=== PATIENT | male | born 1980 | race African-American/Black ===

== ENCOUNTER 2019-08-29 13:02 | Emergency (ER) | payer OTHER, SELFPAY ==
[2019-08-29 13:25] VITALS: BP 150/74; PULSE 84; RESP 20; TEMP 36.7; O2SAT 100
--- NOTE | 2019-08-29 13:50 | ED.SKABFB ---
HPI - Skin/Abscess/Foreign Bdy General Chief complaint: Skin/Abscess/Foreign Body Stated complaint: Boil on Buttock Time Seen by Provider: 08/29/19 13:50 Source: patient Mode of arrival: ambulatory History of Present Illness HPI narrative: PATIENT PRESENTS WITH AREA OF TENDERNESS TO LEFT BUTTOCK. PATIENT STATES IT HAS BEEN THERE FOR 7 DAYS. NO DRAINAGE. NO STREAKING. NO FEVER PATIENT HAS BEEN APPLYING NEOSPORON AND WASHING WITH ANTIBACTERIAL SOAP. Related Data Allergies Allergy/AdvReac Type Severity Reaction Status Date / Time No Known Allergies Allergy Verified 08/29/19 13:45 Review of Systems Review of Systems: Narrative: CONSTITUTIONAL: Denies fever, chills, or sweats. EYES: Denies visual changes, redness, or discharge. ENT: Denies rhinorrhea, congestion, sore throat, or otalgia. CARDIOVASCULAR: Denies chest pain, palpitations, or edema. RESPIRATORY: Denies cough or dyspnea. GASTROINTESTINAL: Denies abdominal pain, nausea, vomiting, or diarrhea. GENITOURINARY: Denies dysuria or hematuria. SKIN: Denies rash or itching. TENDER AREA TO LEFT BUTTOCK MUSCULOSKELETAL: Denies back pain, joint pain, or myalgia. NEUROLOGIC: Denies headache, numbness, or weakness. PSYCHIATRIC: Denies anxiety or depression. All systems reviewed & are unremarkable except as noted in HPI and below PMFSH Social History Social History Gender identity (if verbalized by the patient): Male Comments At time of signature, agree with nursing past medical, surgical, social and family history. There is no relevant family history pertinent to the presenting complaint Exam Narrative: Exam Narrative: GENERAL: Well-appearing, well-nourished, and in no acute distress. HEAD: Normocephalic, atraumatic. EYES: PERRLA and EOMI. ENT: Nares clear, no rhinorrhea or epistaxis. Mucous membranes moist. NECK: Supple. CHEST: Clear to auscultation. No respiratory distress. HEART: Regular rate and rhythm. No murmur heard. Normal peripheral pulses. ABDOMEN: Soft, nontender, nondistended, normal active bowel sounds. EXTREMITIES: Normal range of motion. No edema. SKIN: Warm, dry, no rash. 2CM FIRM AREA TO LEFT BUTTOCK NO STREAKING NO DRAINAGE NO INDURATION NO FLUCTUATION NO INDICATION FOR I & D NEURO: No focal deficits. Alert and oriented x3. [place] Coma Scale Eye Opening: Spontaneous 4 [place] Coma Scale Motor: Obeys Commands 6 [place] Coma Scale Verbal: Oriented 5 [place] Coma Scale Total 15 Skin: Full body images: 1. 2CM ABSCESS Course Vital Signs Vital signs: Vital Signs Temperature 36.7 C 08/29/19 13:25 Pulse Rate 84 08/29/19 13:25 Respiratory Rate 08/29/19 13:25 Blood Pressure 150/74 H 08/29/19 13:25 Pulse Oximetry 100 08/29/19 13:25 Temperature 36.7 C 08/29/19 13:25 Pulse Rate 84 08/29/19 13:25 Respiratory Rate 08/29/19 13:25 Blood Pressure 150/74 H 08/29/19 13:25 Pulse Oximetry 100 08/29/19 13:25 Please LALA schedule a followup visit with your personal physician for further evaluation and treatment. Including recheck and discussion of your blood pressure. If your symptoms persist, change or worsen significantly before you can contact your personal physician then please, without delay, go to the emergency department for further evaluation MDM - Skin/Abscess/Foreign Bdy Differential Diagnosis Differential diagnosis: Likely abscess of skin or subcutaneous tissue, urticaria, herpes zoster, allergic reaction to drug, cellulitis, eczema and insect bites Critical Care Time Critical Care Time Critical Care Time: No Discharge Plan Discharge Clinical Impression: Abscess of skin or subcutaneous tissue, Cellulitis Patient Disposition: Home, Self-Care Condition: Stable Instructions: Antibiotic Form Additional Instructions: Warm compresses to the area 20-30 minutes 4-6 times a day and as needed elevate the area if possible antibiotic as direc
== END 2019-08-29 14:05 | disposition home or self-care (01) ==
PROVIDERS: Emergency Provider Nurse Practitioner Family
DX: L02.31 Cutaneous abscess of buttock (principal); L03.317 Cellulitis of buttock
CPT/HCPCS: 99203; G0463

== ENCOUNTER 2021-01-04 09:41 | Emergency (ER) | payer OTHER, SELFPAY ==
--- NOTE | 2021-01-04 09:44 | ED.SKABFB ---
HPI - Skin/Abscess/Foreign Bdy General Chief complaint: Wound/Laceration Stated complaint: boils Time Seen by Provider: 01/04/21 09:44 Source: patient and RN notes reviewed History of Present Illness HPI narrative: Patient is a 40-year-old male who presents the urgent care with complaints of abscesses to the buttocks and right thigh. Patient states that he gets boils frequently and typically is able to heal them on their own at home with warm compress, peroxide, Neosporin and Hibiclens . Patient states that he has done the home remedies for the last month without any improvement. Patient states the areas are draining but he feels that they are throbbing . Patient denies of any nausea, vomiting, fevers. No other acute complaints. No acute distress noted. Patient aware of the plan of care. Some parts of this dictation were generated by voice recognition software and may contain typographical and/or grammatical inaccuracies. Related Data Allergies Allergy/AdvReac Type Severity Reaction Status Date / Time No Known Allergies Allergy Verified 01/04/21 10:00 Review of Systems Review of Systems: Narrative: CONSTITUTIONAL: Denies fever, chills, or sweats. EYES: Denies visual changes, redness, or discharge. ENT: Denies rhinorrhea, congestion, sore throat, or otalgia. CARDIOVASCULAR: Denies chest pain, palpitations, or edema. RESPIRATORY: Denies cough or dyspnea. GASTROINTESTINAL: Denies abdominal pain, nausea, vomiting, or diarrhea. GENITOURINARY: Denies dysuria or hematuria. SKIN: Reports of abscesses to the buttocks and right thigh MUSCULOSKELETAL: Denies back pain, joint pain, or myalgia. NEUROLOGIC: Denies headache, numbness, or weakness. All other systems reviewed are negative, except as documented in HPI. PMFSH Social History Social History Gender identity (if verbalized by the patient): Male Comments At the time of my signature, I reviewed and agree with the nursing past medical, surgical, social, and family history. There is no relevant family history pertinent to the patient complaint. Exam Narrative: Exam Narrative: GENERAL: This is a well-nourished, well-developed patient, in no apparent distress. HEAD: normocephalic, atraumatic. EYES: PERRL. Sclera clear/white. Vision is grossly intact. EARS: External ears normal NOSE: External nose normal with no obvious nasal discharge, nares without redness, no rhinorrhea. THROAT: Mucous membranes moist NECK: Neck supple CARDIOVASCULAR: Regular rate and rhythm without murmurs, gallops, or rubs. RESPIRATORY: Clear to auscultation. Breath sounds equal bilaterally. No wheezes, rales, or rhonchi. SKIN: 5 x 5 cm of firm nonfluctuant abscess with 2 cm draining center to the right lateral thigh, 2 x 2 centimeter draining abscess to the right gluteal fold, 2 x 2 centimeter abscess draining to the left gluteal fold NEURO: awake, alert, and oriented to person, place and time. There were no obvious focal neurologic abnormalities. EXTREMITIES: No clubbing, cyanosis, or edema. Course Vital Signs Vital signs: Vital Signs Temperature 99.1 F 01/04/21 09:53 Pulse Rate 86 01/04/21 09:53 Respiratory Rate 20 01/04/21 09:53 Blood Pressure 143/90 H 01/04/21 09:53 Pulse Oximetry 100 01/04/21 09:53 Temperature 99.1 F 01/04/21 09:53 Pulse Rate 86 01/04/21 09:53 Respiratory Rate 20 01/04/21 09:53 Blood Pressure 143/90 H 01/04/21 09:53 Pulse Oximetry 100 01/04/21 09:53 Reviewed-patient is informed that they may have pre-hypertension or hypertension based on a blood pressure reading in the department. I recommend the patient call the primary care provider listed on their discharge instructions or a physician of their choice this week to arrange follow-up for further evaluation of possible pre-hypertension or hypertension. MDM - Skin/Abscess/Foreign Bdy MDM Narrative Medical decision making narrative: Advised the
[2021-01-04 09:53] VITALS: BP 143/90; PULSE 86; RESP 20; TEMP 37.3; O2SAT 100
== END 2021-01-04 10:15 | disposition home or self-care (01) ==
PROVIDERS: Emergency Provider Nurse Practitioner Family; PCP Family Medicine
DX: L02.31 Cutaneous abscess of buttock (principal); L02.415 Cutaneous abscess of right lower limb
CPT/HCPCS: 99213; G0463

== ENCOUNTER 2022-06-29 10:27 | Emergency (ER) | payer SELFPAY ==
--- NOTE | 2022-06-29 10:30 | ED.EXTPRO ---
HPI - Extremity Problem General Chief complaint: Skin/Abscess/Foreign Body Stated complaint: Left Foot /Toe Pain Time Seen by Provider: 06/29/22 10:30 Source: patient Mode of arrival: ambulatory Limitations: no limitations History of Present Illness HPI Narrative: Zachary is a 42-year-old male patient presenting to the clinic today with complaints of left great toe pain x2 months He reports it is painful and swollen at the distal joint. He denies any injury to the toe. He denies any fever or chills. Is able to move the toe with mild pain Related Data Allergies Allergy/AdvReac Type Severity Reaction Status Date / Time No Known Allergies Allergy Verified 06/29/22 10:38 Review of Systems Review of Systems: Pertinent positives per HPI. Patient denies any fever, chills, rash, headache, visual changes, dizziness, cough, runny nose, sore throat, shortness of breath, chest pain, palpitations, nausea, vomiting, diarrhea, constipation, abdominal pain, or any urinary issues. PMFSH Social History Social History Gender identity (if verbalized by the patient): Male Comments At the time of my signature, I reviewed and agree with the nursing past medical, surgical, social, and family history. There is no relevant family history pertinent to the patient complaint. Exam Narrative: General: Well-developed, well nourished, in no apparent distress Head: Normocephalic, atraumatic. Cardio: Regular rate and rhythm, s1 and s2 normal, no murmur appreciated. Resp: Clear to auscultation bilaterally, no rhonchi, rales, wheezing or rubs. Musculoskeletal: No deformity, redness and swelling noted at the PIP joint, tender to palpation over the PIP joint of the left great, grossly normal range of motion, muscle strength strong and equal, peripheral pulse strong, no edema, no cyanosis, normal gait and station Course Course Emergency Course: Portions of this record may have been created with voice recognition software. Level of Care: Express Care Visit Vital Signs Vital signs: Vital Signs Temperature 36.9 C 06/29/22 10:36 Pulse Rate 71 06/29/22 10:36 Respiratory Rate 16 06/29/22 10:36 Blood Pressure 132/84 06/29/22 10:36 Pulse Oximetry 99 06/29/22 10:36 Oxygen Delivery Room Air 06/29/22 10:36 Temperature 36.9 C 06/29/22 10:36 Pulse Rate 71 06/29/22 10:36 Respiratory Rate 16 06/29/22 10:36 Blood Pressure 132/84 06/29/22 10:36 Pulse Oximetry 99 06/29/22 10:36 Oxygen Delivery Room Air 06/29/22 10:36 Vital signs reviewed MDM - Extremity (Nontraumatic) MDM Narrative Medical decision making narrative: At the time of visit patient is resting comfortably on exam table. no sign of an ingrown toenail.I suspect the patient either has gouty arthritis or possibly an infection. Prescription for prednisone, colchicine, and doxycycline was sent to the pharmacy. Supportive measures were discussed with the patient and he voiced understanding of discharge instructions agrees to treatment plan Differential Diagnosis Differential diagnosis: Likely cellulitis and other ( Gouty arthritis, infection) Discharge Plan Discharge Clinical Impression: Pain of great toe Qualifiers: Laterality: left Qualified Code(s): M79.675 - Pain in left toe(s) Patient Disposition: Home, Self-Care Condition: Stable Instructions: Antibiotic Form, Low Purine Diet (ED), Gout (ED) Additional Instructions: Take prednisone, colchicine, and doxycycline as prescribed May take Tylenol/ Motrin as needed for pain/fever Follow-up with your PCP and 1 week if symptoms persist or sooner if they worsen Prescriptions: New doxycycline monohydrate 100 mg capsule 100 mg PO BID 7 Days Qty: 14 0RF prednisone 20 mg tablet 40 mg PO DAILY 5 Days Qty: 10 0RF colchicine 0.6 mg capsule 0.6 mg PO DAILY Qty: 3 0RF Rx Instructions: take 2 caps x1 do
[2022-06-29 10:36] VITALS: BP 132/84; PULSE 71; RESP 16; TEMP 36.9; O2SAT 99
== END 2022-06-29 10:45 | disposition home or self-care (01) ==
PROVIDERS: Emergency Provider Nurse Practitioner Family; PCP Family Medicine
DX: M79.675 Pain in left toe(s) (principal)
CPT/HCPCS: 99213; G0463

== ENCOUNTER 2024-06-20 13:16 | Emergency (ER) | payer OTHER, SELFPAY ==
[2024-06-20 13:30] VITALS: BP 188/100; PULSE 128; RESP 20; TEMP 37.5; O2SAT 100
--- NOTE | 2024-06-20 13:57 | ED_ITS ---
HPI - Skin/Abscess/Foreign Bdy General Chief complaint: Skin/Abscess/Foreign Body Stated complaint: Skin Sore Time Seen by Provider: 06/20/24 13:55 Source: patient, RN notes reviewed and old records reviewed Mode of arrival: ambulatory Limitations: no limitations History of Present Illness HPI narrative: 44 year old male presents to express care with complaint of draining abscess from his left inner fold buttock that is painful for the past week which is worsening. Patient reports that he has had previous abscess to same area X2 in the past and had to have surgical debridement done at [facility] by Dr Lugo who is no longer there. Patient reports that site opened today and started draining with some relief in pressure to area. Patient reports that he has taken Tylenol applied MARÍA, and applied warm compresses to site. MD complaint: abscess/boil Onset (ago): week(s) (1) Location: buttocks (left inner fold of left buttock) Severity scale (1-10): 10 Quality: aching, sharp and constant Treatments prior to arrival: other (Tylenol MARÍA, warm compresses) Related Data Allergies Allergy/AdvReac Type Severity Reaction Status Date / Time No Known Allergies Allergy Verified 06/20/24 14:05 Review of Systems Review of Systems: CONSTITUTIONAL: Denies fever, chills, or sweats. CARDIOVASCULAR: Denies chest pain, palpitations, or edema. RESPIRATORY: Denies cough or dyspnea. GASTROINTESTINAL: Denies abdominal pain, nausea, vomiting SKIN: Reports redness and swelling. Reports purulent drainage from left mid inner buttock which started today, pain beyond proportion MUSCULOSKELETAL: Denies myalgia. NEUROLOGIC: Denies headache, numbness All systems reviewed & are unremarkable except as noted in HPI and below PMFSH Past Medical History Medical History (Updated 06/22/24 @ 14:20 by Bethany Alexander NP) History of drainage of abscess Abscess of left buttock Social History Social History Gender identity (if verbalized by the patient): Male Comments At time of signature, agree with nursing past medical, surgical, social and family history. There is no relevant family history pertinent to the presenting complaint Exam Narrative: GENERAL: Well-appearing, well-nourished, and in some acute distress. HEAD: Normocephalic, atraumatic. EYES: PERRLA and EOMI. ENT: Nares clear, no rhinorrhea or epistaxis. Mucous membranes moist.TM's normal throat pink with no swelling NECK: Supple. no lymphadenopathy CHEST: Clear to auscultation. No respiratory distress. SAO2 100% on room air HEART: Regular rate and rhythm. No murmur heard. Normal peripheral pulses. ABDOMEN: Soft, nontender, nondistended, normal active bowel sounds. EXTREMITIES: Normal range of motion. No edema. SKIN: Warm, dry. Erythema, tenderness, fluctuant tissue to the left mid inner buttocks warmth with tissue 4cm length and 3 cm width with purulent bloody drainage noted, wound culture obtained and expressed some of the purulent drai nage from wound, cleansed tissue with wound cleanser and applied fluffed 4X4's to area. NEURO: No focal deficits. Alert and oriented x3. Course Course Emergency Course: Patient is aware of diagnosis, understands and agrees to treatment plan. Anticipatory guidance given. Patient agrees to follow-up as directed and is aware of reasons to seek care at the emergency department. Portions of this record may have been created with voice recognition software Level of Care: Express Care Visit Vital Signs Vital signs: Vital Signs Temperature 37.5 C 06/20/24 13:30 Pulse Rate 128 H 06/20/24 13:30 Respiratory Rate 20 06/20/24 13:30 Blood Pressure 188/100 H 06/20/24 13:30 Pulse Oximetry 100 06/20/24 13:30 Oxygen Delivery Room Air 06/20/24 13:30 Temperature 37.5 C 06/20/24 13:30 Pulse Rate 128 H 06/20/24 13:30 Respiratory Rate 20 06/20/24 13:30 Blood Pressure 188/100 H 06/20/24 13:30 Pulse Oximetry 100 06/20/24 13:30 Oxygen Delivery Room Air 06/20/24 13:30 Reviewed MDM - Skin/Abscess/Foreign Bdy MDM Narrative Medical decision making narrative: Does not appear at this time to be erythema multiforme, bullous, SJS, TEN; no evidence at this time to suggest RMSF, endocarditis or Lyme disease; patient looks well, nontoxic and is tolerating oral intake; no neurologic signs or symptoms; no headache, photophobia or neck pain; afebrile; appropriate for initial outpatient treatment; discussed the importance of follow-up, patient agrees. Patient does not have history of penetrating trauma, laceration, blunt trauma, recent surgery, immunosuppression, malignancy, obesity, alcoholism, corticosteroid use. Question cellulitis, necrotizing soft tissue infection, abscess. Differential Diagnosis Differential diagnosis: Likely abscess of skin or subcutaneous tissue, cellulitis and other (bacterial wound infection) Medical Records Attestation: I reviewed the patient's medical records. Critical Care Time Critical Care Time Critical Care Time: No Discharge Plan Discharge Clinical Impression: Abscess of left buttock Patient Disposition: Home, Self-Care Condition: Stable Instructions: Antibiotic Form, Abscess (ED) Additional Instructions: Standard shower and wash left buttocks using Hibiclens soap twice daily then apply Bactroban ointment watch for increasing infection--redness, swelling, drainage Tylenol or ibuprofen for fever or pain [place] for severe pain #10. Given Call who is our surgeon on-call at [facility] to set up appointment [phone] follow up with PCP in 7-10 days for a wound check recheck if develop fever, chills, increasing symptom Go to the ER if your symptoms become worse of if ANY new symptoms develop Wound culture sent Antibiotic ordered take all doses with food If your symptoms persist, change or worsen significantly before you can contact your personal physician then please, without delay, go to the emergency department for further evaluation. Follow-up with PCP in 7-10 days or sooner if needed Follow up with PCP soon in regards to your blood pressure which is elevated above threshold for referral. Blood pressure above 120/80 may indicate pre- hypertension.188/100 Patient Language: Citizen Of [place] Prescriptions: New clindamycin HCl 300 mg capsule 300 mg PO Q8H Qty: 30 0RF hydrocodone-acetaminophen 5-325 mg tablet 1 tablet PO Q6H PRN (Reason: pain) Qty: 10 0RF mupirocin 2 % ointment 1 applic topical BID Qty: 22 0RF Follow-up/Referrals: Rc,Bj Kaminski MD [Primary Care Provider] - Ritchie Jacobson DO [Physician] - (abscess left buttock has had 2 previous surgery's on area. wound culture sent patient started on oral clindamycin) Time of Disposition: 14:16 Quality [place] Coma Scale Eyes: Open Verbal: Oriented and Alert Motor: Follows Commands [place] Coma Total Score: 15
--- OUTSIDE RECORDS SUMMARY | 2024-06-27 19:49 | XMS_ITS | Encounter Summary ---
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 Name Role Phone Bj Tatum MD Primary Care Provider [phone] Jonas Marte MD Unavailable Reason for Referral * Consult, Test & Initiate Treatment (Routine) - Canceled Specialty Diagnoses / Procedures Referred By Contportia solis Referred To Contact Diagnoses Hidradenitis suppurativa of anus Jonas Marte MD #[address] [address] Phone: tel: fax: DERMATOLOGY & [facility] SURG[facility] [address] [place] [address] Phone: tel: Referral ID Status Reason Start Date Expiration Date V isits Requested Visits Authorized [id number] Canceled 01/17/2024 1 1 Scheduling Instructions Zachary is being referred to dermatology or other specialist in patient's insurance network for hidradenitis suppurativa of anus See below for Zahcary's current medications, allergies and problem list. CURRENT MEDS: Current Outpatient Medications: MAGNESIUM LACTATE PO, Take by mouth., Disp: , Rfl: POTASSIUM CHLORIDE PO, Take by mouth., Disp: , Rfl: sulfamethoxazole-trimethoprim DS (BACTRIM DS, SEPTRA DS) 800-160 MG Tablet, Take 1 Tablet by mouth 2 times daily for 14 days., Disp: 28 Tablet, Rfl: 0 Turmeric (QC TUMERIC COMPLEX PO), Take 1,000 mg by mouth., Disp: , Rfl: VITAMIN D PO, Take by mouth daily., Disp: , Rfl: No current facility-administered medications for this visit. ALLERGIES: No Known Allergies PROBLEM LIST: Patient Active Problem List: Hidradenitis suppurativa Rectal bleeding Family history of colon cancer Ex-smoker Elevated liver enzymes Hematuria History of substance abuse (HCC) Hyperglycemia Hepatic steatosis Lesion of pancreas Adult acne Leukocytosis Obesity (BMI 30-39.9) Toe pain, left Noncompliance Hyperlipidemia Reason for Visit * Reason Comments Abscess Encounter Details Date Type Department Care Team (Late st Contact Info) Description 01/17/2024 12:00 PM CDT Office Visit [facility] - General Surgery [facility] [address] [address] Jonas Marte MD #[address] [address] Hidradenitis suppurativa of anus (Primary Dx) Discharge Disposition: Discharged to home or Selfcare Social History Tobacco Use Types Packs/Day Years Used Date Smoking Tobacco: Former Cigarettes 1 21 0 07/17/1995 - 07/17/2016 Smokeless Tobacco: Never Alcohol Use Standard Drinks/Week Comments Not Currently 7 (1 standard drink = 0.6 oz pur e alcohol) quit liquor and beer in 2021 PHQ-2 Answer Date Recorded PHQ-2 Score 0 05/05/2019 Sexually Active Control Partners Comments Yes Female Sex and Gender Information Value Date Recorded Sex Assigned at Not on file Legal Sex Male 8:52 PM CDT Gender Identity Not on file Sexual Orientation Not on file documented as of this encounter Last Filed Vital Signs Vital Sign Reading Time Taken Comments Blood Pressure 134/82 01/17/2024 11:55 AM CDT Pulse 91 01/17/2024 11:55 AM CDT Temperature 36.1 ??C (96.9 ??F) 01/17/2024 11:55 AM C DT Respiratory Rate - - Oxygen Saturation 98% 01/17/2024 11:55 AM CDT Inhaled Oxygen Concentration - - Weight 106.1 kg (234 lb) 01/17/2024 11:55 AM CDT Height 185.4 cm (6' 1 ) 01/17/2024 11:55 AM CDT Body Mass Index 30.87 01/17/2024 11:55 AM CDT documented in this encounter Progress Notes * Jonas Marte MD - 01/17/2024 12:00 PM CDT ASSESSMENT: Hidradenitis of the perianal area, now draining PLAN: Bactrim prescribed Needs to see Dermatology for hidradenitis as well as acne on his face and other items. I think theycan definitely give a good medical perspective on how to manage all of his issues. SUBJECTIVE: Zachary Capps is a 44 y.o. male who I saw last for hidradenitis. He now has another hidradenitisof the perianal area, in addition to assist that burst on his head and some acne of his left face. The hidradenitis of the perianal area has actually burst last night. He had actually called me yesterday morning but it has since started to drain. Not able to sit down to well. The 1 on his head was squeezed out by his girlfriend and a lot of stuff came out. I think he needs to see Dermatology for better care of the hidradenitis as well as the acne and other items. Bactrim was prescribed. OBJECTIVE: BP 134/82 (BP Location: Left Arm, BP Position: Sitting, BP Cuff Size: Regular) Pulse 91 Temp 96.9 ??F (36.1 ??C) (Temporal) Ht 6' 1 (1.854 m) Wt 234 lb (106.1 kg) SpO2 98% BMI 30.87 kg/m?? Gen: nad Scalp: Burst wound that has pretty much healed up Rectum: School Speech Language Pathologist present for rectal exam. Right anterior quadrant with ruptured hidradenitis at his actively draining. Left hidradenitis that is chronic and not draining right now Face: Some areas of acne on his left cheek documented in this encounter Miscellaneous Notes * Addendum Note - Mason Schulz RN - 01/17/2024 12:00 PM CDTAddended by: MASON SCHULZ on: 01/17/2024 12:35 PM Modules accepted: Orders documented in this encounter Plan of Treatment Upcoming Encounters Date Type Department Care Team (Late st Contact Info) Description 11/26/2024 1:45 PM CDT Office Visit [facility] - Family [facility] #2 [place] [address] Bj Tatum MD #[address] [address] Scheduled Referrals Name Type Priority Associated Diagnoses Orde r Schedule EXTERNAL DERMATOLOGY REFERRAL Outpatient Referral Routine Hidradenitis suppurativa of anus Expected: 01/17/2024, Expires: 01/16/2025 documented as of this encounter Visit Diagnoses Diagnosis Hidradenitis suppurativa of anus- Primary Hidradenitis documented in this encounter Additional Health Concerns Assessment Noted Time PHQ-9 Depression Total Score: 0 05/05/20 19 3:00 PM PHARMACY STUDENT documented as of this encounter Care Teams Aircraft General Repair Mechanic Relationship Specialty Start Date End Date Bj Tatum MD #[address] [address] PCP - General Family Medicine 05/31/15 Jonas Marte MD #[address] [address] Consulting Physician Colon and Rectal Surgery 12/20/23 documented as of this encounter
--- OUTSIDE RECORDS SUMMARY | 2024-06-27 19:49 | XMS_ITS | Encounter Summary ---
Author Organization [facility] Address [address] [place] [address] Care Team Providers Care Adjunct Mathematics Instructor Name Role Phone Unavailable Primary Care Provider Unavailabl e Reason for Visit * Reason Comments Cough one week Dizziness Breathing Problem Wheezing Encounter Details Date Type Department Care Team (Late st Contact Info) Description 05/16/2016 11:20 AM COMPOSING MACHINE OPERATOR/TENDER Office Visit [facility] [address] [phone] Provider, [facility] Acute bronchitis, unspecified organism (Primary Dx); Abnormal chest sounds Social History Tobacco Use Types Packs/Day Years Used Date Smoking Tobacco: Every Day Sex and Gender Information Value Date Recorded Sex Assigned at Not on file Gender Identity Not on file Sexual Orientation Not on file documented as of this encounter Last Filed Vital Signs Vital Sign Reading Time Taken Comments Blood Pressure 118/84 05/16/2016 2:45 PM COMPOSING MACHINE OPERATOR/TENDER Pulse 79 05/16/2016 2:45 PM COMPOSING MACHINE OPERATOR/TENDER Temperature 37.1 ??C (98.7 ??F) 05/16/2016 2:45 PM CS T Respiratory Rate - - Oxygen Saturation - - Inhaled Oxygen Concentration - - Weight 93 kg (205 lb) 05/16/2016 2:45 PM COMPOSING MACHINE OPERATOR/TENDER Height 185.4 cm (6' 1 ) 05/16/2016 2:45 PM COMPOSING MACHINE OPERATOR/TENDER Body Mass Index 27.05 05/16/2016 2:45 PM COMPOSING MACHINE OPERATOR/TENDER documented in this encounter Patient Instructions * Patient Instructions* Sweetie Roth APRN-CNP - 05/16/2016 2:55 PM COMPOSING MACHINE OPERATOR/TENDER Images from the original note were not included. Acute Bronchitis BACKEND PYTHON DEVELOPER: Acute bronchitis is swelling and irritation in the air passages of your lungs. This irritation may cause you to cough or have other breathing problems. Acute bronchitis often starts because of another illness, such as a cold or the flu. The illness spreads from your nose and throat to your windpipeand airways. Bronchitis is often called a chest cold. Acute bronchitis lasts about 3 weeks and is usually not a serious illness. Your cough can last for several weeks. You may have any of the following symptoms: ?? A cough with sputum that may be clear, yellow, or green ?? Feeling more tired than usual, and body aches ?? A fever and chills ?? Wheezing when you breathe ?? A tight chest or pain when you breathe or cough Seek care immediately if: ?? You cough up blood. ?? Your lips or fingernails turn blue. ?? You feel like you are not getting enough air when you breathe. Contact your healthcare provider if: ?? You have a fever. ?? Your breathing problems do not go away or get worse. ?? Your cough does not get better within 4 weeks. ?? You have questions or concerns about your condition or care. Self-care: ?? Get more rest. Rest helps your body to heal. Slowly start to do more each day. Rest when you feel it is needed. ?? Avoid irritants in the air. Avoid chemicals, fumes, and dust. Wear a face mask if you must work around dust or fumes. Stay inside on days when air pollution levels are high. If you have allergies,stay inside when pollen counts are high. Do not use aerosol products, such as spray-on deodorant, bug spray, and hair spray. ?? Do not smoke or be around others who smoke. Nicotine and other chemicals in cigarettes and cigars damages the cilia that move mucus out of your lungs. Ask your healthcare provider for information if you currently smoke and need help to quit. E-cigarettes or smokeless tobacco still contain nicotine. Talk to your healthcare provider before you use these products. ?? Drink liquids as directed. Liquids help keep your air passages moist and help you cough up mucus. You may need to drink more liquids when you have acute bronchitis. Ask how much liquid to drink each day and which liquids are best for you. ?? Use a humidifier or vaporizer. Use a cool mist humidifier or a vaporizer to increase air moisture in your home. This may make it easier for you to breathe and help decrease your cough. Prevent acute bronchitis by doing the following: ?? Get the vaccinations you need. Ask your healthcare provider if you should get vaccinated againstthe flu or pneumonia. ?? Prevent the spread of germs. You can decrease your risk of acute bronchitis and other illnesses by doing the following: ?? Wash your hands often with soap and water. Carry germ-killing hand lotion or gel with you. You can use the lotion or gel to clean your hands when soap and water are not available. ?? Do not touch your eyes, nose, or mouth unless you have washed your hands first. ?? Always cover your mouth when you cough to prevent the spread of germs. It is best to cough into a tissue or your shirt sleeve instead of into your hand. Ask those around you cover their mouths when they cough. ?? Try to avoid people who have a cold or the flu. If you are sick, stay away from others as much as possible. Medicines: Your healthcare provider may give you any of the following: ?? Ibuprofen or acetaminophen are medicines that help lower your fever. They are available without a doctor's order. Ask your healthcare provider which medicine is right for you. Ask how much to takeand how often to take it. Follow directions. These medicines can cause stomach bleeding if not taken correctly. Ibuprofen can cause kidney damage. Do not take ibuprofen if you have kidney disease, anulcer, or allergies to aspirin. Acetaminophen can cause liver damage. Do not take more than 4,000 milligrams in 24 hours. ?? Decongestants help loosen mucus in your lungs and make it easier to cough up. This can help you breathe easier. ?? Cough suppressants decrease your urge to cough. If your cough produces mucus, do not take a cough suppressant unless your healthcare provider tells you to. Your healthcare provider may suggest that you take a cough suppressant at night so you can rest. ?? Inhalers may be given. Your healthcare provider may give you one or more inhalers to help you breathe easier and cough less. An inhaler gives your medicine to open your airways. Ask your healthcare provider to show you how to use your inhaler correctly. ?? An antibiotic may be given if your acute bronchitis is caused by a bacterial infection. Follow up with your healthcare provider as directed: Write down questions you have so you will remember to ask them during your follow-up visits. ?? 2016 [employer]. Information is for End User's use only and may not be sold, redistributed or otherwise used for commercial purposes. All illustrations and images included in CareNotes?? are the copyrighted property of [employer]. or [employer]. The above information is an public health aides teacher only. It is not intended as medical advice for individual conditions or treatments. Talk to your doctor, nurse or pharmacist before following any medical regimen to see if it is safe and effective for you. OSING MACHINE OPERATOR/TENDER documented in this encounter Progress Notes * Sweetie Roth APRN-CNP - 05/16/2016 2:49 PM CST [facility] Chief Complaint Patient presents with ??? Cough one week ??? Dizziness ??? Breathing Problem ??? Wheezing SUBJECTIVE: HPI No past medical history on file. No current outpatient prescriptions on file prior to visit. No current facility-administered medications on file prior to visit. No past surgical history on file. History Social History ??? Marital status: Single Spouse name: N/A ??? Number of children: N/A ??? Years of education: N/A Occupational History ??? Not on file. Social History Main Topics ??? Smoking status: Current Every Day Smoker ??? Smokeless tobacco: Not on file ??? Alcohol use: Not on file ??? Drug use: Not on file ??? Sexual activity: Not on file Other Topics Concern ??? Not on file Social History Narrative ??? No narrative on file No family history on file. Current Outpatient Prescriptions Medication Sig Dispense Refill ??? methylPREDNISolone (MEDROL DOSEPAK) 4 MG tablet Take by mouth as directed 1 Each 0 ??? albuterol HFA (PROVENTIL;VENTOLIN;PROAIR) 108 (90 BASE) MCG/ACT inhaler Inhale 2 Puffs by mouthevery 6 hours as needed 3 Inhaler 3 ??? azithromycin (ZITHROMAX) 250 MG tablet Take 2 tablets now, then 1 tablet daily for 4 days. 6 Tab 0 ??? benzonatate (TESSALON) 200 MG capsule Take 1 Cap by mouth 3 times daily as needed for Cough 30 Cap 0 No current facility-administered medications for this visit. No Known Allergies REVIEW OF SYSTEMS: Review of Systems Constitutional: Negative. HENT: Negative. Respiratory: Positive for cough, shortness of breath and wheezing. Neurological: Negative. Psychiatric/Behavioral: Negative. OBJECTIVE: General appearance: alert, well appearing, and in no distress. BP 118/84 Pulse 79 Temp 98.7 ??F Wt 93 kg (205 lb) BMI 27.05 kg/m2 Physical Exam Constitutional: He is oriented to person, place, and time. apears ill HENT: Head: Normocephalic. Right Ear: External ear normal. Left Ear: External ear normal. Nose: Nose normal. Mouth/Throat: Oropharynx is clear and moist. Neck: Normal range of motion. Neck supple. Cardiovascular: Normal rate. Pulmonary/Chest: He has wheezes. sats 98 RA. Persistent cough throughout exam Neurological: He is alert and oriented to person, place, and time. Skin: Skin is warm. ASSESSMENT: No results found for this visit on 05/16/16. Encounter Diagnoses Name Primary? Acute bronchitis, unspecified organism Yes ??? Abnormal chest sounds PLAN: Orders Placed This Encounter ??? methylPREDNISolone (MEDROL DOSEPAK) 4 MG tablet Sig: Take by mouth as directed Dispense: 1 Each Refill: 0 ??? albuterol HFA (PROVENTIL;VENTOLIN;PROAIR) 108 (90 BASE) MCG/ACT inhaler Sig: Inhale 2 Puffs by mouth every 6 hours as needed Dispense: 3 Inhaler Refill: 3 ??? azithromycin (ZITHROMAX) 250 MG tablet Sig: Take 2 tablets now, then 1 tablet daily for 4 days. Dispense: 6 Tab Refill: 0 ??? benzonatate (TESSALON) 200 MG capsule Sig: Take 1 Cap by mouth 3 times daily as needed for Cough Dispense: 30 Cap Refill: 0 OSING MACHINE OPERATOR/TENDER documented in this encounter Plan of Treatment Not on file documented as of this encounter Visit Diagnoses Diagnosis Acute bronchitis, unspecified organism- Primary Abnormal chest sounds documented in this encounter
--- OUTSIDE RECORDS SUMMARY | 2024-06-27 19:49 | XMS_ITS | Patient Health Summary ---
Author Organization [facility] Address [address] [place] [address] Care Team Providers Care Human Resources Psychologist Name Role Phone Unavailable Primary Care Provider Unavailabl e Note from [facility] [place],non-owned Affiliates and Associated Physician Practices is amultiple site organization consisting of ambulatory clinics and hospital sitesin [place], [place], [place] and [place]. This disclosure is being madepursuant to the Care Everywhere program and may not contain all information available regarding this patient. Last updated 18.[facility] Allergies No known active allergies Medications * Be aware that medications may not be up to date on this document. Alwaysverify current medications with the patient. * methylPREDNISolone (MEDROL DOSEPAK) 4 MG tablet(Started 05/16/2016) Take by mouth as directed * albuterol HFA (PROVENTIL;VENTOLIN;PROAIR) 108 (90 BASE) MCG/ACT inhaler (Started 05/16/2016) Inhale 2 Puffs by mouth every 6 hours as needed 3 refills remaining * benzonatate (TESSALON) 200 MG capsule(Started 05/16/2016) Take 1 Cap by mouth 3 times daily as needed for Cough Social History Tobacco Use Types Packs/Day Years Used Date Smoking Tobacco: Every Day Sex and Gender Information Value Date Recorded Sex Assigned at Not on file Gender Identity Not on file Sexual Orientation Not on file Last Filed Vital Signs Vital Sign Reading Time Taken Comments Blood Pressure 118/84 05/16/2016 2:45 PM CYLINDER BLOCK MECHANIC Pulse 79 05/16/2016 2:45 PM CYLINDER BLOCK MECHANIC Temperature 37.1 ??C (98.7 ??F) 05/16/2016 2:45 PM CS T Respiratory Rate - - Oxygen Saturation - - Inhaled Oxygen Concentration - - Weight 93 kg (205 lb) 05/16/2016 2:45 PM CYLINDER BLOCK MECHANIC Height 185.4 cm (6' 1 ) 05/16/2016 2:45 PM CYLINDER BLOCK MECHANIC Body Mass Index 27.05 05/16/2016 2:45 PM CYLINDER BLOCK MECHANIC
--- OUTSIDE RECORDS SUMMARY | 2024-06-27 19:49 | XMS_ITS | Referral Summary ---
Author Organization [facility] [facility] Address [address] [address] Care Team Providers Care Aircraft Technician Name Role Phone Unavailable Primary Care Provider Unavailabl e Source Comments [facility],non-owned Affiliates and Associated Physician Practices is amultiple site organization consisting of ambulatory clinics and hospital sitesin [place], [place], [place] and [place]. This disclosure is being madepursuant to the Care Everywhere program and may not contain all information available regarding this patient. Last updated 18.[facility] Allergies No known active allergies Medications * Be aware that medications may not be up to date on this document. Alwaysverify current medications with the patient. Medication Sig Dispensed Refills Start Date End Date Status methylPREDNISolone (MEDROL DOSEPAK) 4 MG tablet Take by mouth as directed 1 Each 05/16/2016 Active albuterol HFA (PROVENTIL;VENTOLIN; PROAIR) 108 (90 BASE) MCG/ACT inhaler Inhale 2 Puffs by mouth every 6 hours as needed 3 Inhaler 3 05/16/2016 Active benzonatate (TESSALON) 200 MG capsule Take 1 Cap by mouth 3 times daily as needed for Cough 30 Cap 05/16/2016 Active Social History Tobacco Use Types Packs/Day Years Used Date Smoking Tobacco: Every Day Sex and Gender Information Value Date Recorded Sex Assigned at Not on file Gender Identity Not on file Sexual Orientation Not on file Last Filed Vital Signs Vital Sign Reading Time Taken Comments Blood Pressure 118/84 05/16/2016 2:45 PM PATHOLOGY SPECIALIST Pulse 79 05/16/2016 2:45 PM PATHOLOGY SPECIALIST Temperature 37.1 ??C (98.7 ??F) 05/16/2016 2:45 PM CS T Respiratory Rate - - Oxygen Saturation - - Inhaled Oxygen Concentration - - Weight 93 kg (205 lb) 05/16/2016 2:45 PM PATHOLOGY SPECIALIST Height 185.4 cm (6' 1 ) 05/16/2016 2:45 PM PATHOLOGY SPECIALIST Body Mass Index 27.05 05/16/2016 2:45 PM PATHOLOGY SPECIALIST Plan of Treatment Not on file
--- OUTSIDE RECORDS SUMMARY | 2024-06-27 19:49 | XMS_ITS | Encounter Summary ---
Author Organization [facility] [employer] Care Team Providers Care Sheriff Detective Name Role Phone Bj Tatum MD Primary Care Provider [phone] Jonas Marte MD Unavailable Encounter Details Date Type Department Care Team (Latest Contact Info) Description 01/17/2024 Travel Social History Tobacco Use Types Packs/Day Years [...] on file documented as of this encounter Plan of Treatment Upcoming Encounters Date Type Department Care Team (Late st Contact Info) Description 11/26/2024 1:45 PM CDT Office Visit [facility] - Family [facility] #2 [place] [address] Bj Tatum MD #[address] [address] documented as of this encounter Visit Diagnoses Not on filedocumented in this encounter Additional Health Concerns Assessment Noted Time PHQ-9 Depression Total Score: 0 05/05/20 19 3:00 PM COURSE INSTRUCTOR documented as of this encounter Care Teams Sheriff Detective Relationship Specialty Start Date End Date Bj Tatum MD #2 [facility] [address] [place] [address] PCP - General Family Medicine 05/31/15 Jonas Marte MD #2 [facility] [address] [place] [address] Consulting Physician Colon and Rectal Surgery 12/20/23 documented as of this encounter
--- OUTSIDE RECORDS SUMMARY | 2024-06-27 19:49 | XMS_ITS | Clinical Summary ---
Author Organization [facility] Address [address] [place] [address] Care Team Providers Care Orchestra Director Name Role Phone Unavailable Primary Care Provider Unavailabl e Source Comments [facility],non-owned Affiliates and Associated Physician Practices is amultiple site organization consisting of ambulatory clinics and hospital sitesin [place], [place], [place] and [place]. This disclosure is being madepursuant to the Care Everywhere program and may not contain all information available regarding this patient. Last updated 18.[facility] Allergies No known active allergies Medications * [...] Comments Blood Pressure 118/84 05/16/2016 2:45 PM COUPON COLLECTION CLERK Pulse 79 05/16/2016 2:45 PM COUPON COLLECTION CLERK Temperature 37.1 ??C (98.7 ??F) 05/16/2016 2:45 PM CS T Respiratory Rate - - Oxygen Saturation - - Inhaled Oxygen Concentration - - Weight 93 kg (205 lb) 05/16/2016 2:45 PM COUPON COLLECTION CLERK Height 185.4 cm (6' 1 ) 05/16/2016 2:45 PM COUPON COLLECTION CLERK Body Mass Index 27.05 05/16/2016 2:45 PM COUPON COLLECTION CLERK Plan of Treatment Health Maintenance Due Date Last Done Comments LIPID TESTING 1980 PNEUMOCOCCAL VACCINE (1 of 2 - PCV) 01/12/1986 HIV SCREENING 01/12/1995 HEPATITIS C SCREENING 01/08/1998 DTAP/TDAP/TD VACCINES (1 - Tdap) 01/12/1999 HEPATITIS B VACCINE (1 of 3 - 19+ 3-dose series) 01/12/1999 DEPRESSION SCREENING 07/01/2023 COVID-19 VACCINE (1 - 2023-2 5 season) 2024 INFLUENZA VACCINE (#1) 2024 ZOSTER VACCINE (1 of 2) 01/12/2030 HIB VACCINE Aged Out No longer eligi ble based on patient's age to complete this topic HPV VACCINE Aged Out No longer eligi ble based on patient's age to complete this topic MENINGOCOCCAL VACCINE Aged Out No enrike ada eligible based on patient's age to complete this topic
--- OUTSIDE RECORDS SUMMARY | 2024-06-27 19:49 | XMS_ITS | Encounter Summary ---
Author Organization [facility] Address [address] [place] [address] Care Team Providers Care Exercise Physiologist Name Role Phone Unavailable Primary Care Provider Unavailabl e Reason for Visit * Reason Onset Date Comments Follow-up 05/18/2016 Encounter Details Date Type Department Care Team (Late st Contact Info) Description 05/18/2016 Telephone [facility] [address] [address] Telma Shankar Follow-up Social History Tobacco Use Types Packs/Day Years Used Date Smoking Tobacco: Every Day Sex and Gender Information Value Date Recorded Sex Assigned at Not on file Gender Identity Not on file Sexual Orientation Not on file documented as of this encounter Miscellaneous Notes * Telephone Encounter - Telma Shankar - 05/18/2016 11:45 AM CST lmtc OMICS LECTURER documented in this encounter Plan of Treatment Not on file documented as of this encounter Visit Diagnoses Not on filedocumented in this encounter
--- OUTSIDE RECORDS SUMMARY | 2024-06-27 19:49 | XMS_ITS | Encounter Summary ---
Author Organization [facility] Address [address] [place] [address] Phone Care Team Providers Care Dry Wall Nailer Name Role Phone Bj Tatum MD Primary Care Provider [phone] Jonas Marte MD Unavailable Reason for Visit * Reason Onset Date Comments Cyst 06/20/2024 Encounter Details Date Type Department Care Team (Late st Contact Info) Description 06/20/2024 Nurse Triage [facility] [address] [place] [address] Bj Tatum MD #[address] [address] Cyst Social History Tobacco Use Types Packs/Day Years [...] encounter Miscellaneous Notes * Telephone Encounter - Heather Kurtz RN - 06/20/2024 12:43 PM CST SITUATION: Cyst BACKGROUND: Caller contacting PCP office. Patient is calling regarding a cyst from the tailbone to almost the anus (along the cheek side). Patient has been dealing with cysts for a while and has had surgeries tohave the cysts removed. ASSESSMENT: Symptom Description / Location: White color, inflamed No drainage Pain: Severe Fever: Chills. Treatment / Response: bacitracin with no relief. RECOMMENDATION: Caller agreeable to disposition: See HCP Within 4 Hours. Care advice provided per triage guideline.Caller verbalized understanding. Due to office unavailability within disposition, advised for patient to be seen at prompt care or urgent care. Caller agreeable to prompt care/urgent care. Medication, allergies, and pharmacy reviewed. - See care advice and disposition for Guideline. First positive answer recorded, all responses to prior questions were negative. If symptoms increase, change or if new symptoms develop, call your health care provider or call back. Recommendations were based on caller information and is not a diagnosis. Verified and reviewed all triage information with caller. Reason for Disposition SEVERE pain (e.g., excruciating) Protocols used: Boil (Skin Abscess)-A- OGRAPHY TECHNICIAN documented in this encounter Plan of Treatment Upcoming Encounters Date Type Department Care Team (Late st Contact Info) Description 11/26/2024 1:45 PM CDT Office Visit [facility] [address] [place] [address] Bj Tatum MD #[address] [address] documented as of this encounter Visit Diagnoses Not on filedocumented in this encounter Additional Health Concerns Assessment Noted Time PHQ-9 Depression Total Score: 0 05/05/20 19 3:00 PM MAMMOGRAPHY TECHNICIAN documented as of this encounter Care Teams Dry Wall Nailer Relationship Specialty Start Date End Date Bj Tatum MD #2 [facility] [address] [place] [address] PCP - General Family Medicine 05/31/15 Jonas Marte MD #2 [facility] [address] [place] [address] Consulting Physician Colon and Rectal Surgery 12/20/23 documented as of this encounter
--- OUTSIDE RECORDS SUMMARY | 2024-06-27 19:49 | XMS_ITS | Clinical Summary ---
Author Organization [facility] Address [address], [address] [address] Phone Care Team Providers Care Mitering Machine Operator Name Role Phone Bj Tatum MD Primary Care Provider Jonas Marte MD Unavailable Allergies No known active allergies Medications VITAMIN D PO Take by mouth daily. Active POTASSIUM CHLORIDE PO Take by mouth. Active MAGNESIUM LACTATE PO Take by mouth. Active Turmeric (QC TUMERIC COMPLEX PO) Take 1,000 mg by mouth. Active Active Problems Problem Noted Date Diagnosed Date Hyperlipidemia 07/25/2022 Toe pain, left 07/10/2022 Noncompliance 07/10/2022 Lesion of pancreas 08/28/2021 Adult acne 08/28/2021 Leukocytosis 08/28/2021 Obesity (BMI 30-39.9) 08/28/2021 Hepatic steatosis 06/17/2019 Hyperglycemia 12/03/2016 Rectal bleeding 09/14/2016 Family history of colon cancer 09/14/2016 Ex-smoker 09/14/2016 Elevated liver enzymes 09/14/2016 Hematuria 09/14/2016 History of substance abuse 09/14/2016 Hidradenitis suppurativa Encounters Date Type Department Care Team Description 06/20/2024 Nurse Triage [facility] [address] [place] [address] Bj Tatum MD Cyst from Last 3 Months Family History Medical History Relation Name Comments Cancer Father esophageal, sto mach Heart Attack Maternal Grandfather Diabetes Maternal Grandmother Diabetes Mother Hypertension Mother No Known Problems Paternal Grandfather No Known Problems Paternal Grandmother Relation Name Status Comments Father Maternal Grandfather Maternal Grandmother Mother Alive Paternal Grandfather Paternal Grandmother Social History Tobacco Use Types Packs/Day Years Used Date Smoking Tobacco: Former Cigarettes 1 21 0 07/17/1995 - 07/17/2016 Smokeless Tobacco: Never Tobacco Cessation:Counseling Given: Not Answered Alcohol Use Standard Drinks/Week Comments Not Currently [...] 01/17/2024 11:55 AM C DT Respiratory Rate 16 11/28/2023 1:44 PM CDT Oxygen Saturation 98% 01/17/2024 11:55 AM CDT Inhaled Oxygen Concentration - - Weight 106.1 kg (234 lb) 01/17/2024 11:55 AM CDT Height 185.4 cm (6' 1 ) 01/17/2024 11:55 AM CDT Body Mass Index 30.87 01/17/2024 11:55 AM CDT Plan of Treatment Upcoming Encounters Date Type Department Care Team (Late st Contact Info) Description 11/26/2024 1:45 PM CDT Office Visit [facility] - Family Medicine [facility] [address] [place] [address] Bj Tatum MD #[address] [address] Health Maintenance Due Date Last Done Comments TdaP Immunization 1980 Hepatitis B Immunization (1 of 3 - 19+ 3-dose series) 01/12/1999 Influenza Immunization (#1) 2024 SARS-COV-2 Immunization (2 - season) 2024 05/03/2022 Respiratory Syncytial Virus (RSV) Immunization (Adult) (1 - 1-dose 75+ series) 01/12/2055 Hepatitis C Virus (HCV) Screening Completed 07/13/2022, 11/23/2016 Meningococcal Immunization (ACWY) Aged Out No longer eligible b ased on patient's age to complete this topic Pneumococcal Immunization Combined Aged Out No longer eligible b ased on patient's age to complete this topic Rotavirus Immunization Aged Out No lo nger eligible based on patient's age to complete this topic Procedures Procedure Name Priority Date/Time Associated Diagnosis Comments HEPATITIS PANEL ACUTE (AHP) Routine 07/13/2022 12:57 PM FORESTRY INSTRUCTOR Elevated liver enzymes from Last 3 Months or Most Recently Relevant to Health Maintenance Results * HEPATITIS PANEL ACUTE (AHP) (07/13/2022 12:57 PM FORESTRY INSTRUCTOR) HEPATITIS A IGM ANTIBODY NON DETECTED NON DETECTED [facility] ARCH [id number] B 07/13/2022 9:24 PM FORESTRY INSTRUCTOR [facility] Comment: IGM Antibodies to HAV not detected. ??Does not exclude early acute or recovered HAV infection. HEP B CORE AB (IGM) NON DETECTED NON DETECTED [facility] ARCH [id number] 07/13/2022 9:24 PM FORESTRY INSTRUCTOR [facility] Comment:IGM anti-HBC not det ected. Does not exclude the possibility of exposure to or infection with HBV. HEPATITIS B SURFACE ANTIGEN NON DETECTED NON DETECTED [facility] ARCH [id number] B 07/13/2022 9:24 PM FORESTRY INSTRUCTOR [facility] Comment:A nonreactive test r esult does not exclude the possibility of exposure to or infection with Hepatitis B virus. A nonreactive test result in individuals with prior exposure to hepatitis B may be due to antigen levels below the detection limit of this assay or lack of antigen reactivity to the antibodies in this assay. hepatitis C antibody 0.11 <1 S/CO [facility] ARCH [id number] 07/13/2022 9:24 PM FORESTRY INSTRUCTOR [facility] Comment: Signal/Cutoff ratio ??< 0.79 is Nondetected Signal/Cutoff ratio 0.80-0.99 is Grayzone Signal/Cutoff ratio > 0.99 is Detected Supplemental assays are recommended if signal/cutoff ratio is >/=1.00. ??Signal/cutoff ratio result >/= 5.00 is 97% predictive of positivity for recombinant immunoblot assay (RIBA) and will be reported to the [place] Department of Public Health as required. Blood Venipuncture / Unknown 07/13/2022 12:57 PM FORESTRY INSTRUCTOR 07/13/2022 2:08 PM FORESTRY INSTRUCTOR us Bj Tatum MD HEMATOLOGY ORDERABLES Final Result [facility] [address] [place] [address], from Last 3 Months or Most Recently Relevant to Health Maintenance Care Teams Mitering Machine Operator Relationship Specialty Start Date End Date Bj Tatum MD #2 [facility] [address] [place] [address] PCP - General Family Medicine 05/31/15 Jonas Marte MD #2 [facility] [address] [place] [address] Consulting Physician Colon and Rectal Surgery 12/20/23
--- OUTSIDE RECORDS SUMMARY | 2024-06-27 19:50 | XMS_ITS | Encounter Summary ---
Author Organization [facility] Address [address] [place] [address] Phone Care Team Providers Care Grain Elevator Agent Name Role Phone Bj Cantu MD Primary Care Provider [phone] Reason for Referral * Radiology Services (Routine) - Closed Specialty Diagnoses / Procedures Referred By Contac t Referred To Contact Radiology Diagnoses Lesion of pancreas Procedures MRI ABDOMEN W/WO CONTRAST Bj Cantu MD #[address] [address] Phone: tel: fax: Referral ID Status Reason Start Date Expiration Date Visits Re quested Visits Authorized [id number] Closed 09/06/2021 1 1 RY SAW OPERATOR Reason for Visit * Reason Onset Date Comments Results 08/28/2021 Encounter Details Date Type Department Care Team (Late st Contact Info) Description 08/28/2021 Telephone [facility] #2 [place] [address] Bj Cantu MD #[address] [address] Results Social History Tobacco Use Types Packs/Day Years Used Date Smoking Tobacco: Former Cigarettes 1 21 0 07/17/1995 - 07/17/2016 Smokeless Tobacco: Never Alcohol Use Standard Drinks/Week Comments Not Currently 0 (1 standard drink = 0.6 oz pur e alcohol) 2-3 beer daily PHQ-2 Answer Date Recorded PHQ-2 Score 0 05/05/2019 Sexually Active Control Partners Comments Yes Sex and Gender Information Value Date Recorded Sex Assigned at Not on file Legal Sex Male 8:52 PM CDT Gender Identity Not on file Sexual Orientation Not on file COVID-19 Exposure Response Date Recorded In the last month, have you been in contact with someone who was confirmed or suspected to have Coronavirus / COVID-19? No / Unsure 08/28/2021 1:44 PM ROTARY SAW OPERATOR documented as of this encounter Miscellaneous Notes * Telephone Encounter - Bj Cantu MD - 09/06/2021 8:22 PM ROTARY SAW OPERATOR Let him know I have ordered an MRI pancreas for further evaluation of the lesion. Order entered. Thanks! RY SAW OPERATOR * Addendum Note - Bj Cantu MD - 09/06/2021 8:22 PM CSTAddended by: BJ CANTU on: 09/06/2021 08:22 PM Modules accepted: Orders RY SAW OPERATOR * Telephone Encounter - Debbie Ramos RN - 09/04/2021 11:27 AM CST Rosalinda called me back. Radiologist said that the CT done in December 2020 was with contrast and the onedone in July 2021 was without so the view may not be the same. He said he would recommend still doing MRI if you are concerned. RY SAW OPERATOR * Telephone Encounter - Debbie Ramos RN - 09/04/2021 10:35 AM CST Spoke with Rosalinda in radiology and she said she will let us know RY SAW OPERATOR * Telephone Encounter - Bj Cantu MD - 09/01/2021 9:55 PM ROTARY SAW OPERATOR Please check back with Radiology next week. Thanks! RY SAW OPERATOR * Telephone Encounter - Debbie Ramos RN - 08/31/2021 8:26 AM CST I have called radiology about this quite a few times. They say they will call me back to let me know but they never call us back. RY SAW OPERATOR * Telephone Encounter - Debbie Ramos RN - 08/28/2021 2:40 PM CST Spoke with Nanci in radiology. She will call me back to let me know RY SAW OPERATOR * Telephone Encounter - Bj Cantu MD - 08/28/2021 2:21 PM ROTARY SAW OPERATOR Debbie, please as our radiologist to see if this patient still needs an MRI of his pancreas based onthe CT he had done on 01/16/21. He has had another CT done recently, but the pancreas looked fine. Let me know. Thanks! RY SAW OPERATOR documented in this encounter Plan of Treatment Upcoming Encounters Date Type Department Care Team (Late st Contact Info) Description 11/26/2024 1:45 PM CDT Office Visit [facility] - Family [facility] [address] [place] [address] Bj Cantu MD #[address] [address] Scheduled Orders Name Type Priority Associated Diagnoses Orde r Schedule MRI ABDOMEN W/WO CONTRAST Imaging Routine Lesion of pancreas Expected: 07/10/2022 (Approximate), Expires: 09/06/2022 documented as of this encounter Visit Diagnoses Diagnosis Lesion of pancreas- Primary Unspecified disease of pancreas documented in this encounter Additional Health Concerns Assessment Noted Time PHQ-9 Depression Total Score: 0 05/05/20 19 3:00 PM ROTARY SAW OPERATOR documented as of this encounter Care Teams Grain Elevator Agent Relationship Specialty Start Date End Date Bj Cantu MD #[address] [address] PCP - General Family Medicine 05/31/15 documented as of this encounter
--- OUTSIDE RECORDS SUMMARY | 2024-06-27 19:50 | XMS_ITS | Encounter Summary ---
Author Organization [facility] Care Team Providers Care Instrument Repair Supervisor Name Role Phone Bj Tatum MD Primary Care Provider Encounter Details Date Type Department Care Team (Latest Contact Info) Description 02/07/2021 Travel Social History Tobacco Use Types Packs/Day Years Used Date Smoking Tobacco: Former Cigarettes 1 21 0 07/17/1995 - 07/17/2016 Smokeless Tobacco: Never Alcohol Use Standard Drinks/Week Comments Yes 0 (1 standard drink = 0.6 oz [...] have Coronavirus / COVID-19? No / Unsure 02/07/2021 2:03 PM CDT documented as of this encounter Plan of Treatment Upcoming Encounters Date Type Department Care Team (Late st Contact Info) Description 11/26/2024 1:45 PM CDT Office Visit [facility] - Family [facility] #[address] [place] [id number] Bj Tatum MD #[address] [address] documented as of this encounter Visit Diagnoses Not on filedocumented in this encounter Additional Health Concerns Assessment Noted Time PHQ-9 Depression Total Score: 0 05/05/20 19 3:00 PM CAN STRIPER documented as of this encounter Care Teams Instrument Repair Supervisor Relationship Specialty Start Date End Date Bj Tatum MD #[address] [address] PCP - General Family Medicine 05/31/15 documented as of this encounter
--- OUTSIDE RECORDS SUMMARY | 2024-06-27 19:50 | XMS_ITS | Encounter Summary ---
Author Organization [facility] Address [address] [place] [address] Phone Care Team Providers Care Hogshead Hand Name Role Phone Bj Tatum MD Primary Care Provider [phone] Reason for Visit * Reason Comments Abdominal Pain Encounter Details Date Type Department Care Team (Late st Contact Info) Description 07/10/2021 8:51 AM BULL RIDER - 07/10/2021 12:40 PM BULL RIDER Emergency [facility] [address] [place] [id number] Roberto Reynoso MD [address] [place] [address] Nephrolithiasis Discharge Disposition: Discharged to home or Selfcare [...] have Coronavirus / COVID-19? No / Unsure 07/10/2021 8:47 AM BULL RIDER documented as of this encounter Last Filed Vital Signs Vital Sign Reading Time Taken Comments Blood Pressure 144/59 07/10/2021 11:30 AM BULL RIDER Pulse 66 07/10/2021 11:30 AM BULL RIDER Temperature 35.9 ??C (96.7 ??F) 07/10/2021 8:47 AM CS T Respiratory Rate 18 07/10/2021 12:32 PM BULL RIDER Oxygen Saturation 98% 07/10/2021 11:30 AM BULL RIDER Inhaled Oxygen Concentration - - Weight 109.3 kg (241 lb) 07/10/2021 8:47 AM BULL RIDER Height 185.4 cm (6' 1 ) 07/10/2021 8:47 AM BULL RIDER Body Mass Index 31.8 07/10/2021 8:47 AM BULL RIDER documented in this encounter Discharge Instructions * Discharge Instructions* Roberto Reynoso MD - 07/10/2021 12:08 PM BULL RIDER Return to the ER with any concerns. Take all medications as instructed. Follow- up with Urology as discussed. Her RIDER * Attachments The following attachments cannot be sent through Care Everywhere. * Kidney Stones (Chinese) * Renal Colic [id number] (Chinese) documented in this encounter Medications at Time of Discharge VITAMIN D PO Take by mouth daily. APPLE CIDER VINEGAR PO Take by mouth daily. 4 HYDROcodone-aceta minophen (NORCO) 5-325 MG Tablet Take 1-2 Tablets by mouth every 6 hours as needed for Moderate or more severe pain. 20 Tablet 01/16/2021 2 ibuprofen (MOTRIN) 800 MG Tablet Take 1 Tablet by mouth every 6 hours as needed for Fever. 20 Tablet 07/10/2021 2 ondansetron (ZOFRAN) 4 MG Tablet Take 1 Tablet by mouth every 8 hours as needed for Nausea - 1st line for up to 6 doses. 6 Tablet 07/10/2021 2 ondansetron (ZOFRAN-ODT) 4 MG TABLET DISPERSIBLE Take 1 Tablet by mouth every 8 hours as needed for Nausea - 1st line. 10 Tablet 01/16/2021 2 pantoprazole (PROTONIX) 40 MG Tablet Delayed ResponseIndicatio ns:Rectal bleeding Take 1 Tablet by mouth daily. 30 Tablet 01/16/2021 2 POTASSIUM CHLORIDE PO Take by mouth daily. 2 tamsulosin (FLOMAX) 0.4 MG Capsule Take 1 Capsule by mouth daily. 10 Capsule 07/10/2021 2 VITAMIN E PO Take by mouth daily. 4 documented as of this encounter ED Notes * Val Woo RN - 07/10/2021 12:32 PM CST Patient discharged. Discharge instructions and patient educational material reviewed with patient; questions and concerns addressed; patient verbalizes understanding, using teach back. Patient was given 3 prescriptions. Patient was informed no drinking alcohol, driving or operating heavy machinery while taking narcotics or muscle relaxants. Patient ambulatory out with steady gait with significantother. SL D/C'ed with Michael cath intact. No distress noted. RIDER * Val Woo RN - 07/10/2021 11:30 AM CST Pt resting quietly with eyes closed. Call light in reach. No questions/requests. RIDER * Val Woo RN - 07/10/2021 10:30 AM CST Pt updated on status and timeframe. No questions/requests. Call light in reach. RIDER * Val Woo RN - 07/10/2021 9:35 AM CST IV access established and labs drawn. Ns infusion started and Pt medicated per provider orders. Pt educated on intended effects and side effects of medication and verbalized understanding, able to provide teach back of education. NIBP and SpO2 monitors applied. Call light in reach. RIDER * Cher Bernabe RN - 07/10/2021 9:10 AM CST Patient to CT. RIDER * Roberto Reynoso MD - 07/10/2021 9:05 AM CST Chief Complaint Patient presents with ??? Abdominal Pain Patient is a 41-year-old black male who presents to the ER secondary to acute onset of right-sided flank pain and right lower quadrant abdominal pain. Onset of symptoms 2-3 hours prior to arrival. Has a history of renal colic and kidney stones in the past. Patient has no medical problems. Denies any diarrhea. Denies any fever. Does endorse nausea and vomiting multiple times this morning. Pain is 10/10 sharp no modifying factors. Has not seen another provider for these symptoms. Denies any hematuria. Endorses pain with urination starting this morning. Current Facility-Administered Medications Medication Dose Route Frequency Provider Last Rate Last Admin ??? 0.9 % sodium chloride solution Intravenous Continuous Roberto Reynoso MD ??? ketorolac (TORADOL) injection 30 mg 30 mg Intravenous Once Roberto Reynoso MD ??? ondansetron (ZOFRAN) injection 4 mg 4 mg Intravenous Once Roberto Reynoso MD Current Outpatient Medications Medication Sig Dispense Refill ??? APPLE CIDER VINEGAR PO Take by mouth daily. ??? HYDROcodone-acetaminophen (NORCO) 5-325 MG Tablet Take 1-2 Tablets by mouth every 6 hours as needed for Moderate or more severe pain. 20 Tablet 0 ??? ondansetron (ZOFRAN-ODT) 4 MG TABLET DISPERSIBLE Take 1 Tablet by mouth every 8 hours as neededfor Nausea - 1st line. 10 Tablet 0 ??? pantoprazole (PROTONIX) 40 MG Tablet Delayed Response Take 1 Tablet by mouth daily. 30 Tablet 0 ??? POTASSIUM CHLORIDE PO Take by mouth daily. ??? VITAMIN D PO Take by mouth daily. ??? VITAMIN E PO Take by mouth daily. No Known Allergies Past Medical History Positives Diagnosis Date ??? Polyp of colon Past Surgical History: Procedure Laterality Date ??? COLONOSCOPY ??? COLONOSCOPY N/A 03/03/2021 Procedure: COLONOSCOPY -TICS, SPASTIC COLON, HEMORRHOIDS; Surgeon: William Overton MD; Location:[facility]; Service: Gastroenterology ??? CYST REMOVAL October 2010 pilonidal cyst ??? CYST REMOVAL ??? OTHER SURGICAL HISTORY excision for perianal hidradenitis ??? UPPER GASTROINTESTINAL ENDOSCOPY N/A 03/03/2021 Procedure: EGD - SUPERFICIAL DUODENAL ULCER, ANTRAL BIOPSIES, HIATAL HERNIA; Surgeon: William Overton MD; Location: [facility]; Service: Gastroenterology Social History Socioeconomic History ??? Marital status: Single Spouse name: Not on file ??? Number of children: Not on file ??? Years of education: Not on file ??? Highest education level: Not on file Occupational History ??? Not on file Tobacco Use ??? Smoking status: Former Smoker Packs/day: 1.00 Years: 21.00 Pack years: 21.00 Quit date: 07/17/2016 Years since quittin.9 ??? Smokeless tobacco: Never Used Vaping Use ??? Vaping Use: Former Substance and Sexual Activity ??? Alcohol use: Not Currently Comment: 2-3 beer daily ??? Drug use: Yes Types: Marijuana Comment: Daily ??? Sexual activity: Yes Other Topics Concern ??? Not on file Social History Narrative ??? Not on file Social Determinants of Health Social determinant risk not applicable to this patient. BP 159/82 Pulse 72 Temp 96.7 ??F (35.9 ??C) (Tympanic) Resp 22 Ht 6' 1 (1.854 m) Wt 241 lb (109.3 kg) SpO2 100% BMI 31.80 kg/m?? Review of Systems All other systems reviewed and are negative. Physical Exam Vitals and nursing note reviewed. Constitutional: General: He is in acute distress. HENT: Mouth/Throat: Mouth: Mucous membranes are moist. Cardiovascular: Rate and Rhythm: Normal rate and regular rhythm. Heart sounds: Normal heart sounds. Pulmonary: Effort: Pulmonary effort is normal. Abdominal: Tenderness: There is right CVA tenderness. Comments: On examination there is right lower quadrant tenderness to palpation. Right-sided CVAT. There is voluntary guarding no rebound. Normal bowel sounds. No masses palpated. Skin: General: Skin is warm. Capillary Refill: Capillary refill takes less than 2 seconds. Neurological: Mental Status: He is alert. Psychiatric: Mood and Affect: Mood normal. Procedures Imaging Results CT ABDOMEN PELVIS W/O CONTRAST (No Result on File) Labs Reviewed COMPLETE BLOOD COUNT (CBC) WITH DIFF CMP (COMPREHENSIVE METABOLIC PANEL) URINALYSIS REFLEX IF INDICATED BY ABNORMAL RESULTS LACTIC ACID (LACTATE) LIPASE MDM Number of Diagnoses or Management Options Nephrolithiasis Renal colic on right side Diagnosis management comments: Results for orders placed or performed during the hospital encounterof 07/10/21 -CMP (Comprehensive Metabolic Panel): Result Value Ref Range SODIUM 138 136 - 144 mmol/L POTASSIUM 4.0 3.5 - 5.1 mmol/L CHLORIDE 102 100 - 110 mmol/L CO2, VENOUS 26 22 - 32 mmol/L ANION GAP 14.0 8.0 - 20.0 mmol/L GLUCOSE 150 (H) 70 - 99 mg/dL BUN 10 6 - 20 mg/dL CREATININE, BLOOD 1.16 0.80 - 1.30 mg/dL BUN/CREATININE RATIO 9 (L) 12 - 20 ratio TOTAL PROTEIN 7.9 6.0 - 8.3 g/dL ALBUMIN 4.6 3.5 - 5.2 g/dL A/G RATIO 1.4 1.0 - 2.0 CALCIUM 9.8 8.9 - 10.3 mg/dL T BILI <0.3 <=1.2 mg/dL SGOT (AST) 83 (H) <=40 U/L SGPT (ALT) 150 (H) <=41 U/L ALKALINE PHOSPHATASE 111 40 - 130 U/L GFR, EST. NONAFRICAN >60 >=60 GFR, EST. >60 >=60 -URINALYSIS REFLEX IF INDICATED BY ABNORMAL RESULTS: Result Value Ref Range SPECIFIC GRAVITY 1.010 1.003 - 1.030 URINE PH 7.0 5.0 - 9.0 WBC ESTERASE Negative Negative NITRITE Negative Negative PROTEIN, RANDOM URINE 15 mg/dL (A) Negative URINE GLUCOSE, QUAL Negative Negative URINE KETONES Negative Negative UROBILINOGEN Normal Normal mg/dL URINE BLOOD 150 /uL (A) Negative gabino/ul URINALYSIS COLOR Yellow URINALYSIS CLARITY Clear WBC (Urine) Negative Negative, 0-5 /hpf URINE RBC'S 51-150 (A) Negative, 0-2 /hpf EPITHELIAL CELLS Negative /lpf BACTERIA, URINE Negative Negative /hpf -Lactic Acid (Lactate) Serum: Result Value Ref Range LACTIC ACID 1.8 0.5 - 2.0 mmol/L -Lipase: Result Value Ref Range LIPASE 75.9 (H) 13 - 60 U/L -CBC with Auto Differential: Result Value Ref Range WBC 13.51 (H) 4.00 - 12.00 10(3)/mcL RBC 4.53 4.40 - 5.80 10(6)/mcL HEMOGLOBIN (HGB) 13.0 13.0 - 16.5 g/dL HEMATOCRIT (HCT) 38.5 38.0 - 50.0 % MCV 85.0 82.0 - 96.0 fL MCH 28.7 26.0 - 32.0 pg MCHC 33.8 31.0 - 36.0 g/dL PLATELET COUNT 323 140 - 440 10(3)/mcL RDW 13.2 11.8 - 15.5 % MPV 10.9 8.0 - 12.6 fL NEUTROPHILS 84.5 (H) 40.0 - 68.0 % LYMPHOCYTES 10.9 (L) 19.0 - 49.0 % MONOCYTES 4.4 3.0 - 13.0 % EOSINOPHILS 0.1 0.0 - 8.0 % BASOPHILS 0.1 0.0 - 1.0 % ABSOLUTE NEUTROPHILS 11.41 (H) 1.40 - 5.30 10(3)/mcL ABSOLUTE LYMPHOCYTES 1.47 0.90 - 3.30 10(3)/mcL ABSOLUTE MONOCYTES 0.59 0.10 - 0.90 10(3)/mcL ABSOLUTE EOSINOPHIL 0.02 0.00 - 0.50 10(3)/mcL ABSOLUTE BASOPHILS 0.02 0.00 - 0.10 10(3)/mcL NRBC PER 100 WBC 0 Coding Clinical Impression 1. Renal colic on right side 2. Nephrolithiasis ED Course as of Jul 11 629 Mon Jul 10, 2021 0950 IMPRESSION: ?? 1. Mild right hydronephrosis and hydroureter with perinephric stranding. This is due to a 0.3 cm calculus just to the right of midline favored most likely recently passed calculus, less likely calculus remaining lodged at the UVJ. 2. No other acute abnormality of the abdomen and pelvis. [JK] 1204 Patient endorses feeling much better following Toradol. Repeat abdominal examination is soft nonsurgical. Noted leukocytosis however this is most likely related to stress. Urinalysis unremarkable. Plan to discharge home with Flomax, Zofran, ibuprofen, and urologic follow-up. [JK] ED Course User Index [JK] Roberto Reynoso MD RIDER * Cher Bernabe RN - 07/10/2021 8:46 AM CST Patient to triage with c/o RLQ pain starting 2-3 hours [employer]. Patient reports similar pain in the past as he has a hx of kidney stones. Patient rocking and moaning in triage. RIDER documented in this encounter Plan of Treatment Upcoming Encounters Date Type Department Care Team (Late st Contact Info) Description 11/26/2024 1:45 PM CDT Office Visit [facility] [address] [place] [phone] Bj Tatum MD [address] [address] documented as of this encounter Procedures Procedure Name Priority Date/Time Associated Diagnosis Comments URINALYSIS REFLEX IF INDICATED BY ABNORMAL RESULTS STAT 07/10/2021 10:25 AM BULL RIDER EXTRA TUBES STAT 07/10/2021 9:21 AM BULL RIDER GOLD TOP TUBE STAT 07/10/2021 9:21 AM BULL RIDER LAVENDER TOP TUBE STAT 07/10/2021 9:2 1 AM BULL RIDER CBC WITH AUTO DIFFERENTIAL STAT 07/10/2021 9:21 AM BULL RIDER LIPASE STAT 07/10/2021 9:21 AM BULL RIDER LACTIC ACID (LACTATE) STAT 07/10/2021 9:21 AM BULL RIDER CMP (COMPREHENSIVE METABOLIC PANEL) STAT 07/10/2021 9:21 AM BULL RIDER COMPLETE BLOOD COUNT (CBC) WITH DIFF STAT 07/10/2021 9:[address] ABDOMEN PELVIS W/O CONTRAST STAT 07/10/2021 9:15 AM BULL RIDER documented in this encounter Results * (ABNORMAL) URINALYSIS REFLEX IF INDICATED BY ABNORMAL RESULTS (07/10/2021 10:25 AM BULL RIDER) SPECIFIC GRAVITY 1.010 1.003 - 1.030 07/10/2021 11:25 AM BULL RIDER [facility] URINE PH 7.0 5.0 - 9.0 07/10/2021 11:25 AM BULL RIDER [facility] WBC ESTERASE Negative Negative 07/10/2021 11:25 AM BULL RIDER [facility] NITRITE Negative Negative 07/10/2021 11:25 AM BULL RIDER [facility] PROTEIN, RANDOM URINE 15 mg/dL(A) Negative 07/10/2021 11:25 AM BULL RIDER [facility] URINE GLUCOSE, QUAL Negative Negative 07/10/2021 11:25 AM BULL RIDER [facility] URINE KETONES Negative Negative 07/10/2021 11:25 AM BULL RIDER [facility] UROBILINOGEN Normal Normal mg/dL 07/10/2021 11:25 AM BULL RIDER [facility] URINE BLOOD 150 /uL(A) Negative gabino/ul 07/10/2021 11:25 AM BULL RIDER [facility] URINALYSIS COLOR Yellow 07/10/19 11:25 AM BULL RIDER [facility] URINALYSIS CLARITY Clear 07/10/2021 11:25 AM BULL RIDER [facility] WBC (Urine) Negative Negative, 0-5 /hpf 07/10/2021 11:25 AM BULL RIDER [facility] URINE RBC'S 51-150(A) Negative, 0-2 /hpf 07/10/2021 11:25 AM BULL RIDER [facility] EPITHELIAL CELLS Negative /lpf 07/10/19 11:25 AM BULL RIDER [facility] BACTERIA, URINE Negative Negative /hpf 07/10/2021 11:25 AM BULL RIDER [facility] Urine URINE SPECIMEN / Unknown Non-Phlebotomy Collection / Unknown 07/10/2021 10:25 AM BULL RIDER 07/10/2021 10:40 AM BULL RIDER us Roberto Reynoso MD URINE ORDERABLES Kadi l Result Performing Organization Address [facility] Co de Phone Number [facility] [address] [place] [address] * Lavender Top Tube (07/10/2021 9:21 AM BULL RIDER) Blood No Phlebotomy Charged / Unknown 07/10/2021 9:21 AM BULL RIDER 07/10/2021 10:35 AM BULL RIDER us Roberto Reynoso MD HEMATOLOGY ORDERABLES Final Result Performing Organization Address [facility] Co de Phone Number [facility] [address] [place] [address] * Gold Top Tube (07/10/2021 9:21 AM BULL RIDER) Blood No Phlebotomy Charged / Unknown 07/10/2021 9:21 AM BULL RIDER 07/10/2021 10:35 AM BULL RIDER us Roberto Reynoso MD CHEMISTRY ORDERABLES Final Result Performing Organization Address City/[facility]/ZIP Co de Phone Number [facility] [address] [place] [address] * (ABNORMAL) CBC with Auto Differential (07/10/2021 9:21 AM [facility]) WBC 13.51(H) 4.00 - 12.00 10(3)/mcL 07/10/2021 9:55 AM [facility] RBC 4.53 4.40 - 5.80 10(6)/mcL 07/10/2021 9:55 AM [facility] HEMOGLOBIN (HGB) 13.0 13.0 - 16.5 g/dL 07/10/2021 9:55 AM [facility] HEMATOCRIT (HCT) 38.5 38.0 - 50.0 % 07/10/2021 9:55 AM [facility] MCV 85.0 82.0 - 96.0 fL 07/10/2021 9:55 AM [facility] MCH 28.7 26.0 - 32.0 pg 07/10/2021 9:55 AM [facility] MCHC 33.8 31.0 - 36.0 g/dL 07/10/2021 9:55 AM [facility] PLATELET COUNT 323 140 - 440 10(3)/[facility] 07/10/2021 9:55 AM [facility] RDW 13.2 11.8 - 15.5 % 07/10/2021 9:55 AM [facility] MPV 10.9 8.0 - 12.6 fL 07/10/2021 9:55 AM [facility] NEUTROPHILS 84.5(H) 40.0 - 68.0 % 07/10/2021 9:55 AM [facility] LYMPHOCYTES 10.9(L) 19.0 - 49.0 % 07/10/2021 9:55 AM [facility] MONOCYTES 4.4 3.0 - 13.0 % 07/10/2021 9:55 AM [facility] EOSINOPHILS 0.1 0.0 - 8.0 % 07/10/2021 9:55 AM [facility] BASOPHILS 0.1 0.0 - 1.0 % 07/10/2021 9:55 AM BULL RIDER [facility] ABSOLUTE NEUTROPHILS 11.41(H) 1.40 - 5.30 10(3)/[facility] 07/10/2021 9:55 AM BULL RIDER [facility] ABSOLUTE LYMPHOCYTES 1.47 0.90 - 3.30 10(3)/[facility] 07/10/2021 9:55 AM BULL RIDER [facility] ABSOLUTE MONOCYTES 0.59 0.10 - 0.90 10(3)/[facility] 07/10/2021 9:55 AM BULL RIDER [facility] ABSOLUTE EOSINOPHIL 0.02 0.00 - 0.50 10(3)/[facility] 07/10/2021 9:55 AM BULL RIDER [facility] ABSOLUTE BASOPHILS 0.02 0.00 - 0.10 10(3)/[facility] 07/10/2021 9:55 AM BULL RIDER [facility] NRBC PER 100 WBC 0 07/10/19 9:55 AM BULL RIDER [facility] Blood Venipuncture / Unknown 07/10/2021 9:21 AM BULL RIDER 07/10/2021 9:47 AM BULL RIDER us Roberto Reynoso MD HEMATOLOGY ORDERABLES Final Result Performing Organization Address City/[facility]/ZIP Co de Phone Number [facility] [address] [place] [address] * (ABNORMAL) Lipase (07/10/2021 9:21 AM BULL RIDER) LIPASE 75.9(H) 13 - 60 U/L 07/10/2021 10:18 AM BULL RIDER [facility] Blood Venipuncture / Unknown 07/10/2021 9:21 AM BULL RIDER 07/10/2021 9:47 AM BULL RIDER us Roberto Reynoso MD CHEMISTRY ORDERABLES Final Result Performing Organization Address City/[facility]/ZIP Co de Phone Number [facility] [address] [place] [address] * Lactic Acid (Lactate) Serum (07/10/2021 9:21 AM BULL RIDER) Pathologist [facility] LACTIC ACID 1.8 0.5 - 2.0 mmol/L 07/10/2021 10:14 AM [facility] Blood Venipuncture / Unknown 07/10/2021 9:21 AM BULL RIDER 07/10/2021 9:47 AM BULL RIDER us Roberto Reynoso MD CHEMISTRY ORDERABLES Final Result [facility] [address] [place] [address] * (ABNORMAL) CMP (Comprehensive Metabolic Panel) (07/10/2021 9:21 AM BULL RIDER) Pathologist [facility] SODIUM 138 136 - 144 mmol/L 07/10/2021 10:18 AM [facility] POTASSIUM 4.0 3.5 - 5.1 mmol/L 07/10/2021 10:18 AM [facility] CHLORIDE 102 100 - 110 mmol/L 07/10/2021 10:18 AM [facility] CO2, VENOUS 26 22 - 32 mmol/L 07/10/2021 10:18 AM [facility] ANION GAP 14.0 8.0 - 20.0 mmol/L 07/10/2021 10:18 AM [facility] GLUCOSE 150(H) 70 - 99 mg/dL 07/10/2021 10:18 AM [facility] BUN 10 6 - 20 mg/dL 07/10/2021 10:18 AM [facility] CREATININE, BLOOD 1.16 0.80 - 1.30 mg/dL 07/10/2021 10:18 AM [facility] BUN/CREATININE RATIO 9(L) 12 - 20 ratio 07/10/2021 10:18 AM [facility] TOTAL PROTEIN 7.9 6.0 - 8.3 g/dL 07/10/2021 10:18 AM [facility] ALBUMIN 4.6 3.5 - 5.2 g/dL 07/10/2021 10:18 AM [facility] Comment: The colormetric methods used for the determination of Albumin may lead to falsely elevated test results in patients suffering from renal failure or insufficiency due to interference with other proteins. A/G RATIO 1.4 1.0 - 2.0 07/10/2021 10:18 AM [facility] CALCIUM 9.8 8.9 - 10.3 mg/dL 07/10/2021 10:18 AM [facility] T BILI <0.3 <=1.2 mg/dL 07/10/2021 10:18 AM [facility] SGOT (AST) 83(H) <=40 U/L 07/10/2021 10:18 AM [facility] SGPT (ALT) 150(H) <=41 U/L 07/10/2021 10:18 AM [facility] ALKALINE PHOSPHATASE 111 40 - 130 U/L 07/10/2021 10:18 AM [facility] GFR, EST. NONAFRICAN >60 >=60 07/10/2021 10:18 AM [facility] GFR, EST. >60 >=60 022 10:18 AM [facility] Comment: Creatinine Clearance is the preferred criteria for selecting drug dose adjustments in renally impaired patients. ??The GFR is provided as additional pertinent clinical information. GFR is reported in mL/min/1.73 sq m. Blood Venipuncture / Unknown 07/10/2021 9:21 AM BULL RIDER 07/10/2021 9:47 AM BULL RIDER us Roberto Reynoso MD CHEMISTRY ORDERABLES Final Result [facility] [address] [place] [address] * CT ABDOMEN PELVIS W/O CONTRAST (07/10/2021 9:15 AM BULL RIDER) Anatomical Region Laterality Modality Abdomen N/A Computed Tomogra phy 07/10/2021 9:26 AM BULL RIDER Impressions 07/10/2021 9:29 AM BULL RIDER IMPRESSION: ?? 1. ?? Mild right hydronephrosis and hydroureter with perinephric stranding. ??This is due to a 0.3 cm calculus just to the right of midline favored most likely recently passed calculus, less likely calculus remaining lodged at the UVJ. 2. ?? No other acute abnormality of the abdomen and pelvis. Narrative 07/10/2021 9:29 AM BULL RIDER EXAM DESCRIPTION: ?? CT ABDOMEN PELVIS W/O CONTRAST REASON FOR STUDY: ?? Flank pain with kidney stones suspected MRI lower quadrant pain for 2-3 hours prior to arrival. TECHNIQUE: CT scan of the abdomen and pelvis performed without intravenous and ?? without ??oral contrast using helical scanning technique. Reconstructed coronal and sagittal MPR images reviewed. All images stored on PACS. ??Automated exposure control was used as a dose optimization technique for this examination. COMPARISON: ?? 01/16/2021. FINDINGS: The sensitivity for detection of visceral lesions is diminished without the use of intravenous contrast. LOWER CHEST: ?? Lung bases are predominantly clear. ??There is no pleural effusion. LIVER: ?? No focal hepatic lesions are seen. GALLBLADDER: ?? No gallstones or inflammatory change. BILE DUCTS: ?? No biliary ductal dilation. SPLEEN: ?? Spleen size is normal. ??There is no focal lesion. PANCREAS: ?? No pancreatic mass or inflammatory change. ADRENALS: ?? Normal KIDNEYS/URINARY TRACT: ?? Mild right hydronephrosis and hydroureter with right perinephric stranding. ??The right ureter is dilated throughout its course. ??Within the bladder just to the right of midline is a 0.3 cm calculus. ??This is favored to be a recently passed calculus, versus less likely a calculus remaining lodged in the right UVJ. ??No left renal or ureteral calculi. ??No left hydronephrosis or hydroureter. GI: ?? No evidence of bowel obstruction. ??The appendix is normal. ?? Stomach and duodenum are normal. PERITONEUM: ?? No ascites or free air. RETROPERITONEUM: ?? No retroperitoneal mass or lymphadenopathy. REPRODUCTIVE: ?? No significant abnormalities. VASCULATURE: ?? Abdominal aorta is nonaneurysmal. MUSCULOSKELETAL: ?? Bone windows demonstrate no acute or aggressive osseous abnormality. OTHER: ?? No other abnormality. THIS IS AN ELECTRONICALLY VERIFIED FINAL REPORT 07/10/2021 9:26 AM - Electronically signed by ??Arash Souza M.D. CH: CH D: ??07/10/2021 9:26 AM T: ??07/10/2021 9:26 AM Report ID: [id number] Reading Location: ??[id number] Procedure Note Arash Souza Jr., MD - 07/10/2021 EXAM DESCRIPTION: CT ABDOMEN PELVIS W/O CONTRAST REASON FOR STUDY: Flank pain with kidney stones suspected MRI lower quadrant pain for 2-3 hours prior to arrival. TECHNIQUE: CT scan of the abdomen and pelvis performed without intravenous and without oral contrast using helical scanning technique. Reconstructed coronal and sagittal MPR images reviewed. All images stored on PACS. Automated exposure control was used as a dose optimization technique for this examination. COMPARISON: 01/16/2021. FINDINGS: The sensitivity for detection of visceral lesions is diminished without the use of intravenous contrast. LOWER CHEST: Lung bases are predominantly clear. There is no pleural effusion. LIVER: No focal hepatic lesions are seen. GALLBLADDER: No gallstones or inflammatory change. BILE DUCTS: No biliary ductal dilation. SPLEEN: Spleen size is normal. There is no focal lesion. PANCREAS: No pancreatic mass or inflammatory change. ADRENALS: Normal KIDNEYS/URINARY TRACT: Mild right hydronephrosis and hydroureter with right perinephric stranding. The right ureter is dilated throughout its course. Within the bladder just to the right of midline is a 0.3 cm calculus. This is favored to be a recently passed calculus, versus less likely a calculus remaining lodged in the right UVJ. No left renal or ureteral calculi. No left hydronephrosis or hydroureter. GI: No evidence of bowel obstruction. The appendix is normal. Stomach and duodenum are normal. PERITONEUM: No ascites or free air. RETROPERITONEUM: No retroperitoneal mass or lymphadenopathy. REPRODUCTIVE: No significant abnormalities. VASCULATURE: Abdominal aorta is nonaneurysmal. MUSCULOSKELETAL: Bone windows demonstrate no acute or aggressive osseous abnormality. OTHER: No other abnormality. THIS IS AN ELECTRONICALLY VERIFIED FINAL REPORT 07/10/2021 9:26 AM - Electronically signed by Arash Souza M.D. CH: ASPEN Report ID: [id number] Reading Location: [id number] IMPRESSION: 1. Mild right hydronephrosis and hydroureter with perinephric stranding. This is due to a 0.3 cm calculus just to the right of midline favored most likely recently passed calculus, less likely calculus remaining lodged at the UVJ. 2. No other acute abnormality of the abdomen and pelvis. us Roberto Reynoso MD IMG CT ORDERABLES Fin al Result documented in this encounter Visit Diagnoses Diagnosis Renal colic on right side- Primary Renal colic Nephrolithiasis Calculus of kidney documented in this encounter Administered Medications Inactive Administered Medications - up to 3 most recent administrations Medication Order MAR Action Action Date Dose Rate Site 0.9 % sodium chloride solution at 999 mL/hr, Intravenous, CONTINUOUS, Starting on Sat07/10/21 at 0930, Until Sat07/10/21 at 1443 New Bag 07/10/2021 9:33 AM BULL RIDER 999 mL/hr ketorolac (TORADOL) injection 30 mg 30 mg, Intravenous, ONCE, 1 dose, On Sat07/10/21 at 0930 Given 07/10/2021 9:33 AM BULL RIDER 30 mg ondansetron (ZOFRAN) injection 4 mg 4 mg, Intravenous, ONCE, 1 dose, On Sat07/10/21 at 0930 Given 07/10/2021 9:33 AM BULL RIDER 4 mg documented in this encounter Active and Recently Administered Medications Times are shown in BULL RIDER. Scheduled Medication Order 07/08/2021 07/09/2021 07/10/2021 ketorolac (TORADOL) injection 30 mg (COMPLETED) 30 mg, Intravenous, ONCE, 1 dose, On Sat07/10/21 at 0930 0933 (Given - Provid er: Val Woo RN) ondansetron (ZOFRAN) injection 4 mg (COMPLETED) 4 mg, Intravenous, ONCE, 1 dose, On Sat07/10/21 at 0930 0933 (Given - Provid er: Val Woo RN) Continuous Medication Order 07/08/2021 07/09/2021 07/10/2021 0.9 % sodium chloride solution at 999 mL/hr, Intravenous, CONTINUOUS, Starting on Sat07/10/21 at 0930, Until Sat07/10/21 at 1443 0933 (New Bag - Prov ider: Val Woo RN)1033 (Stopped - Provider: Val Woo RN) documented in this encounter Additional Health Concerns Assessment Noted Time PHQ-9 Depression Total Score: 0 05/05/20 19 3:00 PM BULL RIDER documented as of this encounter Care Teams Hogshead Hand Relationship Specialty Start Date End Date Bj Tatum MD #[address] [address] PCP - General Family Medicine 05/31/15 documented as of this encounter
--- OUTSIDE RECORDS SUMMARY | 2024-06-27 19:50 | XMS_ITS | Encounter Summary ---
Author Organization [facility] Address [address] [place] [address] Phone Care Team Providers Care Water Purifier Operator Name Role Phone Bj Tatum MD Primary Care Provider [phone] Reason for Visit * Reason Onset Date Comments Need Order 01/25/2021 Encounter Details Date Type Department Care Team (Late st Contact Info) Description 01/25/2021 Telephone [facility] [place] [address] William Overton MD Need Order Social History Tobacco Use Types Packs/Day Years Used Date Smoking Tobacco: Former Cigarettes Q uit: 07/17/2016 Smokeless Tobacco: Never Alcohol Use Standard [...] have Coronavirus / COVID-19? No / Unsure 01/25/2021 10:14 AM CDT documented as of this encounter Miscellaneous Notes * Telephone Encounter - Saima Spicer RN - 01/26/2021 8:48 AM CDT Covid order pended for upcoming procedure. Please approve. * Telephone Encounter - Albina Xie - 01/25/2021 12:41 PM CDT Pt has egd and colonoscopy on 03-03-2021; he has not had his covid vaccine documented in this encounter Plan of Treatment Upcoming Encounters Date Type Department Care Team (Late st Contact Info) Description 11/26/2024 1:45 PM CDT [facility] [address] [place] [address] Bj Tatum MD #[address] [address] documented as of this encounter Results * SARS-COV-2 BY MOLECULAR (02/28/2021 12:50 PM CDT) SARSCOV2 NOT DETECTED (Referenc e Range for this test is Not Detected) [facility] ID NOW 02/28/2021 1:18 PM CDT [facility] Comment:This test was perfor med by a MOLECULAR, NON-PCR method Other NASOPHARYNGEAL STRUCTURE / Unknown Non-Phlebotomy Collection / Unknown 02/28/2021 12:50 PM CDT 02/28/2021 12:53 PM CDT [facility]ative [facility] - 02/28/2021 1:18 PM CDT This test has been authorized by the FDA under an Emergency Use Authorization (EUA) only. Negative results should be treated as presumptive and, if inconsistent with clinical signs and symptoms or necessary for patient management, the patient should be tested with an alternative molecular assay. Negative results do not preclude SARS-CoV-2 infection or any other respiratory pathogen. Additional information for Clinicians can be found at: https://www.fda.gov/media/505095/download Additional information for Patients can be found at: https://www.fda.gov/media/785726/download Sharon Mitchell PAC MICROBIOLOGY - GENERAL OR DERABLES Final Result [facility] [address] [place] [address] documented in this encounter Visit Diagnoses Diagnosis Preop testing- Primary Preoperative examination, unspecified documented in this encounter Additional Health Concerns Assessment Noted Time PHQ-9 Depression Total Score: 0 05/05/20 19 3:00 PM R D ENGINEER documented as of this encounter Care Teams Water Purifier Operator Relationship Specialty Start Date End Date Bj Tatum MD #[address] [address] PCP - General Family Medicine 05/31/15 documented as of this encounter
--- OUTSIDE RECORDS SUMMARY | 2024-06-27 19:50 | XMS_ITS | Encounter Summary ---
Author Organization [facility] [employer] Care Team Providers Care Auto Body Customizer Name Role Phone Bj Tatum MD Primary Care Provider Encounter Details Date Type Department Care Team (Latest Contact Info) Description 03/03/2021 Travel Social History Tobacco Use Types Packs/Day [...] have Coronavirus / COVID-19? No / Unsure 03/03/2021 9:05 AM CDT documented as of this encounter Plan of Treatment Upcoming Encounters Date Type Department Care Team (Late st Contact Info) Description 11/26/2024 1:45 PM CDT Office Visit [facility] - Family [facility] [address] [place] [address] Bj Tatum MD #[address] [address] documented as of this encounter Visit Diagnoses Not on filedocumented in this encounter Additional Health Concerns Assessment Noted Time PHQ-9 Depression Total Score: 0 05/05/20 19 3:00 PM JAZZ SINGER documented as of this encounter Care Teams Auto Body Customizer Relationship Specialty Start Date End Date Bj Tatum MD #2 [facility] [address] [place] [address] PCP - General Family Medicine 05/31/15 documented as of this encounter
--- OUTSIDE RECORDS SUMMARY | 2024-06-27 19:50 | XMS_ITS | Encounter Summary ---
Author Organization [facility] Address [address] [place] [address] Phone Care Team Providers Care Music Promoter Name Role Phone Bj Tatum MD Primary Care Provider [phone]- [phone] Encounter Details Date Type Department Care Team (Late st Contact Info) Description 07/25/2022 Telephone [facility] #2 [place] [address] Bj Tatum MD #[address] [address] Social History Tobacco Use Types Packs/Day Years [...] Exposure Response Date Recorded In the last 10 days, have yo u been in contact with someone who was confirmed or suspected to have Coronavirus/COVID-19? No / Unsure 07/13/2022 12:46 PM OPERATIONS AND MAINTENANCE MANAGER documented as of this encounter Miscellaneous Notes * Telephone Encounter - Bj Tatum MD - 07/26/2022 11:02 AM OPERATIONS AND MAINTENANCE MANAGER DONE. ATIONS AND MAINTENANCE MANAGER documented in this encounter Plan of Treatment Upcoming Encounters Date Type Department Care Team (Late st Contact Info) Description 11/26/2024 1:45 PM CDT Office Visit [facility] - Family Medicine [facility] [address] [place] [address] Bj Tatum MD #[address] [address] Scheduled Orders Name Type Priority Associated Diagnoses Orde r Schedule LIPID PANEL Lab Routine Hyperlipidemia, unspecified hyperlipidemia type Expected: 10/23/2022 (Approximate), Expires: 07/25/2023 documented as of this encounter Visit Diagnoses Diagnosis Hyperlipidemia, unspecified hyperlipidemia type- Primary documented in this encounter Additional Health Concerns Assessment Noted Time PHQ-9 Depression Total Score: 0 05/05/20 19 3:00 PM OPERATIONS AND MAINTENANCE MANAGER documented as of this encounter Care Teams Music Promoter Relationship Specialty Start Date End Date Bj Tatum MD #[address] [address] PCP - General Family Medicine 05/31/15 documented as of this encounter
--- OUTSIDE RECORDS SUMMARY | 2024-06-27 19:50 | XMS_ITS | Encounter Summary ---
Author Organization [facility] Address [address] [place] [address] Phone Care Team Providers Care Records Section Supervisor Name Role Phone Bj Tatum MD Primary Care Provider [phone] Reason for Visit * Auth/Cert Specialty Diagnoses / Procedures Referred By Ferny t Referred To Contact Diagnoses nausea-hematemesis Procedures EGD COLONOSCOPY Referral ID Status Reason Start Date Expiration Date Visits Re quested Visits Authorized [id number] 1 1 Encounter Details Date Type Department Care Team (Late st Contact Info) Description 03/03/2021 10:27 AM CDT [facility]est[facility] [address] [place] [address] Dorie Biggs APRN, CRNA Anesthesia Record Procedure Summary Procedure Name Responsible Anesthesiologist Anesthesia Start Time Anesthesia Stop Time EGD - SUPERFICIAL DUODENAL ULCER, ANTRAL BIOPSIES, HIATAL HERNIA Dorie Biggs APRN, CRNA 03/03/21 1027 03/03/21 1119 Events Date Time Event Comment 03/03/2021 1026 1027 An Start 1028 An Start Data 1028 ANASSESSCMPLT 1028 Start Supplemental O2 1028 Anesthesia Ready 1116 Stop Supplemental O2 1116 Stop Data Collection 1116 Transort to Postop 1119 Handoff to RN I completed my SBAR handoff to the receiving nurse. Last vitals BP: (!) 144/92 Temp: 37 ??C (98.6 ??F) Pulse: 72 Resp: 14 SpO2: 100 % 1119 An Stop Last vitals: BP : 115/55 Temp: 37 ??C (98.6 ??F) Pulse: 75 Resp: 13 SpO2: 95 % Meds Name Total propofol 10 mg/mL 1,114,860 mcg lidocaine 1 % 100 mg ondansetron (ZOFRAN) injection 4 mg 4 mg glucagon injection 1 mg 1 mg lactated ringers infusion 1,200 mL * Agents Name Inspired CO2 (mmHg) ETCO2 (mmHg) * Blood No blood administrations on file. Lines, Drains, and Airways Type Details Placement Removal RETIRED Peripheral IV Line - Single Lumen 03/03/21; 930; metacarpal vein (top of hand), right; 22 gauge; 03/03/21; 1136 03/03/21 0931 by Catalina Gregory RN 03/03/21 113 by Catalina Gregory RN documented in this encounter Social History Tobacco Use Types Packs/Day Years [...] AM CDT documented as of this encounter OR Notes * Anesthesia Postprocedure Evaluation - Dorie Biggs APN, INWARD TOLL OPERATOR - 03/03/2021 11:57 AM CDT Patient: Zachary Capps Procedure Summary Date: 03/03/21 Room / Location: [facility] / [facility] MA[facility] Anesthesia Start: 1027 Anesthesia Stop: 1119 Procedures: EGD - SUPERFICIAL DUODENAL ULCER, ANTRAL BIOPSIES, HIATAL HERNIA (N/A ) COLONOSCOPY -TICS, SPASTIC COLON, HEMORRHOIDS (N/A ) Diagnosis: (EGD - SUPERFICIAL DUODENAL ULCER, ANTRAL BIOPSIES, HIATAL HERNIA COLONOSCOPY -TICS, SPASTIC COLON, HEMORRHOIDS) Surgeons: William Overton MD Responsible Provider: Dorie Bigsg APN, CRNA Anesthesia Type: MAC ASA Status: 2 Anesthesia Type: MAC Last vitals Vitals Value Taken Time BP 135/87 03/03/21 1148 Temp 37 ??C (98.6 ??F) 03/03/21 1148 Pulse 75 03/03/21 1148 Resp 17 03/03/21 1148 SpO2 100 % 03/03/21 1148 Pain score: 0 Pain management: adequate Patient location during evaluation: GI Lab Patient participation: Fully recovered to participate Cardiovascular status: acceptable Respiratory status: acceptable Hydration status: acceptable Anesthetic complications: no Nausea and Vomiting: none * Anesthesia Preprocedure Evaluation - Dorie Biggs APN, CRNA - 03/03/2021 10:24 AM CDT Anesthesia Evaluation Procedure Information Date/Time: 03/03/21 1000 Procedures: EGD (N/A ) COLONOSCOPY (N/A ) Location: [facility] Surgeons: William Overton MD Patient summary reviewed and Nursing notes reviewed No history of anesthetic complications No family history of anesthesia reaction Allergies: No Known Allergies Patient allergies reviewed. Medications: Current Facility-Administered Medications: ??? lactated ringers infusion, , Intravenous, Continuous, William Overton MD Medications Prior to Admission: APPLE CIDER VINEGAR PO, Take by mouth daily., Disp: , Rfl: HYDROcodone-acetaminophen (NORCO) 5-325 MG Tablet, Take 1-2 Tablets by mouth every 6 hours as needed for Moderate or more severe pain., Disp: 20 Tablet, Rfl: 0 ondansetron (ZOFRAN-ODT) 4 MG TABLET DISPERSIBLE, Take 1 Tablet by mouth every 8 hours as needed for Nausea - 1st line., Disp: 10 Tablet, Rfl: 0 pantoprazole (PROTONIX) 40 MG Tablet Delayed Response, Take 1 Tablet by mouth daily., Disp: 30 Tablet, Rfl: 0 POTASSIUM CHLORIDE PO, Take by mouth daily., Disp: , Rfl: VITAMIN D PO, Take by mouth daily., Disp: , Rfl: VITAMIN E PO, Take by mouth daily., Disp: , Rfl: Patient medications reviewed. Airway Mallampati: I TM distance: >3 FB Neck ROM: full Dental - normal exam Pulmonary - normal exam (+) tobacco use Cardiovascular - negative ROS and normal exam Rhythm: regular Rate: normal Neuro/Psych - negative ROS GI/Hepatic/Renal - negative ROS Endo/Other - negative ROS Risks, benefits, alternatives discussed with:patient. Anesthesia Plan ASA 2 MAC intravenous induction documented in this encounter Plan of Treatment Upcoming Encounters Date Type Department Care Team (Late st Contact Info) Description 11/26/2024 1:45 PM CDT [facility] [address] [place] [address] Bj Tatum MD #[address] [address] documented as of this encounter Visit Diagnoses Not on filedocumented in this encounter Administered Medications Inactive Administered Medications - up to 3 most recent administrations Medication Order MAR Action Action Date Dose Rate Site glucagon injection SOLR Intravenous, ONCE (in OR), Starting on Sat03/03/21 at 1106, Until Sat03/03/21 at 1119 Given 03/03/2021 11:10 AM CDT 0.5 mg Given 03/03/2021 11:06 AM CDT 0.5 mg lactated ringers infusion at 10 mL/hr, Intravenous, CONTINUOUS, Starting on Sat03/03/21 at 1000, Until Sat03/03/21 at 1413 New Bag 03/03/2021 10:28 AM CDT lidocaine 1 % injection Intravenous, ONCE (in OR), Starting on Sat03/03/21 at 1042, Until Sat03/03/21 at 1119 Given 03/03/2021 10:42 AM CDT 100 mg ondansetron (ZOFRAN) injection 4 mg 4 mg, Intravenous, EVERY 12 HOURS PRN, Starting on Sat03/03/21 at 1027, Until Sat03/03/21 at 1413, Nausea - 1st line, First Line Antiemetic, PACU (I & II) Given 03/03/2021 10:53 AM CDT 4 mg propofol (DIPRIVAN) injection Intravenous, CONTINUOUS (in OR), Starting on Sat03/03/21 at 1042, Until Sat03/03/21 at 1119 Rate Change 03/03/2021 11:06 AM CDT 200 mcg/kg/min 131.16 mL/hr New Bag 03/03/2021 10:42 AM CDT 350 mcg/kg/min 229.53 m L/hr documented in this encounter Additional Health Concerns Assessment Noted Time PHQ-9 Depression Total Score: 0 05/05/20 19 3:00 PM SCIENCE INSTRUCTOR documented as of this encounter Care Teams Records Section Supervisor Relationship Specialty Start Date End Date Bj Tatum MD #[address] [address] PCP - General Family Medicine 05/31/15 documented as of this encounter
--- OUTSIDE RECORDS SUMMARY | 2024-06-27 19:50 | XMS_ITS | Encounter Summary ---
Author Organization [facility] [email or web address] Care Team Providers Care Notched Blade Loader Name Role Phone Bj Tatum MD Primary Care Provider [phone] Encounter Details Date Type Department Care Team (Latest Contact Info) Description 01/25/2021 Travel Social History Tobacco Use Types Packs/Day [...] Description 11/26/2024 1:45 PM CDT Office Visit [facility] - Family [facility] #2 [place] [address] Bj Tatum MD #[address] [address] documented as of this encounter Visit Diagnoses Not on filedocumented in this encounter Additional Health Concerns Assessment Noted Time PHQ-9 Depression Total Score: 0 05/05/20 19 3:00 PM CUSTOMER SUPPORT ASSOCIATE documented as of this encounter Care Teams Notched Blade Loader Relationship Specialty Start Date End Date Bj Tatum MD #2 [place] [address] PCP - General Family Medicine 05/31/15 documented as of this encounter
--- OUTSIDE RECORDS SUMMARY | 2024-06-27 19:50 | XMS_ITS | Encounter Summary ---
Author Organization [facility] Address [address] [place] [place] [address] Phone Care Team Providers Care Sheriff Name Role Phone Bj Tatum MD Primary Care Provider [phone] Reason for Visit * Reason Onset Date Comments Labs Only 10/18/2023 Encounter Details Date Type Department Care Team (Late st Contact Info) Description 10/18/2023 Telephone [facility] [address] [place] [address] Bj Tatum MD #[address] [address] Labs Only Social History Tobacco Use Types Packs/Day Years [...] encounter Miscellaneous Notes * Telephone Encounter - Jennyfer Gutierrez RN - 10/22/2023 9:20 AM CDT Called and spoke with patient to let him know all labs will be ordered during appointment. Thanks! Verbalizes understanding. * Telephone Encounter - Bj Tatum MD - 10/18/2023 10:07 PM CDT Let him know all labs will be ordered during appointment time. Thanks! * Telephone Encounter - Doretha Robles - 10/18/2023 11:39 AM CDT C: Zachary is requesting routine labs to be placed on the chart so he can get them drawn prior to his annual. Please call Zachary (relationship to patient Self) back regarding above referenced patient. Patient's Provider is Bj Tatum MD . documented in this encounter Plan of Treatment Upcoming Encounters Date Type Department Care Team (Late st Contact Info) Description 11/26/2024 1:45 PM CDT Office Visit [facility] #2 [place] [address] Bj Tatum MD #[address] [address] documented as of this encounter Visit Diagnoses Not on filedocumented in this encounter Additional Health Concerns Assessment Noted Time PHQ-9 Depression Total Score: 0 05/05/20 19 3:00 PM VP STRATEGIC PARTNERSHIPS documented as of this encounter Care Teams Sheriff Relationship Specialty Start Date End Date Bj Tatum MD #[address] [address] PCP - General Family Medicine 05/31/15 documented as of this encounter
--- OUTSIDE RECORDS SUMMARY | 2024-06-27 19:50 | XMS_ITS | Encounter Summary ---
Author Organization [facility] Address [address] [place] [address] Phone Care Team Providers Care Fixture Maker Name Role Phone Bj Tatum MD Primary Care Provider [phone] Encounter Details Date Type Department Care Team (Late st Contact Info) Description 07/18/2022 Telephone [facility] #2 [place] [address] Bj Tatum MD #[address] [address] Social History Tobacco Use Types Packs/Day Years [...] Coronavirus/COVID-19? No / Unsure 07/13/2022 12:46 PM OWNER OPERATOR documented as of this encounter Miscellaneous Notes * Telephone Encounter - Karolina Aquino RMA - 07/18/2022 7:59 AM OWNER OPERATOR Mailed letter. R OPERATOR documented in this encounter Plan of Treatment Upcoming Encounters Date Type Department Care Team (Late st Contact Info) Description 11/26/2024 1:45 PM CDT Office Visit [facility] - [facility] #[address] [place] [address] Bj Tatum MD #[address] [address] documented as of this encounter Visit Diagnoses Not on filedocumented in this encounter Additional Health Concerns Assessment Noted Time PHQ-9 Depression Total Score: 0 05/05/20 19 3:00 PM OWNER OPERATOR documented as of this encounter Care Teams Fixture Maker Relationship Specialty Start Date End Date Bj Tatum MD #[address] [address] PCP - General Family Medicine 05/31/15 documented as of this encounter
--- OUTSIDE RECORDS SUMMARY | 2024-06-27 19:50 | XMS_ITS | Encounter Summary ---
Author Organization [facility] Address [address] [place] [address] Phone Care Team Providers Care Chrome Cleaner Name Role Phone Bj Tatum MD Primary Care Provider [phone] Reason for Referral * Consult, Test & Initiate Treatment (Less Than 2 Weeks) - Closed Specialty Diagnoses / Procedures Referred By Contportia t Referred To Contact Diagnoses Adult acne Bj Tatum MD [address] [address] Phone: tel: fax: Praveen Pan MD [address] [place] [address] [place] [id number] Phone: tel: fax: Referral ID Status Reason Start Date Expiration Date Visits Re quested Visits Authorized [id number] Closed 08/28/2021 1 1 Scheduling Instructions Zachary is being referred to Dr. Praveen Pan or other specialist in patient's insurance network for facial acne. See below for Zachary's current medications, allergies and problem list. CURRENT MEDS: Current Outpatient Medications: APPLE CIDER VINEGAR PO, Take by mouth daily., Disp: , Rfl: HYDROcodone-acetaminophen (NORCO) 5-325 MG Tablet, Take 1-2 Tablets by mouth every 6 hours as needed for Moderate or more severe pain., Disp: 20 Tablet, Rfl: 0 ibuprofen (MOTRIN) 800 MG Tablet, Take 1 Tablet by mouth every 6 hours as needed for Fever., Disp: 20 Tablet, Rfl: 0 ondansetron (ZOFRAN) 4 MG Tablet, Take 1 Tablet by mouth every 8 hours as needed for Nausea - 1st line for up to 6 doses., Disp: 6 Tablet, Rfl: 0 ondansetron (ZOFRAN-ODT) 4 MG TABLET DISPERSIBLE, Take 1 Tablet by mouth every 8 hours as needed for Nausea - 1st line., Disp: 10 Tablet, Rfl: 0 pantoprazole (PROTONIX) 40 MG Tablet Delayed Response, Take 1 Tablet by mouth daily., Disp: 30 Tablet, Rfl: 0 POTASSIUM CHLORIDE PO, Take by mouth daily., Disp: , Rfl: tamsulosin (FLOMAX) 0.4 MG Capsule, Take 1 Capsule by mouth daily., Disp: 10 Capsule, Rfl: 0 VITAMIN D PO, Take by mouth daily., Disp: , Rfl: VITAMIN E PO, Take by mouth daily., Disp: , Rfl: No current facility-administered medications for this visit. ALLERGIES: No Known Allergies PROBLEM LIST: Patient Active Problem List: Hidradenitis suppurativa Rectal bleeding Family history of colon cancer Ex-smoker Elevated liver enzymes Hematuria History of substance abuse (HCC) Hyperglycemia Hepatic steatosis VERY ENGINEER Reason for Visit * Reason Comments Follow-up Patient is here toda y for a general follow up. Encounter Details Date Type Department Care Team (Late st Contact Info) Description 08/28/2021 1:45 PM DELIVERY ENGINEER Office Visit [facility] - Family Medicine [facility] [address] [place] [address] Bj Tatum MD #[address] [address] Adult acne (Primary Dx); Lesion of pancreas; Obesity (BMI 30-39.9); Hyperglycemia; Leukocytosis, unspecified type; Screening for prostate cancer; Elevated liver enzymes; Vitamin D deficiency Discharge Disposition: Discharged to home or Selfcare Social History Tobacco Use Types Packs/Day Years Used Date Smoking Tobacco: Former Cigarettes 1 21 0 07/17/1995 - 07/17/2016 Smokeless Tobacco: Never Tobacco Cessation:Counseling Given: Yes Alcohol Use Standard Drinks/Week Comments Not Currently [...] COVID-19? No / Unsure 08/28/2021 1:44 PM DELIVERY ENGINEER documented as of this encounter Last Filed Vital Signs Vital Sign Reading Time Taken Comments Blood Pressure 120/68 08/28/2021 1:51 PM DELIVERY ENGINEER Pulse 82 08/28/2021 1:51 PM DELIVERY ENGINEER Temperature 36.7 ??C (98 ??F) 08/28/2021 1:51 PM DELIVERY ENGINEER Respiratory Rate 14 08/28/2021 1:51 PM DELIVERY ENGINEER Oxygen Saturation 99% 08/28/2021 1:51 PM DELIVERY ENGINEER Inhaled Oxygen Concentration - - Weight 110.8 kg (244 lb 4.8 oz) 08/28/2021 1:51 PM DELIVERY ENGINEER Height 185.4 cm (6' 1 ) 08/28/2021 1:51 PM DELIVERY ENGINEER Body Mass Index 32.23 08/28/2021 1:51 PM DELIVERY ENGINEER documented in this encounter Patient Instructions * Patient Instructions* Bj Tatum MD - 08/28/2021 1:45 PM DELIVERY ENGINEER 1. See Dr. Praveen Pan / Full Charge Bookkeeper for the facial acne. 2. Diet/exercise/weight loss. 3. Please complete survey if you receive one. 4. Diet/exercise/weight loss. 5. Fast 10 hours for labs. VERY ENGINEER VERY ENGINEER VERY ENGINEER documented in this encounter Progress Notes * Kathy Hester CMA - 08/28/2021 1:45 PM CST Zachary Capps is a 41 y.o. male with current BMI: Body mass index is 32.23 kg/m??. Interventions discussed including: encourage daily physical activity and well- balanced diet. VERY ENGINEER * Kathy Hester CMA - 08/28/2021 1:45 PM CST Zachary Capps, 41 y.o., male is here for Follow-up (Patient is here today for a general follow up.) Medication Refills: Patient reports/denies need for medication refills. Orders Pended: no Requested Prescriptions No prescriptions requested or ordered in this encounter Home Medications Medication Sig Start Date End Date Taking? Authorizing Provider APPLE CIDER VINEGAR PO Take by mouth daily. Yes Briseyda Reid MD HYDROcodone-acetaminophen (NORCO) 5-325 MG Tablet Take 1-2 Tablets by mouth every 6 hours as neededfor Moderate or more severe pain. 01/16/21 Yes Jay Ellis MD ibuprofen (MOTRIN) 800 MG Tablet Take 1 Tablet by mouth every 6 hours as needed for Fever. 07/10/21 Yes Roberto Reynoso MD ondansetron (ZOFRAN) 4 MG Tablet Take 1 Tablet by mouth every 8 hours as needed for Nausea - 1st line for up to 6 doses. 07/10/21 Yes Roberto Reynoso MD ondansetron (ZOFRAN-ODT) 4 MG TABLET DISPERSIBLE Take 1 Tablet by mouth every 8 hours as needed forNausea - 1st line. 01/16/21 Yes Jay Ellis MD pantoprazole (PROTONIX) 40 MG Tablet Delayed Response Take 1 Tablet by mouth daily. 01/16/21 Yes Jay Ellis MD POTASSIUM CHLORIDE PO Take by mouth daily. Yes Briseyda Reid MD tamsulosin (FLOMAX) 0.4 MG Capsule Take 1 Capsule by mouth daily. 07/10/21 Yes Roberto Reynoso MD VITAMIN D PO Take by mouth daily. Yes ProviderBriseyda MD VITAMIN E PO Take by mouth daily. Yes Provider, MD Briseyda There are no discontinued medications. I have reviewed the home medication list with the patient and have reconciled discrepancies. The list is accurate to the best of my knowledge. Smoking Status: Social History Tobacco Use ??? Smoking status: Former Smoker Packs/day: 1.00 Years: 21.00 Pack years: 21.00 Quit date: 07/17/2016 Years since quittin.1 ??? Smokeless tobacco: Never Used Vaping Use ??? Vaping Use: Former Substance Use Topics ??? Alcohol use: Not Currently Comment: 2-3 beer daily ??? Drug use: Yes Types: Marijuana Comment: Daily Smoking Cessation Counseling Given: yes Health Care Maintenance: Health Maintenance Due Topic Date Due ??? SARS-COV-2 Immunization (1) Never done ??? Influenza Immunization (1) Never done Orders Pended: no The following BPA's have been addressed with the patient today: BMI VERY ENGINEER * Bj Tatum MD - 08/28/2021 1:45 PM CST CHIEF COMPLAINT: Adult acne. SUBJECTIVE: Patient is here today concerned about acne on his face. He has had this for years. It has been a long time since he has been to a car chaser and is requesting a cream for it. He did have a pancreatic lesion that was noted on CT back in December of 2020. He was seen in the ER for this. Followup CT done last month did not show any pancreatic lesion. He is due for a PSA. His white blood count was elevated last month with a white count of 13.51. His weight is in the obese range. BMI is 32.23. I have reviewed all the systems. They are negative except as mentioned in HPI. OBJECTIVE: VITAL SIGNS: Blood pressure 120/68, pulse 82 temperature 98, respirations 14, weight 244. GENERAL: Patient is talkative, cooperative and appropriately dressed. CHEST: Clear to auscultation bilaterally. No wheezing. HEART: S1, S2, no murmurs. NECK: No carotid bruits auscultated. FACE: He does have acne. ABDOMEN: Obese abdominal habitus. ASSESSMENT/PLAN: 1. Acne. I will refer her to Dr. Praveen Pan/Dermatology in [address]. 2. Obesity. I encouraged diet, exercise and weight loss. 3. Pancreatic lesion. Will put a message in to our local Radiologist to see if he needs to have an MRI of the pancreas done, given that the followup CT did not show any active pancreatic lesion. 4. Leukocytosis. Will get a CBC. 5. Screening for prostate cancer. Will get a PSA. 6. Elevated LFTs. I will recheck this. 7. This patient is to follow up in 3 months. IJN: [id number] VERY ENGINEER VERY ENGINEER documented in this encounter Plan of Treatment Upcoming Encounters Date Type Department Care Team (Late st Contact Info) Description 11/26/2024 1:45 PM CDT [facility] [address]2 [place] [address] Bj Tatum MD #[address] [address] Scheduled Referrals Name Type Priority Associated Diagnoses Order Schedule EXTERNAL DERMATOLOGY REFERRAL Outpatient Referral Less Than 2 weeks Adult acne Expected: 08/28/2021 (Approximate), Expires: 08/28/2022 documented as of this encounter Results * VITAMIN D, 25 HYDROXY TOTAL (07/13/2022 12:57 PM DELIVERY ENGINEER) VITAMIN D, 25 HYDROX 53 >=30 ng/mL 07/13/2022 3:00 PM DELIVERY ENGINEER [facility] Blood Venipuncture / Unknown 07/13/2022 12:57 PM DELIVERY ENGINEER 07/13/2022 2:09 PM DELIVERY ENGINEER Narrative [facility] - 07/13/2022 3:00 PM DELIVERY ENGINEER Published reference ranges for Vitamin D vary depending on time and place and method of testing, and on patient's age, sex, ethnicity and levels of other measured analytes such as parathormone, calcium and phosphorus. ??The result should be evaluated in conjunction with clinical findings and suspicions. [place] of [employer] and Endocrine Clinical Practice Guidelines: Status Vitamin D levels (ng/mL) Deficient <=20 At risk of inadequacy 21-29 Sufficient 30-100 Centers of Disease Control and Prevention Guidelines: Status Vitamin D levels (ng/mL) Deficient <13 At risk of inadequacy 13-19 Sufficient 20-50 Possibly harmful >50 References: [place] [employer], 2010 Dietary reference intakes for calcium and vitamin D. [place]: ??The National Academies Press. Jovani M, Valarie N, Calderon BETTENCOURT, et al., Evaluation, treatment, and prevention of Vitamin D deficiency: an Endocrinology Clinical Practice Guideline. JCEM 2011 96: 7 6317-1041. Favian A, Romeo C, Praneeth Helton, et al., Vitamin D Status: ??[place], 2000- 6, [facility] data brief, no. 59, MD [place]: ??National Center for Health Statistics. 2010. Result [facility] Bj Tatum MD CHEMISTRY ORDERABLES Final Result [facility] [address] [place] [address] * (ABNORMAL) VITAMIN B12 (07/13/2022 12:57 PM DELIVERY ENGINEER) VITAMIN B12 1,018(H) 243 - 894 pg/mL 07/13/2022 3:00 PM DELIVERY ENGINEER [email or web address] Blood Venipuncture / Unknown 07/13/2022 12:57 PM DELIVERY ENGINEER 07/13/2022 2:09 PM DELIVERY ENGINEER Bj Tatum MD CHEMISTRY ORDERABLES Final Result Performing Organization Address City/[facility]/ZIP Co de Phone Number [facility] [address] [place] [address] * THYROID STIMULATING HORMONE (TSH) (07/13/2022 12:57 PM DELIVERY ENGINEER) Pathologist [facility] TSH 2.160 0.270 - 4.200 mIU/L 07/13/2022 2:49 PM DELIVERY ENGINEER [email or web address] Blood Venipuncture / Unknown 07/13/2022 12:57 PM DELIVERY ENGINEER 07/13/2022 2:08 PM DELIVERY ENGINEER Bj Tatum MD CHEMISTRY ORDERABLES Final Result [facility] [address]1 [facility] [place] [address] * (ABNORMAL) LIPID PANEL (07/13/2022 12:57 PM DELIVERY ENGINEER) CHOLESTEROL 210(H) <=200 mg/dL 07/13/2022 3:00 PM DELIVERY ENGINEER [facility] TRIGLYCERIDES 89 <150 mg/dL 07/13/2022 3:00 PM DELIVERY ENGINEER [facility] HDL CHOLESTEROL 49.4 >40 mg/dL 3:00 PM [facility] LDL 143(H) 5 - 130 mg/dL 07/13/2022 3:00 PM DELIVERY ENGINEER [facility] VLDL 18 5 - 55 mg/dL 07/13/2022 3:00 PM [facility] CHOL/HDL RATIO 4.3 0.0 - 4.4 07/13/2022 3:00 PM [facility] NON-HDL CHOLESTEROL 160.6(H) <130 mg/dL 07/13/2022 3:00 PM DELIVERY ENGINEER [facility] IS THE PATIENT REQUIRED TO BE FASTING? Yes 07/13/2022 3:00 PM [facility] HAS THE PATIENT BEEN FASTING? Yes 07/13/2022 3:00 PM [facility] Blood Venipuncture / Unknown 07/13/2022 12:57 PM DELIVERY ENGINEER 07/13/2022 2:08 PM DELIVERY ENGINEER Bj Tatum MD CHEMISTRY ORDERABLES Final Result Performing Organization Address [facility]/ZIP Co de Phone Number [facility] [address] [place] [address] * HEPATIC FUNCTION PANEL (07/13/2022 12:57 PM DELIVERY ENGINEER) T BILI 0.4 <=1.2 mg/dL 07/13/2022 3:00 PM DELIVERY ENGINEER [facility] [[email or web address]] LAB BILIRUBIN,DIRECT <0.3 <=0.3 mg/dL 07/13/2022 3:00 PM DELIVERY ENGINEER [facility] [[email or web address] LAB ALKALINE PHOSPHATASE 83 40 - 130 U/L 07/13/2022 3:00 PM DELIVERY ENGINEER [facility] [[email or web address] LAB SGOT (AST) 28 <=40 U/L 07/13/2022 3:00 PM DELIVERY ENGINEER [facility] [[email or web address] LAB SGPT (ALT) 41 <=41 U/L 07/13/2022 3:00 PM DELIVERY ENGINEER [facility] TOTAL PROTEIN 8.3 6.0 - 8.3 g/dL 07/13/2022 3:00 PM DELIVERY ENGINEER [facility] ALBUMIN 4.9 3.5 - 5.2 g/dL 07/13/2022 3:00 PM DELIVERY ENGINEER [facility] Comment: The colormetric methods used for the determination of Albumin may lead to falsely elevated test results in patients suffering from renal failure or insufficiency due to interference with other proteins. Blood Venipuncture / Unknown 07/13/2022 12:57 PM DELIVERY ENGINEER 07/13/2022 2:08 PM DELIVERY ENGINEER Bj Tatum MD CHEMISTRY ORDERABLES Final Result Performing Organization Address [facility] Co de Phone Number [facility] [address] [place] [address] * HEPATITIS PANEL ACUTE (AHP) (07/13/2022 12:57 PM DELIVERY ENGINEER) HEPATITIS A IGM ANTIBODY NON DETECTED NON DETECTED [facility] ARCH [id number] 07/13/2022 9:24 PM DELIVERY ENGINEER [facility] Comment: IGM Antibodies to HAV not detected. ??Does not exclude early acute or recovered HAV infection. HEP B CORE AB (IGM) NON DETECTED NON DETECTED [place] [id number] 07/13/2022 9:24 PM DELIVERY ENGINEER [facility] Comment:IGM anti-HBC not det ected. Does not exclude the possibility of exposure to or infection with HBV. HEPATITIS B SURFACE ANTIGEN NON DETECTED NON DETECTED [place] [id number] 07/13/2022 9:24 PM DELIVERY ENGINEER [facility] Comment:A nonreactive test r esult does not exclude the possibility of exposure to or infection with Hepatitis B virus. A nonreactive test result in individuals with prior exposure to hepatitis B may be due to antigen levels below the detection limit of this assay or lack of antigen reactivity to the antibodies in this assay. hepatitis C antibody 0.11 <1 S/CO [place] [id number] 07/13/2022 9:24 PM DELIVERY ENGINEER [facility] Comment: Signal/Cutoff ratio ??< 0.79 is Nondetected Signal/Cutoff ratio 0.80-0.99 is Grayzone Signal/Cutoff ratio > 0.99 is Detected Supplemental assays are recommended if signal/cutoff ratio is >/=1.00. ??Signal/cutoff ratio result >/= 5.00 is 97% predictive of positivity for recombinant immunoblot assay (RIBA) and will be reported to the [place] Department of Public Health as required. Blood Venipuncture / Unknown 07/13/2022 12:57 PM DELIVERY ENGINEER 07/13/2022 2:08 PM DELIVERY ENGINEER us Bj Tatum MD HEMATOLOGY ORDERABLES Final Result [facility] [address] [place] [address], [place] * PSA SCREEN (07/13/2022 12:57 PM DELIVERY ENGINEER) Pathologist [facility] PSA SCREEN, TOTAL 1.40 <=4.00 ng/mL 07/13/2022 2:49 PM DELIVERY ENGINEER [facility] Blood Venipuncture / Unknown 07/13/2022 12:57 PM DELIVERY ENGINEER 07/13/2022 2:08 PM DELIVERY ENGINEER Narrative [facility] - 07/13/2022 2:49 PM DELIVERY ENGINEER PSA NOTE: The PSA value should be used in conjunction with information available from clinical evaluation and other diagnostic procedures. Bj Tatum MD CHEMISTRY ORDERABLES Final Result [facility] [address] [place] [address] * HEMOGLOBIN A1C W/ ESTIMATED GLUCOSE (07/13/2022 12:57 PM DELIVERY ENGINEER) HGB-A1C 5.4 4.0 - 6.0 % 07/13/2022 3:06 PM DELIVERY ENGINEER [facility] Est Average Glucose 108.3 mg/dL 07/13/2022 3:06 PM DELIVERY ENGINEER [facility] Blood Venipuncture / Unknown 07/13/2022 12:57 PM DELIVERY ENGINEER 07/13/2022 2:08 PM DELIVERY ENGINEER Narrative [facility] - 07/13/2022 3:06 PM DELIVERY ENGINEER HEMOGLOBIN A1C: DIABETIC PATIENTS: WELL-CONTROLLED: ?? 6.2 - 7.0 INTERMEDIATE WELL-CONTROLLED: ??7.0 - 9.0 POORLY-CONTROLLED: ??>9.0 Result [facility] Bj Tatum MD CHEMISTRY ORDERABLES Final Result [facility] [address] [place] [address] documented in this encounter Visit Diagnoses Diagnosis Adult acne- Primary Other acne Lesion of pancreas Unspecified disease of pancreas Obesity (BMI 30-39.9) Obesity, unspecified Hyperglycemia Other abnormal glucose Leukocytosis, unspecified type Screening for prostate cancer Special screening for malignant neoplasm of prostate Elevated liver enzymes Nonspecific elevation of levels of transaminase or lactic acid dehydrogenase (LDH) Vitamin D deficiency Unspecified vitamin D deficiency documented in this encounter Additional Health Concerns Assessment Noted Time PHQ-9 Depression Total Score: 0 05/05/20 19 3:00 PM DELIVERY ENGINEER documented as of this encounter Care Teams Chrome Cleaner Relationship Specialty Start Date End Date Bj Tatum MD [address] [place] [address] PCP - General Family Medicine 05/31/15 documented as of this encounter
--- OUTSIDE RECORDS SUMMARY | 2024-06-27 19:50 | XMS_ITS | Encounter Summary ---
Author Organization [facility] Address [address] [place] [address] Phone Care Team Providers Care Pediatric Dental Assistant Name Role Phone Bj Tatum MD Primary Care Provider [phone] Encounter Details Date Type Department Care Team (Late st Contact Info) Description 01/16/2021 Telephone [facility] #2 [place] [address] Bj Tatum MD #[address] [address] Social History Tobacco Use Types Packs/Day Years Used Date Smoking Tobacco: Former Cigarettes Q uit: 07/17/2016 Smokeless Tobacco: Never Alcohol Use Standard Drinks/Week Comments Yes 0 (1 standard drink = 0.6 oz pur e alcohol) 3 x a week PHQ-2 Answer Date Recorded PHQ-2 Score 0 05/05/2019 Sex and Gender Information Value Date Recorded Sex Assigned at Not on file Legal Sex Male 8:52 PM CDT Gender Identity Not on file Sexual Orientation Not on file COVID-19 Exposure Response Date Recorded In the last month, have you been in contact with someone who was confirmed or suspected to have Coronavirus / COVID-19? No / Unsure 01/16/2021 12:13 PM CDT documented as of this encounter Miscellaneous Notes * Telephone Encounter - Ewelina Jones - 01/24/2021 4:26 PM CDT Called patient and he didn't want to make an ER follow up because he is seeing GI for this problem. * Telephone Encounter - Bj Tatum MD - 01/16/2021 1:10 PM CDT Schedule him to see me or Bk Mendoza NP for ER follow-up. Thanks! documented in this encounter Plan of Treatment Upcoming Encounters Date Type Department Care Team (Late st Contact Info) Description 11/26/2024 1:45 PM CDT Office Visit [facility] - Family Medicine [facility] #2 [place] [address] Bj Tatum MD #[address] [address] documented as of this encounter Visit Diagnoses Not on filedocumented in this encounter Additional Health Concerns Assessment Noted Time PHQ-9 Depression Total Score: 0 05/05/20 19 3:00 PM TREASURY MANAGEMENT SALES CONSULTANT documented as of this encounter Care Teams Pediatric Dental Assistant Relationship Specialty Start Date End Date Bj Tatum MD #[address] [address] PCP - General Family Medicine 05/31/15 documented as of this encounter
--- OUTSIDE RECORDS SUMMARY | 2024-06-27 19:50 | XMS_ITS | Encounter Summary ---
Author Organization [facility] Address [address] [place] [address] Phone Care Team Providers Care Registered Dietetic Technician Name Role Phone Bj Tatum MD Primary Care Provider [phone] Encounter Details Date Type Department Care Team (Late st Contact Info) Description 07/10/2022 Telephone [facility] Family [facility] #2 [place] [address] Bj Tatum MD #[address] [address] Social History Tobacco Use Types Packs/Day Years [...] Coronavirus/COVID-19? No / Unsure 07/13/2022 12:46 PM INSOLE FILLER documented as of this encounter Miscellaneous Notes * Telephone Encounter - Karolina Aquino RMA - 07/18/2022 8:01 AM INSOLE FILLER Mailed letter LE FILLER * Telephone Encounter - Bj Tatum MD - 07/10/2022 8:59 PM INSOLE FILLER Please make sure he gets scheduled for the MRI. He has an open order for this. Thanks! LE FILLER documented in this encounter Plan of Treatment Upcoming Encounters Date Type Department Care Team (Late st Contact Info) Description 11/26/2024 1:45 PM CDT Office Visit [facility] - Family Medicine [facility] #[address] [place] [address] Bj Tatum MD #[address] [address] documented as of this encounter Visit Diagnoses Not on filedocumented in this encounter Additional Health Concerns Assessment Noted Time PHQ-9 Depression Total Score: 0 05/05/20 19 3:00 PM INSOLE FILLER documented as of this encounter Care Teams Registered Dietetic Technician Relationship Specialty Start Date End Date Bj Tatum MD #[address] [address] PCP - General Family Medicine 05/31/15 documented as of this encounter
--- OUTSIDE RECORDS SUMMARY | 2024-06-27 19:50 | XMS_ITS | Encounter Summary ---
Author Organization [facility] Address [address] [place] [address] Phone Care Team Providers Care Cosmetics Demonstrator Name Role Phone Bj Tatum MD Primary Care Provider Encounter Details Date Type Department Care Team (Late st Contact Info) Description 07/09/2022 Telephone [facility] - Family [facility] #2 [place] [address] Bj Tatum MD #[address] [address] Social History Tobacco Use Types Packs/Day Years [...] encounter Miscellaneous Notes * Telephone Encounter - Kathy Hester CMA - 07/09/2022 5:28 PM TELE TECH Patient was sheduled. All Patient Appointments Provider Department Dept Phone 07/10/2022 4:45 PM Bj Tatum [facility] [phone] TECH * Telephone Encounter - Bj Tatum MD - 07/09/2022 2:17 PM TELE TECH Schedule him for telephone visit with me for [facility] follow-up. Thanks! TECH documented in this encounter Plan of Treatment Upcoming Encounters Date Type Department Care Team (Late st Contact Info) Description 11/26/2024 1:45 PM CDT Office Visit [facility] [address] [place] [address] Bj Tatum MD #[address] [address] documented as of this encounter Visit Diagnoses Not on filedocumented in this encounter Additional Health Concerns Assessment Noted Time PHQ-9 Depression Total Score: 0 05/05/20 19 3:00 PM TELE TECH documented as of this encounter Care Teams Cosmetics Demonstrator Relationship Specialty Start Date End Date Bj Tatum MD #[address] [address] PCP - General Family Medicine 05/31/15 documented as of this encounter
--- OUTSIDE RECORDS SUMMARY | 2024-06-27 19:50 | XMS_ITS | Encounter Summary ---
Author Organization [facility] Address [address] [place] [address] Phone Care Team Providers Care Sterile Products Processor Name Role Phone Bj Tatum MD Primary Care Provider [phone] Encounter Details Date Type Department Care Team (Late st Contact Info) Description 01/16/2021 Telephone [facility] - [facility] [address] [place] [address] Bj Tatum MD #[address] [id number] Social History Tobacco Use Types Packs/Day Years [...] Encounter - Bj Tatum MD - 01/16/2021 4:48 PM CDT DONE. documented in this encounter Plan of Treatment Upcoming Encounters Date Type Department Care Team (Late st Contact Info) Description 11/26/2024 1:45 PM CDT Office Visit [facility] - Family Medicine [facility] [address] [place] [address] Bj Tatum MD #[address] [address] documented as of this encounter Visit Diagnoses Not on filedocumented in this encounter Additional Health Concerns Assessment Noted Time PHQ-9 Depression Total Score: 0 05/05/20 19 3:00 PM INTERACTIVE MEDIA DESIGNER documented as of this encounter Care Teams Sterile Products Processor Relationship Specialty Start Date End Date Bj Tatum MD #[address] [address] PCP - General Family Medicine 05/31/15 documented as of this encounter
--- OUTSIDE RECORDS SUMMARY | 2024-06-27 19:50 | XMS_ITS | Encounter Summary ---
Author Organization [facility] [employer] Care Team Providers Care Tester [employer]ocket [employer] Name Role Phone Bj Tatum MD Primary Care Provider Encounter Details Date Type Department Care Team (Latest Contact Info) Description 02/28/2021 Travel Social History Tobacco Use Types Packs/Day [...] have Coronavirus / COVID-19? 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
--- OUTSIDE RECORDS SUMMARY | 2024-06-27 19:50 | XMS_ITS | Encounter Summary ---
Author Organization [facility] Address [address] 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 Name Role Phone Bj Cantu MD Primary Care Provider [phone] Reason for Visit * Auth/Cert Specialty Diagnoses / Procedures Referred By Ferny solis Referred To Contact Diagnoses nausea-hematemesis Procedures EGD COLONOSCOPY Referral ID Status Reason Start Date Expiration Date Visits Re quested Visits Authorized [id number] 1 1 Encounter Details Date Type Department Care Team (Late st Contact Info) Description 03/03/2021 10:00 AM CDT - 03/03/2021 11:00 AM CDT [facility] Periop [address] [place] [id number] William Overton MD EGD - SUPERFICIAL DUODENAL ULCER, ANTRAL BIOPSIES, HIATAL HERNIA Surgery Details Date/Time Status Location OR Service Patient Class Case Class Case Type Trauma Case? 03/03/2021 10:00 AM Posted [facility] GI LAB GI 01 Gastroenterology [facility] Ambulatory Surgery Panel 1 Procedure LRB Anes Op Region Wound Class Comments EGD - SUPERFICIAL DUODENAL ULCER, ANTRAL BIOPSIES, HIATAL HERNIA N/A Monitored Anesthesia Care COLONOSCOPY -TICS, SPASTIC COLON, HEMORRHOIDS N/A Monitored Anesthesia Care Surgeon Surgeon Role Service Panel William Overton MD Primary Gastroenterology 1 Special Needs 03/03 - Hematemisis/BRBPR Covid test 02/28 at 1pm documented in this encounter Social History Tobacco [...] AM CDT documented as of this encounter Last Filed Vital Signs Vital Sign Reading Time Taken Comments Blood Pressure 144/92 03/03/2021 9:27 AM CDT Pulse 72 03/03/2021 9:27 AM CDT Temperature 37 ??C (98.6 ??F) 03/03/2021 9:27 AM CDT Respiratory Rate 14 03/03/2021 9:27 AM CDT Oxygen Saturation 100% 03/03/2021 9:27 AM CDT Inhaled Oxygen Concentration - - Weight 109.3 kg (241 lb) 02/07/2021 1:00 PM CDT Height 185.4 cm (6' 1 ) 02/07/2021 1:00 PM CDT Body Mass Index 31.8 02/07/2021 1:00 PM CDT documented in this encounter Discharge Instructions * Discharge Instructions* Catalina Gregory RN - 03/03/2021 11:34 AM CDT YOU HAD AN EGD AND A COLONOSCOPY TODAY. DR. OVERTON FOUND: GERD HIATAL HERNIA WITH REFLUX. DUODENAL ULCER HEMORRHOIDS Recommendations: CARAFATE 1 GRAM IN SLURRY FORM BID GERD REGIMEN. DO NOT DRIVE, WORK, OPERATE MACHINERY OR USE POWER TOOLS UNTIL DAY AFTER PROCEDURE. NO ALCOHOL BEVERAGES TODAY FOLLOWING DAY: RETURN TO FULL ACTIVITY, INCLUDING WORK, UNLESS INSTRUCTED OTHERWISE. Call doctor's office ([phone]) or go to Emergency room for: Difficulty Breathing, Headache Or Visual Disturbances Persistent Dizziness Or Light-Headedness Persistent Nausea and Vomiting Temperature greater then 100.0 Significant abdominal pain, chest pain, or bleeding. Here at [facility] we strive to provide excellent care to each of our patients, along with an easy transition between departments, starting with registration until discharge. Through our excellent care and services, we hope that you would recommend our services to your family and friends. You will receive a follow-up phone call in 24-48 hours after your procedure to see how you are doing. This gives our patients the opportunity to recognize any members from our team, from housekeepers, to nurses, to physicians, that you felt gave you excellent service as well as any suggestions for improvement. We hope you found our facility clean and our mission partners courteous. You may also receiving a survey in the mail. We would appreciate it if you could complete the form and return it. A self addressed pre-paid envelope is provided. THANK YOU FOR CHOOSING [facility]. * Attachments The following attachments cannot be sent through Care Everywhere. * Hernia, Hiatal (Chilean) * Acid Reflux, Tips to Control (Chilean) documented in this encounter Medications at Time of Discharge VITAMIN D PO Take by mouth daily. APPLE CIDER VINEGAR PO Take by mouth daily. 4 HYDROcodone-aceta minophen (NORCO) 5-325 MG Tablet Take 1-2 Tablets by mouth every 6 hours as needed for Moderate or more severe pain. 20 Tablet 01/16/2021 2 ondansetron (ZOFRAN-ODT) 4 MG TABLET DISPERSIBLE Take 1 Tablet by mouth every 8 hours as needed for Nausea - 1st line. 10 Tablet 01/16/2021 2 pantoprazole (PROTONIX) 40 MG Tablet Delayed ResponseIndicatio ns:Rectal bleeding Take 1 Tablet by mouth daily. 30 Tablet 01/16/2021 2 POTASSIUM CHLORIDE PO Take by mouth daily. 2 VITAMIN E PO Take by mouth daily. 4 documented as of this encounter H&P Notes * William Overton MD - 03/03/2021 10:40 AM CDT I have reviewed Zachary Capps History and Physical, re-examined him, and no change has occurred in his condition since the H&P was completed. I have explained the risks, benefits, and alternatives of the procedure to the patient and family. They wish to proceed with procedure. William Overton MD 03/03/2021 10:40 AM CDT Source Note - William Overton MD - 03/02/2021 5:50 PM CDT [facility] GASTROENTEROLOGY CONSULT/H&P NAME: Zachary Capps DATE 1980 DATE OF CONSULT: 03/02/2021 Very pleasant patient was seen at the request of DR. BJ CANTU and with the patient's permission. The patient was examined and the chart was reviewed. HISTORY: PATIENT WITH HISTORY COLON POLYP REMOVED ANF HAS H/O COLON HEMORRHAGE AND FAMILY H/O RECTAL CANCER. REFERRED FOR EGD/COLONOSCOPY.. ALLERGIES: No Known Allergies MEDICATIONS No medications prior to admission. PROBLEM LIST Patient Active Problem List Diagnosis ??? Hidradenitis suppurativa ??? Rectal bleeding ??? Family history of colon cancer ??? Ex-smoker ??? Elevated liver enzymes ??? Hematuria ??? History of substance abuse (HCC) ??? Hyperglycemia ??? Hepatic steatosis MEDICAL HISTORY: Past Medical History Positives Diagnosis Date ??? Polyp of colon SURGICAL HISTORY: Past Surgical History: Procedure Laterality Date ??? COLONOSCOPY ??? CYST REMOVAL October 2010 pilonidal cyst ??? CYST REMOVAL ??? OTHER SURGICAL HISTORY excision for perianal hidradenitis FAMILY HISTORY: Family History Problem Relation Age of Onset ??? Diabetes Mother ??? Hypertension Mother ??? Cancer Father SOCIAL HISTORY: Social History Socioeconomic History ??? Marital status: Single Spouse name: Not on file ??? Number of children: Not on file ??? Years of education: Not on file ??? Highest education level: Not on file Occupational History ??? Not on file Tobacco Use ??? Smoking status: Former Smoker Packs/day: 1.00 Years: 21.00 Pack years: 21.00 Quit date: 07/17/2016 Years since quittin.6 ??? Smokeless tobacco: Never Used Vaping Use ??? Vaping Use: Former Substance and Sexual Activity ??? Alcohol use: Yes Comment: 2-3 beer daily ??? Drug use: Yes Types: Marijuana ??? Sexual activity: Yes Other Topics Concern ??? Not on file Social History Narrative ??? Not on file Social Determinants of Health Social determinant risk not applicable to this patient. OBSTETRICS HISTORY: REVIEW OF RESULTS: LAB REVIEWED: Lab Results Component Value Date SODIUM 134 (L) 01/16/2021 POTASSIUM 3.9 01/16/2021 CHLORIDE 96 (L) 01/16/2021 CO2VEN 27 01/16/2021 ANIONGAP 14.9 01/16/2021 GLUCOSE 106 (H) 01/16/2021 BUN 8 01/16/2021 CREATININE 0.93 01/16/2021 BCRATIO8 9 (L) 01/16/2021 TOTALPROTEIN 8.0 02/28/2021 ALBUMIN 4.6 02/28/2021 CALCIUM 9.6 01/16/2021 TBIL 0.4 02/28/2021 SGOTAST 47 (H) 02/28/2021 SGPTALT 76 (H) 02/28/2021 ALKALINEPHO 103 02/28/2021 GFRNA >60 01/16/2021 GFRA >60 01/16/2021 Lab Results Component Value Date SODIUM 134 (L) 01/16/2021 POTASSIUM 3.9 01/16/2021 CHLORIDE 96 (L) 01/16/2021 CO2VEN 27 01/16/2021 ANIONGAP 14.9 01/16/2021 GLUCOSE 106 (H) 01/16/2021 BUN 8 01/16/2021 CREATININE 0.93 01/16/2021 BCRATIO8 9 (L) 01/16/2021 TOTALPROTEIN 8.0 02/28/2021 ALBUMIN 4.6 02/28/2021 CALCIUM 9.6 01/16/2021 TBIL 0.4 02/28/2021 SGOTAST 47 (H) 02/28/2021 SGPTALT 76 (H) 02/28/2021 ALKALINEPHO 103 02/28/2021 GFRNA >60 01/16/2021 GFRA >60 01/16/2021 T-1 Recent Labs Units 02/28/21 1250 ALBUMIN g/dL 4.6 TBIL mg/dL 0.4 BILIRUBIN mg/dL <0.3 ALKALINEPHO U/L 103 SGOTAST U/L 47* SGPTALT U/L 76* TOTALPROTEIN g/dL 8.0 Lab Results Component Value Date WBC 8.60 02/28/2021 WBC 17.38 (H) 01/16/2021 WBC 10.43 04/30/2019 HEMOGLOBIN 13.5 02/28/2021 HEMOGLOBIN 15.1 01/16/2021 HEMOGLOBIN 15.6 04/30/2019 HEMATOCRIT 38.8 02/28/2021 HEMATOCRIT 43.5 01/16/2021 HEMATOCRIT 46.7 04/30/2019 PLATELETCNT 274 02/28/2021 PLATELETCNT 235 01/16/2021 PLATELETCNT 309 04/30/2019 MCV 84.5 02/28/2021 MCV 85.6 01/16/2021 MCV 85.7 04/30/2019 LAST IMAGING: CT ABDOMEN PELVIS W/ CONTRAST Narrative: EXAM DESCRIPTION: CT ABDOMEN PELVIS W/ CONTRAST REASON FOR STUDY: Abdominal pain with hematochezia and hematemesis for 3 days. TECHNIQUE: CT scan of the abdomen and pelvis performed with intravenous and without oral contrast using helical scanning technique with dynamic intravenous contrast injection. Reconstructed coronal and sagittal MPR images reviewed. All images stored on PACS. Automated exposure control was used as a dose optimization technique for this examination. CONTRAST TYPE/DOSE: 120 mL Isovue 370 injected via right antecubital COMPARISON: 09/21/2016 FINDINGS: LOWER CHEST: No consolidation or pleural effusion. LIVER: No focal liver lesions identified. GALLBLADDER: No stones identified. No wall thickening or inflammatory changes. BILE DUCTS: No intrahepatic or extrahepatic ductal dilatation. SPLEEN: Normal size. No focal lesions. PANCREAS: 6 mm low-attenuation lesion along the uncinate process of the pancreas axial image 74. There may be an additional sub 5 mm low-attenuation lesion adjacent to it. No pancreatic ductal dilatation. No peripancreatic fat stranding. ADRENALS: Normal. KIDNEYS/URINARY TRACT: Symmetric enhancement of the kidneys. No hydronephrosis or hydroureter. 2 mm nonobstructive right renal calculus. Urinary bladder is unremarkable. GI: Colonic diverticulosis. Focal wall thickening along the cecum and proximal right: Adjacent to a diverticulum, suspicious for acute diverticulitis. There is adjacent mesenteric fat stranding and fluid. There is mild adjacent right lower quadrant mesenteric lymphadenopathy. No evidence of small-bowel obstruction. Appendix is normal. PERITONEUM: No free air identified. RETROPERITONEUM: Prominent right lower quadrant mesenteric lymph nodes. REPRODUCTIVE: Unremarkable VASCULATURE: No abdominal aortic aneurysm. MUSCULOSKELETAL: No acute fracture identified. THIS IS AN ELECTRONICALLY VERIFIED FINAL REPORT 01/16/2021 3:12 PM - Electronically signed by Aldo Simpson M.D. LUCIEN: LUCIEN Report ID: [id number] Reading Location: [id number] Impression: IMPRESSION: 1. Colonic diverticulosis with wall and fat stranding along the cecum and proximal right colon suspicious for acute diverticulitis. No free air or soft tissue abscess identified. Mild adjacent right lower quadrant mesenteric lymphadenopathy. Given the wall thickening and mild adjacent lymphadenopathy, follow-up with colonoscopy is recommended to exclude underlying mass. 2. 6 mm low-attenuation lesion along the uncinate process of the pancreas. Recommend follow-up with nonemergent pancreas protocol MRI. A leading differential diagnostic consideration is a side branch IPMN. EXAMINATION Ht 6' 1 (1.854 m) Wt 241 lb (109.3 kg) BMI 31.80 kg/m?? General appearance: alert, no distress, cooperative, appears stated age. HEENT: No scleral icterus Heart: regular rate and rhythm, S1, S2 normal, no murmur, click, rub or gallop. Lungs: no acute distress, clear to auscultation bilaterally anterior and posterior, good effort. Abdomen: soft, non-tender. Bowel sounds normal. No hepatosplenomegaly. No abdominal tenderness. Extremities: extremities normal, atraumatic, no cyanosis or edema, negative homans/haris Skin: Skin color, texture, turgor normal. No rashes or lesions. Lymph nodes: Cervical nodes normal., Supraclavicular nodes normal. Neurologic: Alert and oriented X 3. No focal deficits. ELIZABETH: No significant joint tenderness and swelling. No muscle atrophy. Mental status: Orientation X3. Affect was appropriate. Rectal exam: Deferred. IMPRESSION: R/O COLON CANCER WITH H/O COLON POLYP ANF FAMILY HISTORY OF COLON CANCER RECOMMENDATIONS: EGD/COLONOSCOPY TOMORROW Thank you for much for the opportunity to participate in the care of this patient. Please do not hesitate to contact us if we can be of any further assistance. Documentation for this visit on 03/03/21 was completed using a template. I have seen and examined thepatient. Everything documented was personally performed at this visit with the necessary additions,deletions and changes made as appropriate. * William Overton MD - 03/02/2021 5:50 PM CDT [facility] GASTROENTEROLOGY CONSULT/H&P NAME: Zachary Capps DATE 1980 DATE OF CONSULT: 03/02/2021 Very pleasant patient was seen at the request of DR. BJ CANTU and with the patient's permission. The patient was examined and the chart was reviewed. HISTORY: PATIENT WITH HISTORY COLON POLYP REMOVED ANF HAS H/O COLON HEMORRHAGE AND FAMILY H/O RECTAL CANCER. REFERRED FOR EGD/COLONOSCOPY.. ALLERGIES: No Known Allergies MEDICATIONS No medications prior to admission. PROBLEM LIST Patient Active Problem List Diagnosis ??? Hidradenitis suppurativa ??? Rectal bleeding ??? Family history of colon cancer ??? Ex-smoker ??? Elevated liver enzymes ??? Hematuria ??? History of substance abuse (HCC) ??? Hyperglycemia ??? Hepatic steatosis MEDICAL HISTORY: Past Medical History Positives Diagnosis Date ??? Polyp of colon SURGICAL HISTORY: Past Surgical History: Procedure Laterality Date ??? COLONOSCOPY ??? CYST REMOVAL October 2010 pilonidal cyst ??? CYST REMOVAL ??? OTHER SURGICAL HISTORY excision for perianal hidradenitis FAMILY HISTORY: Family History Problem Relation Age of Onset ??? Diabetes Mother ??? Hypertension Mother ??? Cancer Father SOCIAL HISTORY: Social History Socioeconomic History ??? Marital status: Single Spouse name: Not on file ??? Number of children: Not on file ??? Years of education: Not on file ??? Highest education level: Not on file Occupational History ??? Not on file Tobacco Use ??? Smoking status: Former Smoker Packs/day: 1.00 Years: 21.00 Pack years: 21.00 Quit date: 07/17/2016 Years since quittin.6 ??? Smokeless tobacco: Never Used Vaping Use ??? Vaping Use: Former Substance and Sexual Activity ??? Alcohol use: Yes Comment: 2-3 beer daily ??? Drug use: Yes Types: Marijuana ??? Sexual activity: Yes Other Topics Concern ??? Not on file Social History Narrative ??? Not on file Social Determinants of Health Social determinant risk not applicable to this patient. OBSTETRICS HISTORY: REVIEW OF RESULTS: LAB REVIEWED: Lab Results Component Value Date SODIUM 134 (L) 01/16/2021 POTASSIUM 3.9 01/16/2021 CHLORIDE 96 (L) 01/16/2021 CO2VEN 27 01/16/2021 ANIONGAP 14.9 01/16/2021 GLUCOSE 106 (H) 01/16/2021 BUN 8 01/16/2021 CREATININE 0.93 01/16/2021 BCRATIO8 9 (L) 01/16/2021 TOTALPROTEIN 8.0 02/28/2021 ALBUMIN 4.6 02/28/2021 CALCIUM 9.6 01/16/2021 TBIL 0.4 02/28/2021 SGOTAST 47 (H) 02/28/2021 SGPTALT 76 (H) 02/28/2021 ALKALINEPHO 103 02/28/2021 GFRNA >60 01/16/2021 GFRA >60 01/16/2021 Lab Results Component Value Date SODIUM 134 (L) 01/16/2021 POTASSIUM 3.9 01/16/2021 CHLORIDE 96 (L) 01/16/2021 CO2VEN 27 01/16/2021 ANIONGAP 14.9 01/16/2021 GLUCOSE 106 (H) 01/16/2021 BUN 8 01/16/2021 CREATININE 0.93 01/16/2021 BCRATIO8 9 (L) 01/16/2021 TOTALPROTEIN 8.0 02/28/2021 ALBUMIN 4.6 02/28/2021 CALCIUM 9.6 01/16/2021 TBIL 0.4 02/28/2021 SGOTAST 47 (H) 02/28/2021 SGPTALT 76 (H) 02/28/2021 ALKALINEPHO 103 02/28/2021 GFRNA >60 01/16/2021 GFRA >60 01/16/2021 T-1 Recent Labs Units 02/28/21 1250 ALBUMIN g/dL 4.6 TBIL mg/dL 0.4 BILIRUBIN mg/dL <0.3 ALKALINEPHO U/L 103 SGOTAST U/L 47* SGPTALT U/L 76* TOTALPROTEIN g/dL 8.0 Lab Results Component Value Date WBC 8.60 02/28/2021 WBC 17.38 (H) 01/16/2021 WBC 10.43 04/30/2019 HEMOGLOBIN 13.5 02/28/2021 HEMOGLOBIN 15.1 01/16/2021 HEMOGLOBIN 15.6 04/30/2019 HEMATOCRIT 38.8 02/28/2021 HEMATOCRIT 43.5 01/16/2021 HEMATOCRIT 46.7 04/30/2019 PLATELETCNT 274 02/28/2021 PLATELETCNT 235 01/16/2021 PLATELETCNT 309 04/30/2019 MCV 84.5 02/28/2021 MCV 85.6 01/16/2021 MCV 85.7 04/30/2019 LAST IMAGING: CT ABDOMEN PELVIS W/ CONTRAST Narrative: EXAM DESCRIPTION: CT ABDOMEN PELVIS W/ CONTRAST REASON FOR STUDY: Abdominal pain with hematochezia and hematemesis for 3 days. TECHNIQUE: CT scan of the abdomen and pelvis performed with intravenous and without oral contrast using helical scanning technique with dynamic intravenous contrast injection. Reconstructed coronal and sagittal MPR images reviewed. All images stored on PACS. Automated exposure control was used as a dose optimization technique for this examination. CONTRAST TYPE/DOSE: 120 mL Isovue 370 injected via right antecubital COMPARISON: 09/21/2016 FINDINGS: LOWER CHEST: No consolidation or pleural effusion. LIVER: No focal liver lesions identified. GALLBLADDER: No stones identified. No wall thickening or inflammatory changes. BILE DUCTS: No intrahepatic or extrahepatic ductal dilatation. SPLEEN: Normal size. No focal lesions. PANCREAS: 6 mm low-attenuation lesion along the uncinate process of the pancreas axial image 74. There may be an additional sub 5 mm low-attenuation lesion adjacent to it. No pancreatic ductal dilatation. No peripancreatic fat stranding. ADRENALS: Normal. KIDNEYS/URINARY TRACT: Symmetric enhancement of the kidneys. No hydronephrosis or hydroureter. 2 mm nonobstructive right renal calculus. Urinary bladder is unremarkable. GI: Colonic diverticulosis. Focal wall thickening along the cecum and proximal right: Adjacent to a diverticulum, suspicious for acute diverticulitis. There is adjacent mesenteric fat stranding and fluid. There is mild adjacent right lower quadrant mesenteric lymphadenopathy. No evidence of small-bowel obstruction. Appendix is normal. PERITONEUM: No free air identified. RETROPERITONEUM: Prominent right lower quadrant mesenteric lymph nodes. REPRODUCTIVE: Unremarkable VASCULATURE: No abdominal aortic aneurysm. MUSCULOSKELETAL: No acute fracture identified. THIS IS AN ELECTRONICALLY VERIFIED FINAL REPORT 01/16/2021 3:12 PM - Electronically signed by Aldo Simpson M.D. LUCIEN: LUCIEN Report ID: [id number] Reading Location: [id number] Impression: IMPRESSION: 1. Colonic diverticulosis with wall and fat stranding along the cecum and proximal right colon suspicious for acute diverticulitis. No free air or soft tissue abscess identified. Mild adjacent right lower quadrant mesenteric lymphadenopathy. Given the wall thickening and mild adjacent lymphadenopathy, follow-up with colonoscopy is recommended to exclude underlying mass. 2. 6 mm low-attenuation lesion along the uncinate process of the pancreas. Recommend follow-up with nonemergent pancreas protocol MRI. A leading differential diagnostic consideration is a side branch IPMN. EXAMINATION Ht 6' 1 (1.854 m) Wt 241 lb (109.3 kg) BMI 31.80 kg/m?? General appearance: alert, no distress, cooperative, appears stated age. HEENT: No scleral icterus Heart: regular rate and rhythm, S1, S2 normal, no murmur, click, rub or gallop. Lungs: no acute distress, clear to auscultation bilaterally anterior and posterior, good effort. Abdomen: soft, non-tender. Bowel sounds normal. No hepatosplenomegaly. No abdominal tenderness. Extremities: extremities normal, atraumatic, no cyanosis or edema, negative homans/haris Skin: Skin color, texture, turgor normal. No rashes or lesions. Lymph nodes: Cervical nodes normal., Supraclavicular nodes normal. Neurologic: Alert and oriented X 3. No focal deficits. ELIZABETH: No significant joint tenderness and swelling. No muscle atrophy. Mental status: Orientation X3. Affect was appropriate. Rectal exam: Deferred. IMPRESSION: R/O COLON CANCER WITH H/O COLON POLYP ANF FAMILY HISTORY OF COLON CANCER RECOMMENDATIONS: EGD/COLONOSCOPY TOMORROW Thank you for much for the opportunity to participate in the care of this patient. Please do not hesitate to contact us if we can be of any further assistance. Documentation for this visit on 03/03/21 was completed using a template. I have seen and examined thepatient. Everything documented was personally performed at this visit with the necessary additions,deletions and changes made as appropriate. documented in this encounter OR Notes * OR Surgeon - William Overton MD - 03/03/2021 11:27 AM CDT COLONOSCOPY PROCEDURE NOTE Date of Procedure: 03/03/2021 History and Preoperative Diagnosis: H/O RECTAL BLEEDING. H/O COLON POLYPS. FAMILY HISTORY OF COLON CANCER, MIXED BLEEDING HEMORRHOIDS Postoperative Diagnosis: SAME ABOVE. Findings: SAME ABOVE Anesthesia: MAC Complications: No immediate. Procedure performed: TOTAL COMPLETE NEGATIVE SCREENING. EXCELLENT PREP Quality Indicators: 100 % VISUALIZATION Recommendations: SITX BATHS Fiber BENEFIBER REPEAT COLONOSCOPY IN5 YEARS. Specimens: ID Type Source Tests Collected by Time A : ANTRAL BIOPSIES Tissue Stomach PATHOLOGY SURGICAL William Overton MD 03/03/2021 1050 EBL: less than 10ml Procedure Details: Pre-Procedure: After discussion of the risks, benefits, and alternatives to the procedure, informedconsent was obtained from patient/power of ingredient scaler/caregiver. Risks discussed included, but were not limited to infection, perforation, hemorrhage, arrhythmia, hypersensitivity to sedatives, missed c ancer, surgery, blood transfusion and . Based on the pre-procedure assessment, including review of the patient's medical history, medications, allergies, and review of systems, he had been deemed to be an appropriate candidate for moderate sedation. The patient understood procedure and all ques tions were answered. A physician-directed time out was held to confirm patient and procedure. Patient was placed in the left lateral decubitus position. Sedated by the department of Anesthesiology. Digital rectal examination was performed and was unremarkable. Using the Olympus video colonoscope, it was inserted under direct visualization into the rectum and advanced to the cecum (or as otherwise specified). The cecum was identified by the appendiceal opening and ileocecal valve. Instrument used: Olympus video colonoscope Documentation for this visit on 03/03/21 was completed using a template. I have seen and examined thepatient. Everything documented was personally performed at this visit with the necessary additions,deletions and changes made as appropriate. REFERRING PHYSICIAN: No ref. provider found Surgeon: Surgeon(s) and Role: * William Overton MD - Primary William Overton MD, 03/03/2021, 11:28 AM CDT Attending Physician: William Overton MD Primary Care Physician: Bj Cantu MD * OR Surgeon - William Overton MD - 03/03/2021 11:20 AM CDT ESOPHAGOGASTRODUODENOSCOPY PROCEDURE NOTE Date of Procedure: 03/03/2021 History and Pre-operative Diagnosis: H/o Duodenal ulcer GERD GASTRITIS WITH ANTRAL BIOPSIES PENDING HIATAL HERNIA Post-operative Diagnosis: SUPERFICIAL BLEEDING DUODENAL ULCER Findings: GERD HIATAL HERNIA WITH REFLUX. DUODENAL ULCER Anesthesia: MAC Complications: No immediate. Procedure Performed: ESOPHAGOGASTRODUODENOSCOPY WITH GASTRIC BIOPSIES Recommendations: CARAFATE 1 GRAM IN SLURRY FORM BID GERD REGIMEN. Specimens: ID Type Source Tests Collected by Time A : ANTRAL BIOPSIES Tissue Stomach PATHOLOGY SURGICAL William Overton MD 03/03/2021 1050 EBL: less than 10ml Procedure Details: Pre-Procedure: After discussion of the risks, benefits, and alternatives to the procedure, informedconsent was obtained from patient/power of ingredient scaler/caregiver. Risks discussed included, but were not limited to infection, perforation, hemorrhage, arrhythmia, hypersensitivity to sedatives, missed c ancer, surgery, blood transfusion and . Based on the pre-procedure assessment, including review of the patient's medical history, medications, allergies, and review of systems, he had been deemed to be an appropriate candidate for moderate sedation. The patient understood procedure and all ques tions were answered. A physician-directed time out was held to confirm patient and procedure. The patient was brought to the endoscopy suite after an overnight fast and was placed in the left lateral decubitus position, sedated by the Department of Anesthesiology. Using the Olympus video endoscope inserted under direct vision and without difficulty in to the esophagus. Detailed examination of the esophagus was carried out and the GE junction identified. Scope was then advanced to the second portion of the duodenum unless otherwise specified. The endoscope was withdrawn back into the stomach. The stomach was examined in the forward and retroflexed views. The scope was withdrawn from the patient. The patient tolerated the procedure well, without any immediate complications. Documentation for this visit on 03/03/21 was completed using a template. I have seen and examined the patient. Everything documented was personally performed at this visit with the necessary additions, deletions and changes made as appropriate. REFERRING PHYSICIAN: BJ Cantu md Surgeon: Surgeon(s) and Role: * William Overton MD - Primary Primary Care Physician: Bj Cantu MD documented in this encounter Miscellaneous Notes * Plan of Care - Catalina Gregory RN - 03/03/2021 11:23 AM CDT Problem: Ongoing Anesthesia Effects (Surgery Nonspecified) Goal: Anesthesia/Sedation Recovery Outcome: Therapy: Goal met Problem: Adult Inpatient Plan of Care Goal: Plan of Care Review Outcome: Therapy: Goal met Goal: Absence of Hospital-Acquired Illness or Injury Outcome: Therapy: Goal met Goal: Optimal Comfort and Wellbeing Outcome: Therapy: Goal met Goal: Readiness for Transition of Care Outcome: Therapy: Goal met * Interdisciplinary - Stephanie Masters RN - 03/03/2021 9:36 AM CDT Patient meets CDC/[facility] COVID criteria for no SARS-COV-2 testing per CDC guidelines. * Plan of Care - Stephanie Masters RN - 03/03/2021 9:15 AM CDT Problem: Adult Inpatient Plan of Care Goal: Plan of Care Review Flowsheets (Taken 03/03/2021914) Plan of Care Reviewed With: patient Outcome Summary: Ready for OR Today's Goal: To go home. Does the patient need assistance with discharge and/or transitioning to the next level of care?: No, no needs anticipated * Interdisciplinary - Chica Sinclair RN - 02/07/2021 2:12 PM CDT [facility] GI TEACHING Patient Name: Zachary Capps : 1980 [facility]#: [id number] Person Educated Patient Ready to Learn Yes Teaching Method Phone Advised patient will need a covid test with in 72 hours prior to procedure and recommended to self isolate or wear mask and social distance after covid test until procedure. Covid test on 02/28/21 at 1pm. The Day of Procedure: Call your physician if your physical condition changes (cold, fever, flu). Do not come to the hospital without first calling your physician. Follow your surgeon's instructions regarding your diet, bowel prep, and medications if applicable. If your have any questions, please contact your surgeon's office. No alcohol and no smoking for 24 hrs prior to procedure if applicable. Wear comfortable, loose fitting clothing. Instruction to leave all jewelry at home including wedding/engagement rings or any body piercing jewelry. Leave all valuables at home. Children ages under 16 must be accompanied by a parent or legal guardian in the hospital at all times. Detailed instructions given for arrival location and parking. Arrive for your procedure as instructed by the [facility] GI Lab. Go to Registration the morning of the procedure to check in. Arrange for a responsible person to accompany you and drive you home following your procedure. Follow directions regarding which medications to take or hold. It is very important to follow directions on diabetic medication or blood thinners from your surgeon's office. When you come to the hospital only 1 adult over the age of 16 will be allowed to accompany you to the [facility]. No children under the age of 16 will be allowed in the [facility] unless they are the patient. If the patient chooses to bring their children under the age of 16, an adult must accompany those children in the surgery waiting room and cannot leave them unattended. During the flu season: refer to the visitation restriction guidelines implemented during that season if applicable. Fall Prevention Teaching The Day of Surgery: ?? Your safety while you are in the hospital is very important to us. Following surgery, you might be at increased risk for falling for several reasons: ??? -The hospital environment is unfamiliar. It???s not the same as being at home ??? -You may be weaker than you realize. ??? -You may be connected to lines or equipment that can cause you to trip. ??? -You may be on medications that make you drowsy or dizzy. We know this can happen especially with pain medication and anesthesia. ??? We want to partner with you in the hospital to make sure you are safe ??? -Please do not feel hesitant to ask for help while in the hospital. You will -need extra help until you get stronger especially with walking and using the bathroom. ??? -Pay close attention to what the doctors and nurses tell you about your risk of falling. ??? -A fall can mean a longer hospital stay. Also, injuries from a fall can affect your health for the rest of your life. ??? Some things the nurses may do to keep you safe are: ??? -Have you use the call light for help whenever you get out of bed. ??? -Wear non-skid slippers to keep you from slipping on the floors ??? -Use a special belt that wraps around your waist so we can help steady you when you walk ??? -Activate an alarm on your bed so we know if you are getting up in case you forget to use your call light ??? -Stay in the bathroom with you in case you become dizzy or light headed Response to Teaching: Verbalizes Understanding Patient assessed for russian language instructor during the preop interview and appropriate interventions taken if applicable. documented in this encounter Plan of Treatment Upcoming Encounters Date Type Department Care Team (Late st Contact Info) Description 11/26/2024 1:45 PM CDT Office Visit [facility] [address] [place] [address] Bj Cantu MD [address] [place] [address] documented as of this encounter Procedures Procedure Name Priority Date/Time Associated Diagnosis Comments PATHOLOGY SURGICAL Routine 03/03/2021 10:50 AM CDT COLONOSCOPY 03/03/2021 10:24 AM CDT EGD - SUPERFICIAL DUODENAL ULCER, ANTRAL BIOPSIES, HIATAL HERNIACOLONOSCOPY -TICS, SPASTIC COLON, HEMORRHOIDS Special Needs 03/03 - Hematemisis/BRBPR Covid test 02/28 at 1pm EGD 03/03/2021 10:24 AM CDT EGD - SUPERFICIAL DUODENAL ULCER, ANTRAL BIOPSIES, HIATAL HERNIACOLONOSCOPY -TICS, SPASTIC COLON, HEMORRHOIDS Special Needs 03/03 - Hematemisis/BRBPR Covid test 02/28 at 1pm documented in this encounter Results * Pathology Surgical (03/03/2021 10:50 AM CDT) Case Report Surgical Pathology Report ? Case: [id number] ? Authorizing Provider: ??William Overton MD ?Collected: ? 03/03/2021 10:50 AM ? [facility] ? Received: ?03/03/2021 01:03 PM ? [facility] ? Lab Main ? Pathologist: ? Libby Lewis, ? MD ? Specimen: ?Stomach, ANTRAL BIOPSIES ? 03/07/2021 3:17 PM CDT [facility] FINAL DIAGNOSIS Stomach, Antrum, Biopsy: - No pathologic diagnosis. 03/07/2021 3:17 PM CDT [facility] Pre-Operative Diagnosis Nausea - Hematemesis 03/07/2021 3:17 PM CDT [facility] Gross Description A. ANTRAL BIOPSIES The specimen presents in a single formalin container for gross and microscopic examination, labeled with the patient's name, Zachary Capps, designated antral biopsies. The specimen consists of three pieces of light finnegan tissue measuring 0.2 to 0.4 cm in greatest dimension. All submitted cassette A1. KS/sb 03/07/2021 3:17 PM CDT [facility] Microscopic Description 3 H&E. Sections show fragments of unremarkable fundic-type gastric mucosa. No significant acute inflammation, intestinal metaplasia, or epithelial atypia is identified. SES/sb 03/07/2021 3:17 PM CDT [facility] Tissue STOMACH STRUCTURE / Unknown 03/03/2021 10:50 AM CDT 03/03/2021 1:03 PM CDT us William Overton MD PATHOLOGY/CYTOLOGY ORDERABLE S Final Result [facility] [address] [place] [address] documented in this encounter Visit Diagnoses Not on filedocumented in this encounter Administered Medications Inactive Administered Medications - up to 3 most recent administrations Medication Order MAR Action Action Date Dose Rate Site lactated ringers infusion at 10 mL/hr, Intravenous, CONTINUOUS, Starting on Sat03/03/21 at 1000, Until Sat03/03/21 at 1413 New Bag 03/03/2021 10:28 AM CDT ondansetron (ZOFRAN) injection 4 mg 4 mg, Intravenous, EVERY 12 HOURS PRN, Starting on Sat03/03/21 at 1027, Until Sat03/03/21 at 1413, Nausea - 1st line, First Line Antiemetic, PACU (I & II) Given 03/03/2021 10:53 AM CDT 4 mg documented in this encounter Active and Recently Administered Medications Times are shown in CDT. Continuous Medication Order 03/01/2021 03/02/2021 03/03/2021 lactated ringers infusion at 10 mL/hr, Intravenous, CONTINUOUS, Starting on Sat03/03/21 at 1000, Until Sat03/03/21 at 1413 1028 (New Bag - Prov ider: Dorie Biggs APN, DRUPAL DEVELOPER)1120 (Anesthesia Volume Adjustment - Provider: Dorie Biggs APN, DRUPAL DEVELOPER)1200 (Stopped - Provider: Catalina Gregory RN) PRN Medication Order 03/01/2021 03/02/2021 03/03/2021 ondansetron (ZOFRAN) injection 4 mg 4 mg, Intravenous, EVERY 12 HOURS PRN, Starting on Sat03/03/21 at 1027, Until Sat03/03/21 at 1413, Nausea - 1st line, First Line Antiemetic, PACU (I & II) 1053 (Given - Provid er: Dorie Biggs APN, DRUPAL DEVELOPER) documented in this encounter Additional Health Concerns Assessment Noted Time PHQ-9 Depression Total Score: 0 05/05/20 19 3:00 PM KNUCKLER documented as of this encounter Care Teams Potato Seed Cutter Relationship Specialty Start Date End Date Bj Cantu MD [address] [address] PCP - General Family Medicine 05/31/15 documented as of this encounter
--- OUTSIDE RECORDS SUMMARY | 2024-06-27 19:50 | XMS_ITS | Encounter Summary ---
Author Organization [facility] [employer] Care Team Providers Care Aircraft Technician Name Role Phone Bj Tatum MD Primary Care Provider [phone] Encounter Details Date Type Department Care Team (Latest Contact Info) Description 01/16/2021 Travel Social History Tobacco Use Types Packs/Day [...] Description 11/26/2024 1:45 PM CDT Office Visit [facility] Medical [facility] - Family [facility] [address] [place] [address] Bj Tatum MD [address] [address] documented as of this encounter Visit Diagnoses Not on filedocumented in this encounter Additional Health Concerns Assessment Noted Time PHQ-9 Depression Total Score: 0 05/05/20 19 3:00 PM LABEL OPERATOR documented as of this encounter Care Teams Aircraft Technician Relationship Specialty Start Date End Date Bj Tatum MD #[address] [address] PCP - General Family Medicine 05/31/15 documented as of this encounter
--- OUTSIDE RECORDS SUMMARY | 2024-06-27 19:50 | XMS_ITS | Encounter Summary ---
Author Organization [facility] [employer] Care Team Providers Care Street Roller Engineer Name Role Phone Bj Tatum MD Primary Care Provider [phone] Encounter Details Date Type Department Care Team (Latest Contact Info) Description 07/10/2021 Travel Social History Tobacco Use Types Packs/Day [...] COVID-19? No / Unsure 07/10/2021 8:47 AM SHODDY MILL WORKER documented as of this encounter Plan of Treatment Upcoming Encounters Date Type Department Care Team (Late st Contact Info) Description 11/26/2024 1:45 PM CDT Office Visit [facility] Medical Group - Family [facility] [address] [place] [id number] Bj Tatum MD #[address] [address] documented as of this encounter Visit Diagnoses Not on filedocumented in this encounter Additional Health Concerns Assessment Noted Time PHQ-9 Depression Total Score: 0 05/05/20 19 3:00 PM SHODDY MILL WORKER documented as of this encounter Care Teams Street Roller Engineer Relationship Specialty Start Date End Date Bj Tatum MD #[address] [address] PCP - General Family Medicine 05/31/15 documented as of this encounter
--- OUTSIDE RECORDS SUMMARY | 2024-06-27 19:50 | XMS_ITS | Encounter Summary ---
Author Organization [facility] Address [address] [place] [address] Phone Care Team Providers Care Director Power Name Role Phone Bj Cantu MD Primary Care Provider [phone] Reason for Visit * Auth/Cert Specialty Diagnoses / Procedures Referred By Ferny t Referred To Contact Diagnoses nausea-hematemesis Procedures EGD COLONOSCOPY Referral ID Status Reason Start Date Expiration Date Visits Re quested Visits Authorized [id number] 1 1 Encounter Details Date Type Department Care Team (Latest Contact Info) Description 03/03/2021 9:03 AM CDT - 03/03/2021 12:13 PM CDT Hospital Encounter [facility] Lab Preop/Pacu II [address] [place] [address] William Overton MD Discharge Disposition: Discharged to home or Selfcare [...] Sign Reading Time Taken Comments Blood Pressure 135/87 03/03/2021 11:48 AM CDT Pulse 75 03/03/2021 11:48 AM CDT Temperature 37 ??C (98.6 ??F) 03/03/2021 11:48 AM CDT Respiratory Rate 17 03/03/2021 11:48 AM CDT Oxygen Saturation 100% 03/03/2021 11:48 AM CDT Inhaled Oxygen Concentration - - [...] WORK, UNLESS INSTRUCTED OTHERWISE. Call doctor's office ([phone]) or go to Emergency room for: Difficulty Breathing, Headache Or Visual Disturbances Persistent Dizziness Or Light-Headedness Persistent Nausea and Vomiting Temperature greater then 100.0 Significant abdominal pain, chest pain, or bleeding. Here at [facility] we strive to provide excellent care to [...] envelope is provided. THANK YOU FOR CHOOSING [facility]. * Attachments The following attachments cannot be sent through Care Everywhere. * Hernia, Hiatal (Ivorian) * Acid Reflux, Tips to Control (Ivorian) documented in this encounter Medications at Time [...] 10:40 AM CDT I have reviewed Zachary Bernardtt History and Physical, re-examined him, and no change has occurred in his condition since the H&P was completed. I have explained the risks, benefits, and alternatives of the procedure to the patient and family. They wish to proceed with procedure. William Overton MD 03/03/2021 10:40 AM CDT Source Note - William Overton MD - 03/02/2021 5:50 PM CDT [facility] CONSULT/H&P NAME: Zachary Capps DATE 1980 [...] Aldo Simpson M.D. LUCIEN: LUCIEN Report ID: [id number] Reading Location: [id number] Impression: IMPRESSION: 1. Colonic diverticulosis with wall [...] MD - 03/02/2021 5:50 PM CDT [facility] CONSULT/H&P NAME: Zachary Capps DATE 1980 [...] Aldo Simpson M.D. LUCIEN: LUCIEN Report ID: [id number] Reading Location: [id number] Impression: IMPRESSION: 1. Colonic diverticulosis with wall [...] procedure, informedconsent was obtained from patient/power of blind aide/caregiver. Risks discussed included, but were not limited [...] procedure, informedconsent was obtained from patient/power of blind aide/caregiver. Risks discussed included, but were not limited [...] Goal: Plan of Care Review Flowsheets (Taken 03/03/2021 0915) Plan of Care Reviewed With: patient Outcome Summary: Ready for OR Today's Goal: To go home. Does the patient need assistance with discharge and/or transitioning to the next level of care?: No, no needs anticipated * Interdisciplinary - Chica Sinclair RN - 02/07/2021 2:12 PM CDT [facility] GI TEACHING Patient Name: Zachary Capps : 1980 CSN#: [id number] Person Educated Patient Ready to Learn Yes [...] for your procedure as instructed by the [facility] GI Lab. Go to Registration the morning [...] be allowed to accompany you to the [facility]. No children under the age of 16 will be allowed in the [facility] unless they are the patient. If the [...] to Teaching: Verbalizes Understanding Patient assessed for olive picker during the preop interview and appropriate interventions taken if applicable. documented in this encounter Plan of Treatment Upcoming Encounters Date Type Department Care Team (Late st Contact Info) Description 11/26/2024 1:45 PM CDT [facility] [address] [place] [address] Bj Cantu MD [address] [address] documented as of this encounter Procedures Procedure [...] Case Report Surgical Pathology Report ? Case: [id number] ? Authorizing Provider: ??William Overton MD ?Collected: ? 03/03/2021 10:50 AM ? [facility] ? Received: ?03/03/2021 01:03 PM ? [facility] ? Lab Main ? Pathologist: ? Libby Lewis, ? MD ? Specimen: ?Stomach, ANTRAL BIOPSIES ? 03/07/2021 3:17 PM CDT [facility] Stomach, Antrum, Biopsy: - No pathologic diagnosis. 03/07/2021 3:[address] [facility] Pre-Operative Diagnosis Nausea - Hematemesis 03/07/2021 3:17 PM CDT [facility] Gross Description A. ANTRAL BIOPSIES The specimen presents in a single formalin container for gross and microscopic examination, labeled with the patient's name, Zachary Capps, designated antral biopsies. The specimen consists of three pieces of light finnegan tissue measuring 0.2 to 0.4 cm in greatest dimension. All submitted cassette A1. KS/sb 03/07/2021 3:17 PM CDT [facility] Microscopic Description 3 H&E. Sections show fragments of unremarkable fundic-type gastric mucosa. No significant acute inflammation, intestinal metaplasia, or epithelial atypia is identified. SES/sb 03/07/2021 3:17 PM CDT [facility] Tissue STOMACH STRUCTURE / Unknown 03/03/2021 10:50 AM CDT 03/03/2021 1:03 PM CDT us William Overton MD PATHOLOGY/CYTOLOGY ORDERABLE S Final Result [facility] [address] [place] [address] documented in this encounter Visit Diagnoses Not [...] Bag - Prov ider: Dorie Biggs APN, ADAM)1120 (Anesthesia Volume Adjustment - Provider: Dorie Biggs APN, ADAM)1200 (Stopped - Provider: Catalina Gregory RN) PRN Medication Order 03/01/2021 03/02/2021 03/03/2021 ondansetron (ZOFRAN) injection 4 mg 4 mg, Intravenous, EVERY 12 HOURS PRN, Starting on Sat03/03/21 at 1027, Until Sat03/03/21 at 1413, Nausea - 1st line, First Line Antiemetic, PACU (I & II) 1053 (Given - Provid er: Dorie Biggs APN, ADAM) documented in this encounter Additional Health Concerns Assessment Noted Time PHQ-9 Depression Total Score: 0 05/05/20 19 3:00 PM HIDE HOUSE SUPERVISOR documented as of this encounter Care Teams Director Power Relationship Specialty Start Date End Date Bj Cantu MD [address] [place] [id number] PCP - General Family Medicine 05/31/15 documented as of this encounter
--- OUTSIDE RECORDS SUMMARY | 2024-06-27 19:50 | XMS_ITS | Encounter Summary ---
Author Organization [facility] Address [address] [place] [address] Phone Care Team Providers Care Manager Event Name Role Phone Bj Tatum MD Primary Care Provider [phone] Encounter Details Date Type Department Care Team (Late st Contact Info) Description 07/10/2021 7:54 AM TRAIL CONSTRUCTION WORKER - 07/10/2021 8:09 AM TRAIL CONSTRUCTION WORKER Emergency [facility] Emergency [address] [place] [address] Discharge Disposition: LWBS Social History Tobacco Use Types Packs/Day Years [...] on file documented as of this encounter Medications at Time of Discharge [...] daily. 4 documented as of this encounter Plan of Treatment Upcoming Encounters Date Type Department Care Team (Late st Contact Info) Description 11/26/2024 1:45 PM CDT Office Visit [facility] [address] [place] [address] Bj Tatum MD #[address] [address] documented as of this encounter Visit Diagnoses Not on filedocumented in this encounter Additional Health Concerns Assessment Noted Time PHQ-9 Depression Total Score: 0 05/05/20 19 3:00 PM TRAIL CONSTRUCTION WORKER documented as of this encounter Care Teams Manager Event Relationship Specialty Start Date End Date Bj Tatum MD #[address] [address] PCP - General Family Medicine 05/31/15 documented as of this encounter
--- OUTSIDE RECORDS SUMMARY | 2024-06-27 19:50 | XMS_ITS | Encounter Summary ---
Author Organization [facility] [employer] Care Team Providers Care Bull Chain Operator Name Role Phone Bj Tatmu MD Primary Care Provider [phone] Jonas Marte MD Unavailable Encounter Details Date Type Department Care Team (Latest Contact Info) Description 12/26/2023 Travel Social History Tobacco Use Types Packs/Day [...] 11/26/2024 1:45 PM CDT Office Visit [facility] Medical Group - Family [facility] #2 [place] [address] Bj Tatum MD #[address] [address] documented as of this encounter Visit Diagnoses Not on filedocumented in this encounter Additional Health Concerns Assessment Noted Time PHQ-9 Depression Total Score: 0 05/05/20 19 3:00 PM DITCHING MACHINE OPERATOR documented as of this encounter Care Teams Bull Chain Operator Relationship Specialty Start Date End Date Bj Tatum MD #2 [facility] [address] [place] [address] PCP - General Family Medicine 05/31/15 Jonas Marte MD #2 [facility] [address] [place] [address] Consulting Physician Colon and Rectal Surgery 12/20/23 documented as of this encounter
--- OUTSIDE RECORDS SUMMARY | 2024-06-27 19:50 | XMS_ITS | Encounter Summary ---
Author Organization [facility] Address [address] [place] [address] Phone Care Team Providers Care Patient Access Coordinator Name Role Phone Bj Tatum MD Primary Care Provider [phone] Encounter Details Date Type Department Care Team (Late st Contact Info) Description 01/09/2021 Telephone [facility] #[address] [place] [address] Bj Tatum MD #[address] [address] Social History Tobacco Use Types Packs/Day Years [...] Telephone Encounter - Bj Tatum MD - 01/11/2021 9:47 PM CDT Thanks for the update! * Telephone Encounter - Ewelina Jones - 01/11/2021 1:10 PM CDT Patient didn't want to make a ER Follow up at this time. Patient states he will call if he needs anything. * Telephone Encounter - Bj Tatum MD - 01/09/2021 4:22 PM CDT Schedule him to see me or Bk Mendoza NP for ER follow-up. Thanks! documented in this encounter Plan of Treatment Upcoming Encounters Date Type Department Care Team (Late st Contact Info) Description 11/26/2024 1:45 PM CDT Office Visit [facility] #[address] [place] [address] Bj Tatum MD #[address] [address] documented as of this encounter Visit Diagnoses Not on filedocumented in this encounter Additional Health Concerns Assessment Noted Time PHQ-9 Depression Total Score: 0 05/05/20 19 3:00 PM ROTOPRINTER documented as of this encounter Care Teams Patient Access Coordinator Relationship Specialty Start Date End Date Bj Tatum MD #[address] [address] PCP - General Family Medicine 05/31/15 documented as of this encounter
--- OUTSIDE RECORDS SUMMARY | 2024-06-27 19:50 | XMS_ITS | Encounter Summary ---
Author Organization [facility] Address [address] [place] [address] Phone Care Team Providers Care [employer] Speech Therapist Name Role Phone Bj Tatum MD Primary Care Provider [phone] Reason for Visit * Reason Onset Date Comments Results 12/03/2023 Encounter Details Date Type Department Care Team (Late st Contact Info) Description 12/03/2023 Telephone [facility] - Family Medicine [facility] [address] [place] [address] Bk Mendoza APRN, [employer] [address] [id number] Results Social History Tobacco Use Types Packs/Day [...] encounter Miscellaneous Notes * Telephone Encounter - Glory Beck RN - 12/03/2023 12:17 PM CDT ----- Message from Bk Mendoza APRN, AUBREY sent at 12/03/2023 8:39 AM CDT ----- He has some mild elevation of his LFTs. Most likely from ETOH. Needs to further cut back/stop. Highcholesterol. Other labs OK. documented in this encounter Plan of Treatment Upcoming Encounters Date Type Department Care Team (Late st Contact Info) Description 11/26/2024 1:45 PM CDT Office Visit [facility] - Family [facility] [address] [place] [address] Bj Tatum MD [address] [address] documented as of this encounter Visit Diagnoses Not on filedocumented in this encounter Additional Health Concerns Assessment Noted Time PHQ-9 Depression Total Score: 0 05/05/20 19 3:00 PM [employer] documented as of this encounter Care Teams School Speech Therapist Relationship Specialty Start Date End Date Bj Tatum MD #[address] [address] PCP - General Family Medicine 05/31/15 documented as of this encounter
--- OUTSIDE RECORDS SUMMARY | 2024-06-27 19:50 | XMS_ITS | Encounter Summary ---
Author Organization [facility] Address [address] 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 Name Role Phone Bj Tatum MD Primary Care Provider [phone] Reason for Visit * Reason Comments Abdominal Pain Encounter Details Date Type Department Care Team (Late st Contact Info) Description 01/16/2021 12:17 PM CDT - 01/16/2021 4:14 PM CDT Emergency [facility] [address] [place] [address] Jay Ellis MD [address] [place] [address] Hematemesis Discharge Disposition: Discharged to home or Selfcare [...] PM CDT documented as of this encounter Last Filed Vital Signs Vital Sign Reading Time Taken Comments Blood Pressure 145/79 01/16/2021 4:13 PM CDT Pulse 78 01/16/2021 4:13 PM CDT Temperature 37.3 ??C (99.2 ??F) 01/16/2021 12:12 PM C DT Respiratory Rate 18 01/16/2021 4:13 PM CDT Oxygen Saturation 97% 01/16/2021 4:13 PM CDT Inhaled Oxygen Concentration - - Weight 108 kg (238 lb) 01/16/2021 12:12 PM CDT Height 185.4 cm (6' 1 ) 01/16/2021 12:12 PM CDT Body Mass Index 31.4 01/16/2021 12:12 PM CDT documented in this encounter Discharge Instructions * Discharge Instructions* Jay Ellis - 01/16/2021 3:56 PM CDT Images from the original note were not included. Diverticulitis Some people get pouches along the wall of the colon as they get older. These pouches are??called diverticuli. They often cause no symptoms. If the pouches become blocked, you can get an infection. This infection is called diverticulitis. It causes pain in your lower belly (abdomen) and fever. It may also cause nausea, vomiting, diarrhea, or constipation. If not treated, it can become a serious health problem. It can cause an abscess to form inside the pouch. The abscess may block the intestinaltract. It may even rupture, spreading infection throughout the belly. When treatment is started early, oral antibiotics alone may be enough to cure diverticulitis. This method is tried first. But if you don't improve or if your condition gets worse while using these medicines, you may need to be admitted to the hospital. There, you will get antibiotics through an IV.You may also have to rest your bowel. That means you won't eat or drink for a period of time. Severe cases may need surgery. Home care These guidelines will help you care for yourself at home: ?? During the acute illness, rest and follow your healthcare??provider's instructions about diet. Sometimes you will need to be on a clear liquid diet to rest your bowel. Once your symptoms are better, you may be told to eat a low- fiber diet for some time. You can eat foods such as: ? Flake cereal ? Mashed potatoes ? Pancakes and waffles ? Pasta ? White bread ? Rice ? Applesauce ? Bananas ? Eggs ? Fish ? Poultry ? Tofu ? Cooked soft vegetables ?? Take antibiotics exactly as told. Don't miss any doses or stop taking the medicine, even if you feel better. ?? Monitor your temperature. Tell your healthcare provider if you have a rising temperature. Preventing future attacks Once you have an episode of diverticulitis, you are at risk for having it again. But you may be able to lower your risk by eating a high-fiber diet (20 g/day to 35 g/day of fiber). This cleans out the colon pouches that already exist. It may also prevent new ones from forming. Foods high in fiber include: ?? Fresh fruits and edible peelings ?? Raw or lightly cooked vegetables ?? Whole-grain cereals and breads ?? Dried beans and peas ?? Bran Here are other steps you can take to help prevent future attacks: ?? Take your medicines, such as antibiotics, as??your healthcare provider says. ?? Drink 6 to 8 glasses of water every day, unless told otherwise. ?? Use a heating pad or hot water bottle to help belly cramping or pain. ?? Start an exercise program. Ask your healthcare provider how to get started. You can benefit fromsimple activities such as walking or gardening. ?? Treat diarrhea with a bland diet. Start with liquids only. Then slowly add fiber over time. ?? Watch for changes in your bowel movements (constipation to diarrhea). Prevent constipation by eating a high-fiber diet and taking a stool softener if needed. ?? Get plenty of rest and sleep. Follow-up care Check in with your healthcare provider as advised or sooner if you are not getting better in the next 2??days. When to call your healthcare provider Call your healthcare provider right away if any of these occur: ?? Fever of 100.4??F (38??C) or higher, or as directed by your healthcare provider ?? Repeated vomiting or swelling of the belly ?? Weakness, dizziness, light-headedness ?? Pain in your belly that gets worse, is severe, or spreads to your back ?? Pain that moves to the right lower belly ?? Rectal bleeding (stools that are red, black, or maroon in color) ?? Unexpected vaginal bleeding [employer] last reviewed this educational content on 01/29/2019 ?? 8524-1533 [employer]. All rights reserved. This information is not intended as a substitute for professional medical care. Always follow your healthcare professional's instructions. When You Have Gastrointestinal (GI) Bleeding Blood in your vomit or stool can be a sign of gastrointestinal (GI) bleeding. GI bleeding can be scary. But the cause may not be serious. You should??always??see a doctor if you have GI bleeding. The GI tract is the path through which??food travels in the body. Food passes from the mouth down the esophagus. This is the tube from the mouth to the stomach. Food starts to break down in the stomach. It then moves through the duodenum ,??the first part of the small intestine . Nutrients are absorbed as food travels through the small intestine. What is left passes into the colon (large intestine) as waste. The colon removes water from the waste. Waste continues from the colon to the rectum (where stool is stored). Waste then leaves the body through the anus . The upper GI tract is from the mouth through the duodenum. The lower GI tract is from the end of the duodenum to the anus. Causes of GI bleeding GI bleeding can be caused by many different problems. Some of the more common causes include: ?? Swollen veins in the anus (hemorrhoids) ?? Swollen veins in the esophagus (varices) ?? Sore on the lining of the GI tract (ulcer) ?? Cuts or scrapes in the mouth or throat ?? Infection caused by germs such as bacteria or parasites ?? Food allergies, such as milk allergy in young children ?? Medicines, especially aspirin, blood thinners, and NSAIDs (non-steroidal anti-inflammatory drugs) such as ibuprofen ?? Inflammation of the GI tract (gastritis or esophagitis) ?? Colitis (Crohn's disease or ulcerative colitis) ?? Cancer (tumors or polyps) ?? Abnormal pouches in the colon (diverticula) ?? Tears in the esophagus or anus ?? Nosebleed ?? Abnormal blood vessels in the GI tract (angiodysplasia) Diagnosing the cause of blood in stool If blood is coming out in your stool, you may have a lower GI tract problem??or a very fast upper GI tract bleed. Bleeding from the GI tract can be bright red. Or it may look dark and tarry.??Tests may also find blood in your stool that can???t be seen with the eye (occult blood). To find out the cause, tests that may be ordered include: ?? Blood tests. A blood sample is taken and sent to a lab for exam. ?? Hemoccult test. Checks a stool sample for blood. ?? Stool culture. Checks a stool sample for bacteria or parasites. ?? X-ray, ultrasound, nuclear scan, or CT scan. Imaging tests that take pictures of the digestive tract. ?? Colonoscopy or sigmoidoscopy. This test uses a flexible tube with a tiny camera. The tube is inserted through your anus into your rectum to see the inside of your colon. Your provider can also take a tiny tissue sample (biopsy) and treat a bleeding source ?? Capsule endoscopy. This test uses a tiny camera that is swallowed, passes through the intestine,and takes pictures of the small intestine that is more difficult to reach with scopes. Diagnosing the cause of blood in vomit If you are vomiting blood or something that looks like coffee grounds,??you may have an upper GI tract problem. To find the cause, tests that may be done include: ?? Upper endoscopy. A flexible tube with a tiny camera is inserted through your mouth and throat tosee inside your upper GI tract. This lets your provider take a tiny tissue sample (biopsy) and treat a bleeding source. ?? Nasogastric lavage. The healthcare provider may withdraw some of the fluid in the stomach to test it for bleeding. This can sometimes tell if you have upper GI or lower GI bleeding. ?? X-ray, ultrasound, nuclear scan, or CT scan. Imaging tests that take pictures of your digestive tract. ?? Upper GI series. X-rays of the upper part of your GI tract taken after swallowing a contrast drink. . ?? Enteroscopy. This sends a flexible tube or a small, swallowed capsule camera into your small intestine. When to call your healthcare provider Call your healthcare provider right away if you have any of the following: ?? Fever of 100.4?? F??( 38.0??) or higher ?? Signs of fluid loss (dehydration). These include a dry, sticky mouth, decreased urine output, and very dark urine. ?? Belly (abdominal) pain Call 911 Call 911, or get medical care right away if any of the following occur: ?? Bleeding from your mouth or anus that can't be stopped ?? Bleeding along with feeling lightheaded or dizzy [employer] last reviewed this educational content on 11/29/2018 ?? 9545-1818 [employer]. All rights reserved. This information is not intended as a substitute for professional medical care. Always follow your healthcare professional's instructions. TAKE 1ST DOSE HOME ANTIBIOTIC TONIGHT. CALL INSURANCE TOMORROW TO FIND COLLEGE ARCHIVIST THAT TAKES YOUR INSURANCE. YOU NEED FURTHER EVALUATION AND MANAGEMENT. RETURN NEAREST ER IF ANY SUDDEN WORSENING OR CHANGE. documented in this encounter Medications at Time of Discharge amoxicillin-clavu lanate (Augmentin) 875-125 MG Tablet Take 1 Tablet by mouth 2 times daily for 10 days. 20 Tablet 01/16/2021 1 HYDROcodone-aceta minophen (NORCO) 5-325 MG Tablet Take [...] by mouth daily. 30 Tablet 01/16/2021 2 documented as of this encounter ED Notes * Edgardo Cooley RN - 01/16/2021 4:14 PM CDT Patient discharged. Discharge instructions and patient educational material reviewed with patient; questions and concerns addressed; patient verbalizes understanding, using teach back. Patient was given 3 prescriptions. Patient was informed no drinking alcohol, driving or operating heavy machinery while taking narcotics or muscle relaxants. Patient ambulatory to ER exit as responsible republican. SL D/C'ed with Michael cath intact. Pt alert and oriented x 4 with respirations that are even and unlabored * Edgardo Cooley RN - 01/16/2021 4:08 PM CDT Pt medicated per provider orders. Pt educated on intended effects and side effects of medication and verbalized understanding, able to provide teach back of education. * Edgardo Cooley RN - 01/16/2021 3:41 PM CDT Patient is resting in room with call light at bedside. Patient informed about wait time and verbalizes understanding. Patient denies needs at this time and verbalizes understanding that RN will complete hourly rounding. * Edgardo Cooley RN - 01/16/2021 2:48 PM CDT Report received from Apurva PARNELL * Pratibha Redman RN - 01/16/2021 2:27 PM CDT Patient sleeping on stretcher. Call light within reach. Significant other at bedside. Will continueto monitor. * Pratibha Redman RN - 01/16/2021 1:53 PM CDT Pt medicated per provider orders. Pt educated on intended effects and side effects of medication and verbalized understanding, able to provide teach back of education. * Pratibha Redman RN - 01/16/2021 1:45 PM CDT Patient resting on stretcher with no requests at this time. Informed patient that he will be going to CT scanner soon. States understanding. Call light within reach. Will continue to monitor. * Pratibha Redman RN - 01/16/2021 1:36 PM CDT Pt medicated per provider orders. Pt educated on intended effects and side effects of medication and verbalized understanding, able to provide teach back of education. * Jay Ellis - 01/16/2021 1:31 PM CDT Chief Complaint Patient presents with ??? Abdominal Pain Zachary Capps is a 41 y.o. male TO THE EMERGENCY DEPARTMENT SATURDAY JANUARY 16, 2021 WITH COMPLAINT OF VOMITING BLOOD AND BLOODY STOOLS. HAD HIS BIRTHDAY LAST WEEK AND DRINKING PRETTY HEAVILY. HAS HISTORY OF GI BLEED DUE TO ULCER IN THE PAST. WAS ON PROTONIX FOR PERIOD OF TIME. STOP TAKING IT. PATIENT TOOK OLD PROTONIX PRESCRIPTION FOR 2 DAYS WITHOUT RELIEF. NO BLOOD THINNERS. NO DIRECT ABDOMINALTRAUMA. PATIENT ALSO HAS A CAVITY CAUSING HIM SEVERE PAIN AND SUBSEQUENTLY HAS BEEN TAKING A LOT OFMOTRIN WELL THIS LAST WEEK. THIS INCREASED HIS EPIGASTRIC PAIN. NO KNOWN DIAGNOSIS IBS, IBD, BOWEL PERFORATION OR BOWEL OBSTRUCTION. TRIED PROBIOTICS WITHOUT RELIEF. TRIED TUMS WITHOUT RELIEF. S IGNIFICANT OTHER AT BEDSIDE. HERE FOR FURTHER EVALUATION MANAGEMENT. History reviewed. No pertinent past medical history. Past Surgical History: October 2010: CYST REMOVAL Comment: pilonidal cyst No date: OTHER SURGICAL HISTORY Comment: excision for perianal hidradenitis The history is provided by the patient and medical records. Abdominal Pain Associated symptoms: nausea and vomiting Associated symptoms: no chest pain, no chills, no constipation, no cough, no diarrhea, no dysuria, no fever, no shortness of breath and no sore throat Current Facility-Administered Medications Medication Dose Route Frequency Provider Last Rate Last Admin ??? GI Cocktail 30 mL Oral Once Jay Ellis MD ??? pantoprazole (PROTONIX) injection 40 mg 40 mg Intravenous Once Jay Ellis MD Current Outpatient Medications Medication Sig Dispense Refill ??? pantoprazole (PROTONIX) 40 MG Tablet Delayed Response Take 1 Tab by mouth daily. 30 Tab 5 No Known Allergies History reviewed. No pertinent past medical history. Past Surgical History: Procedure Laterality Date ??? CYST REMOVAL October 2010 pilonidal cyst ??? OTHER SURGICAL HISTORY excision for perianal hidradenitis Social History Socioeconomic History ??? Marital status: Single Spouse name: Not on file ??? Number of children: Not on file ??? Years of education: Not on file ??? Highest education level: Not on file Occupational History ??? Not on file Tobacco Use ??? Smoking status: Former Smoker Quit date: 07/17/2016 Years since quittin.5 ??? Smokeless tobacco: Never Used Substance and Sexual Activity ??? Alcohol use: Yes Comment: 3 x a week ??? Drug use: Yes Types: Marijuana ??? Sexual activity: Not on file Other Topics Concern ??? Not on file Social History Narrative ??? Not on file Social Determinants of Health Social determinant risk not applicable to this patient. BP 155/90 Pulse 86 Temp 99.2 ??F (37.3 ??C) (Tympanic) Resp 18 Ht 6' 1 (1.854 m) Wt 238 lb (108 kg) SpO2 96% BMI 31.40 kg/m?? Review of Systems Constitutional: Negative for appetite change, chills and fever. HENT: Negative for congestion, hearing loss, rhinorrhea and sore throat. Eyes: Negative for visual disturbance. Respiratory: Negative for cough and shortness of breath. Cardiovascular: Negative for chest pain. Gastrointestinal: Positive for abdominal pain, anal bleeding, blood in stool, nausea and vomiting. Negative for abdominal distention, constipation, diarrhea and rectal pain. Genitourinary: Negative for decreased urine volume and dysuria. Musculoskeletal: Negative for myalgias. Skin: Negative for rash. Neurological: Negative for dizziness, seizures, syncope, weakness, light- headedness and headaches. Psychiatric/Behavioral: Negative for confusion. All other systems reviewed and are negative. Physical Exam Vitals and nursing note reviewed. Constitutional: General: He is not in acute distress. Appearance: He is well-developed. He is not ill-appearing, toxic-appearing or diaphoretic. HENT: Head: Normocephalic and atraumatic. Nose: Nose normal. Mouth/Throat: Mouth: Mucous membranes are moist. Pharynx: Oropharynx is clear. Eyes: General: No scleral icterus. Right eye: No discharge. Left eye: No discharge. Extraocular Movements: Extraocular movements intact. Conjunctiva/sclera: Conjunctivae normal. Pupils: Pupils are equal, round, and reactive to light. Neck: Trachea: No tracheal deviation. Cardiovascular: Rate and Rhythm: Normal rate and regular rhythm. Heart sounds: Normal heart sounds. No murmur heard. No friction rub. No gallop. Pulmonary: Effort: Pulmonary effort is normal. No respiratory distress. Breath sounds: Normal breath sounds. No stridor. No wheezing or rales. Abdominal: General: Bowel sounds are normal. There is no distension. Palpations: Abdomen is soft. Tenderness: There is abdominal tenderness in the epigastric area and left lower quadrant. There is no guarding or rebound. Musculoskeletal: General: No tenderness. Normal range of motion. Cervical back: Normal range of motion and neck supple. Lymphadenopathy: Cervical: No cervical adenopathy. Skin: General: Skin is warm and dry. Capillary Refill: Capillary refill takes less than 2 seconds. Coloration: Skin is not pale. Findings: No erythema or rash. Neurological: General: No focal deficit present. Mental Status: He is alert and oriented to person, place, and time. Cranial Nerves: No cranial nerve deficit. Psychiatric: Mood and Affect: Mood normal. Behavior: Behavior normal. Thought Content: Thought content normal. Judgment: Judgment normal. Procedures Imaging Results CT ABDOMEN PELVIS W/ CONTRAST (No Result on File) MDM Number of Diagnoses or Management Options Acute diverticulitis: new, needed workup Hematemesis: new, needed workup Leukocytosis: new, needed workup Amount and/or Complexity of Data Reviewed Clinical lab tests: ordered and reviewed Tests in the radiology section of CPT??: ordered and reviewed Tests in the medicine section of CPT??: reviewed and ordered Discussion of test results with the performing providers: no Decide to obtain previous medical records or to obtain history from someone other than the patient:yes Obtain history from someone other than the patient: no Review and summarize past medical records: yes Discuss the patient with other providers: no Independent visualization of images, tracings, or specimens: yes Risk of Complications, Morbidity, and/or Mortality Presenting problems: moderate Diagnostic procedures: moderate Management options: moderate Patient Progress Patient progress: stable Coding DIFFERENTIAL DIAGNOSIS INCLUDES GASTRITIS, GERD, PEPTIC ULCER DISEASE, COAGULOPATHY, COLITIS, DIVERTICULITIS, IBS, IBD UNLIKELY BOWEL PERFORATION, UNLIKELY BOWEL OBSTRUCTION, HEMORRHAGIC ANEMIA, ALCOHOL ABUSE, ETCETERA 3:54 PM CDT RESTING COMFORTABLY. PAIN STARTED TO RETURN. SEE RESULTS. Admission on 01/16/2021 Component Date Value Ref Range Status ??? SODIUM 01/16/2021 134* 136 - 144 mmol/L Final ??? POTASSIUM 01/16/2021 3.9 3.5 - 5.1 mmol/L Final ??? CHLORIDE 01/16/2021 96* 100 - 110 mmol/L Final ??? CO2, VENOUS 01/16/2021 27 22 - 32 mmol/L Final ??? ANION GAP 01/16/2021 14.9 8.0 - 20.0 mmol/L Final ??? GLUCOSE 01/16/2021 106* 70 - 99 mg/dL Final ??? BUN 01/16/2021 8 6 - 20 mg/dL Final ??? CREATININE, BLOOD 01/16/2021 0.93 0.80 - 1.30 mg/dL Final ??? BUN/CREATININE RATIO 01/16/2021 9* 12 - 20 ratio Final ??? TOTAL PROTEIN 01/16/2021 8.1 6.0 - 8.3 g/dL Final ??? ALBUMIN 01/16/2021 4.4 3.5 - 5.2 g/dL Final The colormetric methods used for the determination of Albumin may lead to falsely elevated test results in patients suffering from renal failure or insufficiency due to interference with other proteins. ??? A/G RATIO 01/16/2021 1.2 1.0 - 2.0 Final ??? CALCIUM 01/16/2021 9.6 8.9 - 10.3 mg/dL Final ? ? T BILI 01/16/2021 0.5 <=1.2 mg/dL Final ? ? SGOT (AST) 01/16/2021 22 <=40 U/L Final ? ? SGPT (ALT) 01/16/2021 30 <=41 U/L Final ??? ALKALINE PHOSPHATASE 01/16/2021 80 40 - 130 U/L Final ? ? GFR, EST. NONAFRICAN 01/16/2021 >60 >=60 Final ? ? GFR, EST. 01/16/2021 >60 >=60 Final Creatinine Clearance is the preferred criteria for selecting drug dose adjustments in renally impaired patients. The GFR is provided as additional pertinent clinical information. GFR is reported in mL/min/1.73 sq m. ??? WBC 01/16/2021 17.38* 4.00 - 12.00 10(3)/mcL Final ??? RBC 01/16/2021 5.08 4.40 - 5.80 10(6)/mcL Final ??? HEMOGLOBIN (HGB) 01/16/2021 15.1 13.0 - 16.5 g/dL Final ??? HEMATOCRIT (HCT) 01/16/2021 43.5 38.0 - 50.0 % Final ??? MCV 01/16/2021 85.6 82.0 - 96.0 fL Final ??? MCH 01/16/2021 29.7 26.0 - 32.0 pg Final ??? MCHC 01/16/2021 34.7 31.0 - 36.0 g/dL Final ??? PLATELET COUNT 01/16/2021 235 140 - 440 10(3)/mcL Final ??? RDW 01/16/2021 13.2 11.8 - 15.5 % Final ??? MPV 01/16/2021 10.5 8.0 - 12.6 fL Final ??? NEUTROPHILS 01/16/2021 81.7* 40.0 - 68.0 % Final ??? LYMPHOCYTES 01/16/2021 11.0* 19.0 - 49.0 % Final ??? MONOCYTES 01/16/2021 6.8 3.0 - 13.0 % Final ??? EOSINOPHILS 01/16/2021 0.3 0.0 - 8.0 % Final ??? BASOPHILS 01/16/2021 0.2 0.0 - 1.0 % Final ??? ABSOLUTE NEUTROPHILS 01/16/2021 14.19* 1.40 - 5.30 10(3)/mcL Final ??? ABSOLUTE LYMPHOCYTES 01/16/2021 1.92 0.90 - 3.30 10(3)/mcL Final ??? ABSOLUTE MONOCYTES 01/16/2021 1.18* 0.10 - 0.90 10(3)/mcL Final ??? ABSOLUTE EOSINOPHIL 01/16/2021 0.05 0.00 - 0.50 10(3)/mcL Final ??? ABSOLUTE BASOPHILS 01/16/2021 0.04 0.00 - 0.10 10(3)/mcL Final ??? NRBC PER 100 WBC 01/16/2021 0 Final ??? PROTIME-PATIENT 01/16/2021 13.5 11.6 - 14.8 sec Final ??? INR 01/16/2021 1.1 0.9 - 1.2 Final Therapeutic Ranges INR = 2.0-3.0: Venous thromb, atrial fib, pul embolism, tissue heart valve, ami. INR = 2.5-3.5: Mechanical heart valve Critical value for INR is >/= 4.5 ??? ABO TYPING 01/16/2021 O Final ??? RH 01/16/2021 Negative Final ??? ABSC 01/16/2021 Negative Final ??? LIPASE 01/16/2021 29.1 13 - 60 U/L Final ? ? ETHANOL 01/16/2021 10 <11 mg/dL Final CT ABDOMEN PELVIS W/ CONTRAST Result Date: 01/16/2021 IMPRESSION: 1. Colonic diverticulosis with wall and [...] diagnostic consideration is a side branch IPMN. The patient remained stable throughout their ED stay. My clinical impression was discussed with thepatient/family. Labs and radiology results were reviewed with them. I gave them the opportunity to ask questions, and addressed them as completely as possible given the information available at present. The therapeutic plan was discussed, advised to take medications as instructed, instructions weregiven and the importance of primary care follow up was stressed and encouraged. The patient/family voiced understanding of the plan, indications to return, and the need for follow up. DX: ACUTE DIVERTICULITIS HEMATEMESIS LEUKOCYTOSIS * Pratibha Redman RN - 01/16/2021 12:55 PM CDT Patient presents to ED room 8. No change in patients condition since being seen in triage. See triage note. Assessment as noted. Call light within reach. Will continue to monitor. * Marisa Mason RN - 01/16/2021 12:14 PM CDT Pt to ED with c/o abdominal pain since Saturday. Reports he started to see blood in his stool Saturday. Denies blood in his stool today. Reports N/V with chunks of blood today. documented in this encounter Plan of Treatment Upcoming Encounters Date Type Department Care Team (Late st Contact Info) Description 11/26/2024 1:45 PM CDT Office Visit [facility] [address] [place] [address] Bj Tatum MD #[address] [id number] documented as of this encounter Procedures Procedure Name Priority Date/Time Associated Diagnosis Comments CT ABDOMEN PELVIS W/ CONTRAST STAT 01/16/2021 2:49 PM CDT EXTRA TUBES STAT 01/16/2021 1:28 PM CDT GOLD TOP TUBE STAT 01/16/2021 1:28 PM CDT CBC WITH AUTO DIFFERENTIAL STAT 01/16/2021 1:28 PM CDT TYPE & SCREEN (CROSSMATCH CONVERTIBLE) STAT 01/16/2021 1:28 PM CDT PROTIME (PT) (PROTHROMBIN TIME) STAT 01/16/2021 1:28 PM CDT LIPASE STAT 01/16/2021 1:28 PM CDT ETHYL ALCOHOL (ETHANOL) STAT 01/16/2021 1:28 PM CDT CMP (COMPREHENSIVE METABOLIC PANEL) STAT 01/16/2021 1:28 PM CDT COMPLETE BLOOD COUNT (CBC) WITH DIFF STAT 01/16/2021 1:28 PM CDT documented in this encounter Results * CT ABDOMEN PELVIS W/ CONTRAST (01/16/2021 2:49 PM CDT) Anatomical Region Laterality Modality Abdomen N/A Computed Tomogra phy 01/16/2021 3:12 PM CDT Impressions 01/16/2021 3:15 PM CDT IMPRESSION: ?? 1. ??Colonic diverticulosis with wall and fat stranding along the cecum and proximal right colon suspicious for acute diverticulitis. ?? No free air or soft tissue abscess identified. ??Mild adjacent right lower quadrant mesenteric lymphadenopathy. ??Given the wall thickening and mild adjacent lymphadenopathy, follow-up with colonoscopy is recommended to exclude underlying mass. 2. ??6 mm low-attenuation lesion along the uncinate process of the pancreas. ??Recommend follow-up with nonemergent pancreas protocol MRI. ??A leading differential diagnostic consideration is a side branch IPMN. Narrative 01/16/2021 3:15 PM CDT EXAM DESCRIPTION: ?? CT ABDOMEN PELVIS W/ CONTRAST REASON FOR STUDY: ?? Abdominal pain with hematochezia and hematemesis for 3 days. TECHNIQUE: ??CT scan of the abdomen and pelvis performed with intravenous and ??without oral contrast using helical scanning technique with dynamic intravenous contrast injection. Reconstructed coronal and sagittal MPR images reviewed. All images stored on PACS. Automated exposure control was used as a dose optimization technique for this examination. CONTRAST TYPE/DOSE: ?? 120 mL Isovue 370 injected via ??right antecubital COMPARISON: ?? 09/21/2016 FINDINGS: ??LOWER CHEST: ??No consolidation or pleural effusion. LIVER: ??No focal liver lesions identified. GALLBLADDER: ??No stones identified. No wall thickening or inflammatory changes. BILE DUCTS: ??No intrahepatic or extrahepatic ductal dilatation. SPLEEN: ??Normal size. ??No focal lesions. PANCREAS: ??6 mm low-attenuation lesion along the uncinate process of the pancreas axial image 74. ??There may be an additional sub 5 mm low-attenuation lesion adjacent to it. ??No pancreatic ductal dilatation. ??No peripancreatic fat stranding. ADRENALS: ??Normal. KIDNEYS/URINARY TRACT: ??Symmetric enhancement of the kidneys. ??No hydronephrosis or hydroureter. ??2 mm nonobstructive right renal calculus. ??Urinary bladder is unremarkable. GI: ??Colonic diverticulosis. ??Focal wall thickening along the cecum and proximal right: Adjacent to a diverticulum, suspicious for acute diverticulitis. ??There is adjacent mesenteric fat stranding and fluid. ??There is mild adjacent right lower quadrant mesenteric lymphadenopathy. ??No evidence of small-bowel obstruction. ??Appendix is normal. PERITONEUM: ??No free air identified. RETROPERITONEUM: ??Prominent right lower quadrant mesenteric lymph nodes. REPRODUCTIVE: ??Unremarkable VASCULATURE: ??No abdominal aortic aneurysm. MUSCULOSKELETAL: ??No acute fracture identified. THIS IS AN ELECTRONICALLY VERIFIED FINAL REPORT 01/16/2021 3:12 PM - Electronically signed by Aldo Simpson M.D. LUCIEN: LUCIEN D: ??01/16/2021 3:12 PM T: ??01/16/2021 3:12 PM Report ID: [id number] Reading Location: ??[id number] Procedure Note Aldo Simpson MD - 01/16/2021 EXAM DESCRIPTION: CT ABDOMEN PELVIS W/ CONTRAST [...] Aldo Simpson M.D. LUCIEN: LUCIEN Report ID: [id number] Reading Location: [id number] IMPRESSION: 1. Colonic diverticulosis with wall and [...] diagnostic consideration is a side branch IPMN. us Jay Ellis MD IMG CT ORDERABLES Final Re sult * Gold Top Tube (01/16/2021 1:28 PM CDT) Blood Venous Catheter (IV) / Unknown 01/16/2021 1:28 PM CDT 01/16/2021 1:46 PM CDT Jay Ellis MD CHEMISTRY ORDERABLES Final Result Performing Organization Address City/[facility]/ZIP Co de Phone Number [facility] [address] [place] [address] * Ethyl Alcohol(Ethanol) [id number] (01/16/2021 1:28 PM CDT) ETHANOL 10 <11 mg/dL 01/16/2021 2:0 5 PM CDT [facility] Blood Venous Catheter (IV) / Unknown 01/16/2021 1:28 PM CDT 01/16/2021 1:36 PM CDT Jay Ellis MD CHEMISTRY ORDERABLES Final Result Performing Organization Address City/[facility]/ZIP Co de Phone Number [facility] [address] [place] [address] * Lipase [id number] (01/16/2021 1:28 PM CDT) LIPASE 29.1 13 - 60 U/L 01/16/2021 2:05 PM CDT [facility] Blood Venous Catheter (IV) / Unknown 01/16/2021 1:28 PM CDT 01/16/2021 1:36 PM CDT Jay Ellis MD CHEMISTRY ORDERABLES Final Result Performing Organization Address City/[facility]/ZIP Co de Phone Number [facility] [address] [place] [address] * TYPE & SCREEN (CROSSMATCH CONVERTIBLE) (01/16/2021 1:28 PM CDT) Pathologist [facility] ABO TYPING O 01/16/2021 2:44 PM CDT [facility] RH Negative 01/16/2021 2:44 PM CDT [facility] ABSC Negative 01/16/2021 2:44 PM CDT [facility] Blood Venous Catheter (IV) / Unknown 01/16/2021 1:28 PM CDT 01/16/2021 1:37 PM CDT Jay Ellis MD BLOOD BANK ORDERABLES Edit ed Result - Final [facility] #[address] [place] [address] * Protime (PT or Prothrombin Time) [id number] (01/16/2021 1:28 PM CDT) Pathologist [facility] PROTIME-PATIENT 13.5 11.6 - 14.8 sec 01/16/2021 1:55 PM CDT [facility] INR 1.1 0.9 - 1.2 01/16/2021 1:55 PM CDT [facility] Comment: Therapeutic Ranges INR = 2.0-3.0: Venous thromb, atrial fib, pul embolism, tissue heart valve, ami. INR = 2.5-3.5: Mechanical heart valve Critical value for INR is >/= 4.5 Blood Venous Catheter (IV) / Unknown 01/16/2021 1:28 PM CDT 01/16/2021 1:42 PM CDT Jay Ellis MD HEMATOLOGY ORDERABLES Kadi l Result [facility] [address] [place] [address] * (ABNORMAL) CBC with Auto Differential (01/16/2021 1:28 PM CDT) [facility] WBC 17.38(H) 4.00 - 12.00 10(3)/mcL 01/16/2021 1:41 PM CDT [facility] RBC 5.08 4.40 - 5.80 10(6)/[facility] 01/16/2021 1:41 PM CDT [facility] HEMOGLOBIN (HGB) 15.1 13.0 - 16.5 g/dL 01/16/2021 1:41 PM CDT [facility] HEMATOCRIT (HCT) 43.5 38.0 - 50.0 % 01/16/2021 1:41 PM CDT [facility] MCV 85.6 82.0 - 96.0 fL 01/16/2021 1:41 PM CDT [facility] MCH 29.7 26.0 - 32.0 pg 01/16/2021 1:41 PM CDT [facility] MCHC 34.7 31.0 - 36.0 g/dL 01/16/2021 1:41 PM [facility] PLATELET COUNT 235 140 - 440 10(3)/[facility] 01/16/2021 1:41 PM CDT [facility] RDW 13.2 11.8 - 15.5 % 01/16/2021 1:41 PM CDT [facility] MPV 10.5 8.0 - 12.6 fL 01/16/2021 1:41 PM [facility] NEUTROPHILS 81.7(H) 40.0 - 68.0 % 01/16/2021 1:41 PM CDT [facility] LYMPHOCYTES 11.0(L) 19.0 - 49.0 % 01/16/2021 1:41 PM CDT [facility] MONOCYTES 6.8 3.0 - 13.0 % 01/16/2021 1:41 PM CDT [facility] EOSINOPHILS 0.3 0.0 - 8.0 % 01/16/2021 1:41 PM CDT [facility] BASOPHILS 0.2 0.0 - 1.0 % 01/16/2021 1:41 PM CDT [facility] ABSOLUTE NEUTROPHILS 14.19(H) 1.40 - 5.30 10(3)/mcL 01/16/2021 1:41 PM CDT [facility] ABSOLUTE LYMPHOCYTES 1.92 0.90 - 3.30 10(3)/[facility] 01/16/2021 1:41 PM CDT [facility] ABSOLUTE MONOCYTES 1.18(H) 0.10 - 0.90 10(3)/[facility] 01/16/2021 1:41 PM CDT [facility] ABSOLUTE EOSINOPHIL 0.05 0.00 - 0.50 10(3)/[facility] 01/16/2021 1:41 PM CDT [facility] ABSOLUTE BASOPHILS 0.04 0.00 - 0.10 10(3)/[facility] 01/16/2021 1:41 PM CDT [facility] NRBC PER 100 WBC 0 01/17/20 1:41 PM CDT [facility] Blood Venous Catheter (IV) / Unknown 01/16/2021 1:28 PM CDT 01/16/2021 1:36 PM CDT us Jay Ellis MD HEMATOLOGY ORDERABLES Kadi llamas Result [facility] [address] [place] [address] * (ABNORMAL) Comprehensive Metabolic Panel (Cmp) [id number] (01/16/2021 1:28 PM CDT) SODIUM 134(L) 136 - 144 mmol/L 01/16/2021 2:12 PM CDT [facility] POTASSIUM 3.9 3.5 - 5.1 mmol/L 01/16/2021 2:12 PM CDT [facility] CHLORIDE 96(L) 100 - 110 mmol/L 01/16/2021 2:12 PM CDT [facility] CO2, VENOUS 27 22 - 32 mmol/L 01/16/2021 2:12 PM CDT [facility] ANION GAP 14.9 8.0 - 20.0 mmol/L 01/16/2021 2:12 PM CDT [facility] GLUCOSE 106(H) 70 - 99 mg/dL 01/16/2021 2:12 PM CDT [facility] BUN 8 6 - 20 mg/dL 01/16/2021 2:12 PM CDT [facility] CREATININE, BLOOD 0.93 0.80 - 1.30 mg/dL 01/16/2021 2:12 PM CDT [facility] BUN/CREATININE RATIO 9(L) 12 - 20 ratio 01/16/2021 2:12 PM CDT [facility] TOTAL PROTEIN 8.1 6.0 - 8.3 g/dL 01/16/2021 2:12 PM CDT [facility] ALBUMIN 4.4 3.5 - 5.2 g/dL 01/16/2021 2:12 PM CDT [facility] Comment: The colormetric methods used for the determination of Albumin may lead to falsely elevated test results in patients suffering from renal failure or insufficiency due to interference with other proteins. A/G RATIO 1.2 1.0 - 2.0 01/16/2021 2:12 PM CDT [facility] CALCIUM 9.6 8.9 - 10.3 mg/dL 01/16/2021 2:12 PM CDT [facility] T BILI 0.5 <=1.2 mg/dL 01/16/2021 2:12 PM CDT [facility] SGOT (AST) 22 <=40 U/L 01/16/2021 2:12 PM CDT [facility] SGPT (ALT) 30 <=41 U/L 01/16/2021 2:12 PM CDT [facility] ALKALINE PHOSPHATASE 80 40 - 130 U/L 01/16/2021 2:12 PM CDT [facility] GFR, EST. NONAFRICAN >60 >=60 01/16/2021 2:12 PM CDT [facility] GFR, EST. >60 >=60 021 2:12 PM CDT [facility] Comment: Creatinine Clearance is the preferred criteria for selecting drug dose adjustments in renally impaired patients. ??The GFR is provided as additional pertinent clinical information. GFR is reported in mL/min/1.73 sq m. Blood Venous Catheter (IV) / Unknown 01/16/2021 1:28 PM CDT 01/16/2021 1:36 PM CDT us Jay Ellis MD CHEMISTRY ORDERABLES Final Result [facility] [address] [place] [address] documented in this encounter Visit Diagnoses Diagnosis Acute diverticulitis- Primary Hematemesis Leukocytosis Leukocytosis, unspecified Rectal bleeding Hemorrhage of rectum and anus documented in this encounter Administered Medications Inactive Administered Medications - up to 3 most recent administrations Medication Order MAR Action Action Date Dose Rate Site amoxicillin-clavulanate (AUGMENTIN) 875-125 MG per tablet 1 Tablet 1 Tablet, Oral, ONCE, 1 dose, On Sat01/16/21 at 1630, If unable to swallow, may crush., Indications: Intra-Abdominal InfectionIndications:Intra-Abdomi nal Infection Given 01/16/2021 4:07 PM CDT 1 Tablet GI Cocktail 30 mL, Oral, ONCE, 1 dose, On Sat01/16/21 at 1400 Given 01/16/2021 1:53 PM CDT 30 mL iopamidol (ISOVUE-370) 76 % injection 120 mL 120 mL, Intravenous, ONCE, 1 dose, On Sat01/16/21 at 1500 Given 01/16/2021 2:46 PM CDT 120 mL pantoprazole (PROTONIX) injection 40 mg 40 mg, Intravenous, ONCE, 1 dose, On Sat01/16/21 at 1330, Administer over 3 Minutes, Indications: Symptomatic Gastroesophageal Reflux DiseaseIndications:Symptomatic Gastroesophageal Reflux Disease Given 01/16/2021 1:36 PM CDT 40 mg documented in this encounter Active and Recently Administered Medications Times are shown in CDT. Scheduled Medication Order 01/14/2021 01/15/2021 01/16/2021 amoxicillin-clavulanate (AUGMENTIN) 875-125 MG per tablet 1 Tablet (COMPLETED) 1 Tablet, Oral, ONCE, 1 dose, On Sat01/16/21 at 1630, If unable to swallow, may crush., Indications: Intra-Abdominal Infection 1607 (Given - Provid er: Edgardo Cooley RN) GI Cocktail (COMPLETED) 30 mL, Oral, ONCE, 1 dose, On Sat01/16/21 at 1400 1353 (Given - Provid er: Pratibha Redman RN) iopamidol (ISOVUE-370) 76 % injection 120 mL (COMPLETED) 120 mL, Intravenous, ONCE, 1 dose, On Sat01/16/21 at 1500 1446 (Given - Provid er: Parul Obregon, RT(R) (CT)) pantoprazole (PROTONIX) injection 40 mg (COMPLETED) 40 mg, Intravenous, ONCE, 1 dose, On Sat01/16/21 at 1330, Administer over 3 Minutes, Indications: Symptomatic Gastroesophageal Reflux Disease 1336 (Given - Provid er: Pratibha Redman RN) documented in this encounter Additional Health Concerns Assessment Noted Time PHQ-9 Depression Total Score: 0 05/05/20 19 3:00 PM ACCOUNTANT CONTROLLER documented as of this encounter Care Teams Mainframe Programmer Relationship Specialty Start Date End Date Bj Tatum MD #[address] [address] PCP - General Family Medicine 05/31/15 documented as of this encounter
--- OUTSIDE RECORDS SUMMARY | 2024-06-27 19:50 | XMS_ITS | Encounter Summary ---
Author Organization [facility] Address [address] [place] [address] Phone Care Team Providers Care Unit Educator Name Role Phone Bj Tatum MD Primary Care Provider [phone] Jonas Marte MD Unavailable Reason for Visit * Reason Comments New Patient Skin Lesion Of buttock area * Consult, Test & Initiate Treatment (Routine) - Closed Specialty Diagnoses / Procedures Referred By Ferny solis Referred To Contact Diagnoses Skin lesion Bk Mendoza APRN, ASSISTANT DIRECTOR OF SECURITY #[address] [address] Phone: tel: fax: [facility] [address] [address] Phone: tel: fax: Referral ID Status Reason Start Date Expiration Date Visits Re quested Visits Authorized [id number] Closed 11/28/2023 1 1 Encounter Details Date Type Department Care Team (Late st Contact Info) Description 12/26/2023 2:00 PM CDT Office Visit [facility] #[address] [address] Bk Mendoza APRN, ASSISTANT DIRECTOR OF SECURITY #2 [facility] [address] [place] [address] Jonas Marte MD #2 [facility] [address] [place] [address] Hidradenitis suppurativa of anus Discharge Disposition: Discharged to home or Selfcare [...] Sign Reading Time Taken Comments Blood Pressure 124/84 12/26/2023 2:05 PM CDT Pulse 81 12/26/2023 2:05 PM CDT Temperature 36.9 ??C (98.4 ??F) 12/26/2023 2:05 PM CD T Respiratory Rate - - Oxygen Saturation 99% 12/26/2023 2:05 PM CDT Inhaled Oxygen Concentration - - Weight 105.7 kg (233 lb) 12/26/2023 2:05 PM CDT Height 185.4 cm (6' 1 ) 12/26/2023 2:05 PM CDT Body Mass Index 30.74 12/26/2023 2:05 PM CDT documented in this encounter Progress Notes * Jonas Marte MD - 12/26/2023 2:00 PM CDT HISTORY AND PHYSICAL Assessment: Hidradenitis of the perianal skin PLAN: Pathophysiology of hidradenitis was discussed with him in detail. This is a chronic infection of the sweat glands, it most commonly affects the neck, armpits, and the groin/anal areas. Talked to him about not overdoing the hygiene. I think using Hibiclens is too much. Just regular soap and water, and just keep it clean. No need to over clean. Okay to take 2 showers a day. If these things do flareup, I will be more than happy to write him some antibiotics. If they do get bigger, I am more than happy to drain these. The best thing he did was to quit smoking. He now needs to quit shaving as well as quit the marijuana. Thank you for allowing me to participate in his care Subjective: HPI: Zachary Capps is a 43 y.o. male who I was asked to see by Bk Mendoza for skin lesion of the anus. He has had pilonidal cyst done in the past. He is wondering about new lesions around the anus. He takes care of his skin by washing himself and Hibiclens and making sure everything is clean and dry. He sometimes I think does too much and over does the hygiene. He does shave his armpits and some other areas. He has quit smoking but he still does marijuana. Has quit drinking hard liquor and beer but still has a glass of wine here and there. He just wants to figure out what is going on with the anal area. Right now is not too bad but sometimes he will be drainage and swelling and pain. I told him I willtake a look at him and see what it is. Patient Active Problem List Diagnosis Date Noted Hyperlipidemia 07/25/2022 Toe pain, left 07/10/2022 Noncompliance 07/10/2022 Lesion of pancreas 08/28/2021 Adult acne 08/28/2021 Leukocytosis 08/28/2021 Obesity (BMI 30-39.9) 08/28/2021 Hepatic steatosis 06/17/2019 Hyperglycemia 12/03/2016 Rectal bleeding 09/14/2016 Family history of colon cancer 09/14/2016 Ex-smoker 09/14/2016 Elevated liver enzymes 09/14/2016 Hematuria 09/14/2016 History of substance abuse (HCC) 09/14/2016 Hidradenitis suppurativa No Known Allergies Cannot display prior to admission medications because the patient has not been admitted in this contact. Current Outpatient Medications on File Prior to Visit Medication Sig Dispense Refill MAGNESIUM LACTATE PO Take by mouth. POTASSIUM CHLORIDE PO Take by mouth. Turmeric (QC TUMERIC COMPLEX PO) Take 1,000 mg by mouth. VITAMIN D PO Take by mouth daily. No current facility-administered medications on file prior to visit. Past Medical History Positives Diagnosis Date Polyp of colon Past Surgical History: Procedure Laterality Date COLONOSCOPY COLONOSCOPY N/A 03/03/2021 Procedure: COLONOSCOPY -TICS, SPASTIC COLON, HEMORRHOIDS; Surgeon: William Overton MD; Location:[facility]; Service: Gastroenterology CYST REMOVAL 10/2010 pilonidal cyst CYST REMOVAL OTHER SURGICAL HISTORY excision for perianal hidradenitis UPPER GASTROINTESTINAL ENDOSCOPY N/A 03/03/2021 Procedure: EGD - SUPERFICIAL DUODENAL ULCER, ANTRAL BIOPSIES, HIATAL HERNIA; Surgeon: William Overton MD; Location: [facility]; Service: Gastroenterology WISDOM TOOTH EXTRACTION Family History Problem Relation Age of Onset Diabetes Mother Hypertension Mother Cancer Father esophageal, stomach Diabetes Maternal Grandmother Heart Attack Maternal Grandfather No Known Problems Paternal Grandmother No Known Problems Paternal Grandfather Social History Socioeconomic History Marital status: Single Spouse name: Not on file Number of children: Not on file Years of education: Not on file Highest education level: Not on file Occupational History Not on file Tobacco Use Smoking status: Former Current packs/day: 0.00 Average packs/day: 1 pack/day for 21.0 years (21.0 ttl pk-yrs) Types: Cigarettes Start date: 07/17/1995 Quit date: 07/17/2016 Years since quittin.4 Smokeless tobacco: Never Vaping Use Vaping status: Former Substance and Sexual Activity Alcohol use: Not Currently Alcohol/week: 4.2 oz Types: 7 Glasses of wine per week Comment: quit liquor and beer in 2021 Drug use: Yes Types: Marijuana Comment: Daily Sexual activity: Yes Partners: Female Other Topics Concern Not on file Social History Narrative Not on file Social Determinants of Health Financial Resource Needs: Not on file Food Insecurity Needs: Not on file Transportation Needs: Not on file Physical Activity: Not on file Stress: Not on file Social Integration: Not on file Intimate Partner Violence: Not on file Housing Stability: Not on file No results found for this or any previous visit from the past 365 days. No results found for this or any previous visit from the past 365 days. No results found for this or any previous visit from the past 365 days. Review of Systems: Review of Systems Constitutional: Negative. HENT: Negative. Eyes: Negative. Respiratory: Negative. Cardiovascular: Negative. Gastrointestinal: Negative. As per HPI Genitourinary: Negative. Musculoskeletal: Negative. Skin: As per HPI Neurological: Negative. Endo/Heme/Allergies: Negative. Psychiatric/Behavioral: Positive for substance abuse. All other systems reviewed and are negative. Pertinent items are noted in HPI. All other systems were reviewed and were negative. Objective: VITALS: BP 124/84 (BP Location: Left Arm, BP Position: Sitting, BP Cuff Size: Regular) Pulse 81 Temp 98.4 ??F (36.9 ??C) (Temporal) Ht 6' 1 (1.854 m) Wt 233 lb (105.7 kg) SpO2 99% BMI 30.74 kg/m?? Physical Exam Vitals and nursing note reviewed. Constitutional: Appearance: Normal appearance. HENT: Head: Normocephalic and atraumatic. Right Ear: External ear normal. Left Ear: External ear normal. Nose: Nose normal. Mouth/Throat: Mouth: Mucous membranes are moist. Pharynx: Oropharynx is clear. Eyes: Extraocular Movements: Extraocular movements intact. Conjunctiva/sclera: Conjunctivae normal. Pupils: Pupils are equal, round, and reactive to light. Neck: Thyroid: No thyromegaly. Cardiovascular: Rate and Rhythm: Normal rate and regular rhythm. Heart sounds: Normal heart sounds. Pulmonary: Effort: Pulmonary effort is normal. No respiratory distress. Breath sounds: Normal breath sounds. Abdominal: General: Bowel sounds are normal. There is no distension. Palpations: Abdomen is soft. Tenderness: There is no abdominal tenderness. Hernia: No hernia is present. 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 In the left and right anterior quadrants, there was hidradenitis. Some small 3 mm wounds that are open, no active drainage. Definitely hidradenitis but nosign of perirectal abscess. Musculoskeletal: General: No deformity. Normal range of motion. Cervical back: Normal range of motion and neck supple. Skin: General: Skin is warm and dry. Capillary Refill: Capillary refill takes less than 2 seconds. Findings: No rash. Neurological: General: No focal deficit present. Mental Status: He is alert and oriented to person, place, and time. Coordination: Coordination is intact. Gait: Gait is intact. Psychiatric: Mood and Affect: Mood and affect normal. Behavior: Behavior normal. Thought Content: Thought content normal. Cognition and Memory: Memory normal. Judgment: Judgment normal. Data Review: Lab Results Component Value Date WBC 13.46 (H) 11/28/2023 HEMOGLOBIN 13.6 11/28/2023 HEMATOCRIT 38.4 11/28/2023 PLATELETCNT 298 11/28/2023 MCV 83.3 11/28/2023 Lab Results Component Value Date SODIUM 140 11/28/2023 POTASSIUM 3.9 11/28/2023 CHLORIDE 104 11/28/2023 CO2VEN 26 11/28/2023 ANIONGAP 13.9 11/28/2023 GLUCOSE 89 11/28/2023 BUN 11 11/28/2023 CREATININE 1.12 11/28/2023 BCRATIO8 10 (L) 11/28/2023 TOTALPROTEIN 8.4 (H) 11/28/2023 ALBUMIN 4.4 11/28/2023 CALCIUM 9.5 11/28/2023 TBIL 0.3 11/28/2023 SGOTAST 35 (H) 11/28/2023 SGPTALT 48 11/28/2023 ALKALINEPHO 93 11/28/2023 GFRNA >60 11/28/2023 GFRA >60 11/28/2023 Lab Results Component Value Date INR 1.0 11/28/2023 PTP 13.4 11/28/2023 I personally reviewed the above labs and radiological studies (images if available and reports), and agree with the radiologist unless stated above. This note was dictated using [employer] fluency dictation system and there may be errors in combat rifle crewmember. Despite proof reading the note, there may be mistakes and I apologize for those. By: Jonas Marte MD, 12/26/2023, 2:32 PM CDT Primary Care Physician: Bj Tatum MD documented in this encounter Plan of Treatment Upcoming Encounters Date Type Department Care Team (Late st Contact Info) Description 11/26/2024 1:45 PM CDT Office Visit [facility] #[address] [place] [address] Bj Tatum MD #2 [facility] [address] [place] [address] documented as of this encounter Visit Diagnoses Diagnosis Hidradenitis suppurativa of anus Hidradenitis documented in this encounter Additional Health Concerns Assessment Noted Time PHQ-9 Depression Total Score: 0 05/05/20 19 3:00 PM [place] documented as of this encounter Care Teams Unit Educator Relationship Specialty Start Date End Date Bj Tatum MD #2 [facility] [address] [place] [address] PCP - General Family Medicine 05/31/15 Jonas Marte MD #2 [facility] [address] [place] [address] Consulting Physician Colon and Rectal Surgery 12/20/23 documented as of this encounter
--- OUTSIDE RECORDS SUMMARY | 2024-06-27 19:50 | XMS_ITS | Encounter Summary ---
Author Organization [facility] [employer] Care Team Providers Care Ceramic Restorer Name Role Phone Bj Tatum MD Primary Care Provider [phone] Encounter Details Date Type Department Care Team (Latest Contact Info) Description 08/28/2021 Travel Social History Tobacco Use Types Packs/Day [...] COVID-19? 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 documented as of this encounter Plan of Treatment Upcoming Encounters Date Type Department Care Team (Late st Contact Info) Description 11/26/2024 1:45 PM CDT Office Visit [facility] - Family [facility] [address] [place] [id number] Bj Tatum MD [address] [address] documented as of this encounter Visit Diagnoses Not on filedocumented in this encounter Additional Health Concerns Assessment Noted Time PHQ-9 Depression Total Score: 0 05/05/20 19 3:00 PM REFINERY OPERATOR LIGHT ENDS RECOVERY documented as of this encounter Care Teams Ceramic Restorer Relationship Specialty Start Date End Date Bj Tatum MD #[address] [address] PCP - General Family Medicine 05/31/15 documented as of this encounter
--- OUTSIDE RECORDS SUMMARY | 2024-06-27 19:50 | XMS_ITS | Encounter Summary ---
Author Organization [facility] Address [address] [place] [address] Phone Care Team Providers Care Nurse Consultant Name Role Phone Bj Tatum MD Primary Care Provider Reason for Visit * Reason Onset Date Comments Results 07/19/2022 Follow-up 07/23/2022 Encounter Details Date Type Department Care Team (Late st Contact Info) Description 07/19/2022 Telephone [facility] [address] [place] [address] Bj Tatum MD [address] [address] Results; Follow-up Social History Tobacco Use Types Packs/Day [...] Coronavirus/COVID-19? No / Unsure 07/13/2022 12:46 PM HERBARIUM CURATOR documented as of this encounter Miscellaneous Notes * Telephone Encounter - Debbie Ramos RN - 07/26/2022 8:07 AM CST Spoke with patient to give result note: Let him know the cholesterol is elevated. Liver enzymes and white blood count are back to normal. Other labs fine. Recheck fasting labs in 3 months. Orders entered. Thanks! ?? ARIUM CURATOR * Telephone Encounter - Bj Tatum MD - 07/25/2022 8:20 PM HERBARIUM CURATOR See result note. Thanks! ARIUM CURATOR * Telephone Encounter - Shellie Flower RN - 07/25/2022 2:00 PM CST Patient is calling office States he had labs completed on 07/13/2022 Patient is calling for his results This RN advised patient that his results are in but that his PCP has not reviewed his results yet and that a nurse would call him back with his results and PCP recommendation once his labs are reviewed Please advise Follow up with patient ARIUM CURATOR * Telephone Encounter - Jo Barron RN - 07/23/2022 3:07 PM CST Patient calling requesting lab results Please advise ARIUM CURATOR * Telephone Encounter - Rafia Luis RN - 07/19/2022 9:37 AM CST S: Lab results call B: Patient had labs drawn on 07/13/22 A: Results are in Epic R: Please advise as you see appropriate ARIUM CURATOR documented in this encounter Plan of Treatment Upcoming Encounters Date Type Department Care Team (Late st Contact Info) Description 11/26/2024 1:45 PM CDT Office Visit [facility] - Family [facility] [address] [place] [address] Bj Tatum MD #[address] [address] documented as of this encounter Visit Diagnoses Not on filedocumented in this encounter Additional Health Concerns Assessment Noted Time PHQ-9 Depression Total Score: 0 05/05/20 19 3:00 PM HERBARIUM CURATOR documented as of this encounter Care Teams Nurse Consultant Relationship Specialty Start Date End Date Bj Tatum MD #[address] [address] PCP - General Family Medicine 05/31/15 documented as of this encounter
--- OUTSIDE RECORDS SUMMARY | 2024-06-27 19:50 | XMS_ITS | Encounter Summary ---
Author Organization [facility] Address [address] [place] [address] Phone Care Team Providers Care Pulp Bleacher Name Role Phone Bj Tatum MD Primary Care Provider [phone] Reason for Visit * Reason Comments Toe Pain Encounter Details Date Type Department Care Team (Late st Contact Info) Description 07/10/2022 4:45 PM MUSEUM INFORMATICS SPECIALIST Telemedicine [facility] - Family [facility] [address] [place] [address] Bj Tatum MD #[address] [address] Toe pain, left (Primary Dx); Noncompliance Social History Tobacco Use Types Packs/Day Years [...] on file documented as of this encounter Progress Notes * Bj Tatum MD - 07/10/2022 4:45 PM CST Patient was assessed via telephone for a duration of 7 minutes. Patient verbally consented for thisservice to be performed and billed.The patient was at home. CC: L toe pain S: Went to Urgent Care in [place] a week ago. Toe was swollen and tender. Finished antibiotic and medication for gout (?). Has not had fasting labs or MRI ordered last year for pancreatic lesion done yet. O: Psych: alert & oriented. A/P: 1. L toe pain - improved. 2. Noncompliance - told him to get overdue fasting labs & MRI done. 3. F/U with me in 1 month. UM INFORMATICS SPECIALIST documented in this encounter Plan of Treatment Upcoming Encounters Date Type Department Care Team (Late st Contact Info) Description 11/26/2024 1:45 PM CDT Office Visit [facility] - Family Medicine [facility] [address] [place] [address] Bj Tatum MD #[address] [address] documented as of this encounter Results * URIC ACID (BLOOD ASSAY) (07/13/2022 12:57 PM MUSEUM INFORMATICS SPECIALIST) URIC ACID 4.8 3.4 - 7.0 mg/dL 07/13/2022 3:00 PM MUSEUM INFORMATICS SPECIALIST [facility] Blood Venipuncture / Unknown 07/13/2022 12:57 PM MUSEUM INFORMATICS SPECIALIST 07/13/2022 2:08 PM MUSEUM INFORMATICS SPECIALIST us Bj Tatum MD CHEMISTRY ORDERABLES Final Result [facility] [address] [place] [address] documented in this encounter Visit Diagnoses Diagnosis Toe pain, left- Primary Pain in limb Noncompliance Personal history of noncompliance with medical treatment, presenting hazards to health documented in this encounter Additional Health Concerns Assessment Noted Time PHQ-9 Depression Total Score: 0 05/05/20 19 3:00 PM MUSEUM INFORMATICS SPECIALIST documented as of this encounter Care Teams Pulp Bleacher Relationship Specialty Start Date End Date Bj Tatum MD [address] [place] [address] PCP - General Family Medicine 05/31/15 documented as of this encounter
--- OUTSIDE RECORDS SUMMARY | 2024-06-27 19:50 | XMS_ITS | Encounter Summary ---
Author Organization [facility] Care Team Providers Care Orthodontic Assistant Name Role Phone Bj Tatum MD Primary Care Provider [phone] Encounter Details Date Type Department Care Team (Latest Contact Info) Description 11/28/2023 Travel Social History Tobacco Use Types Packs/Day [...] on file documented as of this encounter Functional Status * Question Answer Date of Assessment Author Little interest or pleasure in doing things Not at all 11/28/2023 1:42 PM Breana Cormier CMA Feeling down, depressed, or hopeless Not at all 11/28/2023 1:42 PM Breana Cormier CMA * Over the past 2 weeks, how often have you been bothered by any of the following problems? Question Answer Date of Assessment Author Patient Health Questionnaire -2 Score 0 11/28/2023 1:42 PM Breana Cormier CMA documented as of this encounter Plan of Treatment Upcoming Encounters Date Type Department Care Team (Late st Contact Info) Description 11/26/2024 1:45 PM CDT Office Visit [facility] - Family Medicine - [place] [address] [place] [address] Bj Tatum MD #[address] [address] documented as of this encounter Visit Diagnoses Not on filedocumented in this encounter Additional Health Concerns Assessment Noted Time PHQ-9 Depression Total Score: 0 05/05/20 19 3:00 PM DAMPER MAKER documented as of this encounter Care Teams Orthodontic Assistant Relationship Specialty Start Date End Date Bj Tatum MD #[address] [address] PCP - General Family Medicine 05/31/15 documented as of this encounter
--- OUTSIDE RECORDS SUMMARY | 2024-06-27 19:50 | XMS_ITS | Encounter Summary ---
Author Organization [facility] Address [address] [place] [address] Phone Care Team Providers Care Salesperson Burial Plots Name Role Phone Bj Tatum MD Primary Care Provider [phone] Jonas Marte MD Unavailable Reason for Visit * Reason Onset Date Comments Care Management 01/16/2024 Encounter Details Date Type Department Care Team (Late st Contact Info) Description 01/16/2024 Telephone [facility] - General Surgery [facility] [address] [address] Jonas Marte MD #[address] [address] Care Management Social History Tobacco Use Types Packs/Day Years [...] encounter Miscellaneous Notes * Telephone Encounter - Jeanne Almonte RN - 01/16/2024 3:10 PM CDT Zachary stated he was seen per Dr. Marte on 12/26/23 for hidradenitis suppurativa of the anus. [place] that the area started to flare up on 01/13/24. He stated his pain is an 8.5 on a scale from1-10 with 10 being the worst. He denies taking any pain medications, denies taking Tylenol and/or Ibuprofen. He stated he can't take Ibuprofen due to previous ulcers. Zachary stated he is not having any drainage but there is pressure. He stated he is keeping it covered with a bandage. Patient uses [facility] in [place], [place]. Spoke with Dr. Marte who should be seen tomorrow for exam. Patient unable to come until 12:00 tomorrow, okayed per Dr. Marte, patient appointment scheduled. documented in this encounter Plan of Treatment Upcoming Encounters Date Type Department Care Team (Late st Contact Info) Description 11/26/2024 1:45 PM CDT Office Visit [facility] - Family Medicine [facility] [address] [place] [address] Bj Tatum MD #[address] [address] documented as of this encounter Visit Diagnoses Not on filedocumented in this encounter Additional Health Concerns Assessment Noted Time PHQ-9 Depression Total Score: 0 05/05/20 19 3:00 PM BAR WELDER documented as of this encounter Care Teams Salesperson Burial Plots Relationship Specialty Start Date End Date Bj Tatum MD #[address] [address] PCP - General Family Medicine 05/31/15 Jonas Marte MD [address] [address] Consulting Physician Colon and Rectal Surgery 12/20/23 documented as of this encounter
--- OUTSIDE RECORDS SUMMARY | 2024-06-27 19:50 | XMS_ITS | Encounter Summary ---
Author Organization [facility] Address [address] [place] [address] Phone Care Team Providers Care Tool Maintenance Worker Name Role Phone Bj Tatum MD Primary Care Provider [phone] Reason for Referral * Other (Routine) - Closed Specialty Diagnoses / Procedures Referred By Contac t Referred To Contact Gastroenterology Diagnoses BRBPR (bright red blood per rectum) Procedures GASTRO PROCEDURE Sharon Mitchell PAC [address] [place] [address] Phone: tel: fax: Referral ID Status Reason Start Date Expiration Date Visits Re quested Visits Authorized [id number] Closed 01/25/2021 1 1 * Other (Routine) - Closed Specialty Diagnoses / Procedures Referred By Contac t Referred To Contact Gastroenterology Diagnoses Hematemesis with nausea Procedures GASTRO PROCEDURE Sharon Mitchell PAC [address] [place] [address] Phone: tel: fax: William Overton MD Referral ID Status Reason Start Date Expiration Date Visits Re quested Visits Authorized [id number] Closed 01/25/2021 1 1 Reason for Visit * Reason Comments ED Follow-up Vomiting blood Rectal Bleeding Abdominal Pain Hx of ulcers Encounter Details Date Type Department Care Team (Latest Contact Info) Description 01/25/2021 11:00 AM CDT Office Visit [facility] - Gastroenterology [facility] [address] [place] [address] Sharon Mitchell PAC [address] [place] [address] Hematemesis with nausea (Primary Dx); Hepatic steatosis; Leukocytosis, unspecified type; BRBPR (bright red blood per rectum) Discharge Disposition: Discharged to home or Selfcare Social History Tobacco Use Types Packs/Day Years Used Date Smoking Tobacco: Former Cigarettes Q uit: 07/17/2016 Smokeless Tobacco: Never Tobacco Cessation:Counseling Given: No Alcohol Use Standard Drinks/Week Comments Yes 0 [...] Sign Reading Time Taken Comments Blood Pressure 140/78 01/25/2021 10:19 AM CDT Pulse 78 01/25/2021 10:19 AM CDT Temperature - - Respiratory Rate 20 01/25/2021 10:19 AM CDT Oxygen Saturation 93% 01/25/2021 10:19 AM CDT Inhaled Oxygen Concentration - - Weight 109.3 kg (241 lb) 01/25/2021 10:19 AM CDT Height 185.4 cm (6' 1 ) 01/25/2021 10:19 AM CDT Body Mass Index 31.8 01/25/2021 10:19 AM CDT documented in this encounter Patient Instructions * Patient Instructions* Sharon Mitchell Jada, PAC - 01/25/2021 11:00 AM CDT Images from the original note were not included. Await EGD and colonoscopy Return in about week for labs Continue current therapy Low-fat diet Weight loss- try eating several small meals a day consisting of lean protein and non- starchy vegetables (at least 3 x) and low sugar / high fiber fruits no more than twice Increase water to at least 64 ounces per day Exercise as tolerated Avoid alcohol Avoid frequent use of high-dose Tylenol/acetaminophen- do not exceed 3200 mg a day Ytxa-wyf-wewsoeb Vitamin-E 400 units daily Avoid eating 1-2 hours prior to bed May need to elevate head of bed approximately 45??. Avoid frequent/chronic use of NSAIDs such as ibuprofen/naproxen Avoid fried/ greasy/ spicy foods/ red sauces/ citrus especially in the evening Reduce caffeine/ carbonated beverages/alcohol/tobacco If you had lab work ordered at this visit, we will contact you regarding the results once all results have been received and reviewed. You may be able to see results in your my chart as they come in, please remember the computer is only given parameters for what is ???normal?? or ???abnormal?? .The significance of anything in the ???abnormal?? range is based on the remaining test results. Aga in we will contact you when we have received and reviewed all the results. Please arrive 15 minutes prior to all appointments Please schedule follow-up in near future to discuss any concerns that were not addressed fully at today's office visit. To continue to provide excellent patient care, you may receive a survey regarding your visit today.To help us serve you better, please complete and return. These surveys are completely anonymous. If you have any concerns/ questions regarding today's visit please call. Nonalcoholic Fatty Liver Disease (NAFLD) Nonalcoholic fatty liver disease (NAFLD) is a common disease of the liver. It occurs when you have too much fat in the liver. If NAFLD is severe, it can cause liver damage that seems like the damage caused by drinking too much alcohol. But NAFLD is not caused by drinking alcohol. This sheet tells you more about NAFLD and how it can be managed. How the liver works?? The liver is an organ??in the upper right side of the belly (abdomen). It has many important jobs. These include: ?? Breaking down (metabolizing) proteins, carbohydrates, and fats ?? Making a substance called bile that helps break down fats ?? Storing and releasing sugar (glucose) into the blood to give the body energy ?? Removing toxins from the blood ?? Helping with blood clotting Understanding NAFLD A healthy liver may contain some fat. But if too much fat builds up in the liver, this causes NAFLD. NAFLD can be mild, causing fatty liver. Or it can be more severe and have inflammation as well as excess fat. This can cause non- alcoholic steatohepatitis (LOREDO). ?? Fatty liver. With fatty liver, the liver simply has more fat than normal. This extra fat usuallydoes not harm the liver. ?? LOREDO. With LOREDO, the fatty liver becomes inflamed over time. LOREDO is serious because it can leadto scarring of the liver (fibrosis).??Over time, the scarring may lead to cirrhosis of the liver. This can eventually cause liver failure or liver cancer. Causes and risk factors of NAFLD Doctors don't know what causes NAFLD. But certain things??make the problem more likely to happen. These include: ?? Obesity ?? Prediabetes or diabetes ?? High levels of fat found in the blood (cholesterol and triglycerides) ?? Taking certain medicines? Having polycystic ovary syndrome (PCOS) Symptoms of NAFLD Most people with NAFLD have no symptoms. If symptoms do occur, they can include: ?? Tiredness ?? Weakness ?? Weight loss ?? Loss of appetite ?? Nausea and vomiting ?? Belly pain and cramping ?? Yellowing of the skin and eyes (jaundice) ?? Dark urine ?? Light-colored stools that look kaur ?? Swelling in the belly or legs Diagnosing NAFLD Your healthcare provider??may think you have NAFLD if routine blood tests show??high levels of liver enzymes. This may mean you have??a liver problem. You may need 1 or more imaging tests, such as anultrasound, CT, or MRI. You may need more??blood tests to look for other causes of liver disease.??You may also need a liver biopsy. During this test, a hollow needle is used to remove a tiny tissue sample from your liver. This tissue is then checked in a lab. This test can find signs of damage to liver tissue. It can also help figure out the cause of the damage and tell the difference between fatty liver and LOREDO. Treating NAFLD Treatment for NAFLD varies for each person. The best early treatment is to treat any conditions that are causing metabolic syndrome. This syndrome is a group of conditions that includes: ?? High blood pressure ?? High levels of cholesterol and triglycerides ?? Being overweight or obese ?? Diabetes Your healthcare provider will monitor your health and treat any symptoms or underlying health problems you have. Your provider will also work with you to control your risk factors. This will make liver??damage less likely. In fact, treating those underlying conditions can often improve liver disease.??You may need to take certain medicines, but no medicine will cure NAFLD. This is why treating the underlying conditions is most important. Your plan may include: ?? Losing excess weight ?? Getting regular exercise ?? Controlling diabetes ?? Controlling high cholesterol or triglyceride levels ?? Taking medicines and vitamins as prescribed by your provider ?? Not smoking ?? Not drinking alcohol ?? Eating a healthy diet Living with NAFLD If NAFLD is caught early, it can be managed with treatment. Your healthcare provider will discuss further treatment choices with you as needed. Be sure to ask your provider about recommended vaccines. These include vaccines for viruses that can cause liver disease. [email or web address] last reviewed this educational content on 08/01/2019 ?? [id number] [employer]. All rights reserved. This information is not [...] Bleeding along with feeling lightheaded or dizzy [place] last reviewed this educational content on 11/29/2018 ?? [phone] [employer]. All rights reserved. This information is not intended as a substitute for professional medical care. Always follow your healthcare professional's instructions. documented in this encounter Progress Notes * Sharon Mitchell PAC - 01/25/2021 11:00 AM CDT Images from the original note were not included. PROBLEM LIST: Patient Active Problem List Diagnosis ??? Hidradenitis suppurativa ??? Rectal bleeding ??? Family history of colon cancer ??? Ex-smoker ??? Elevated liver enzymes ??? Hematuria ??? History of substance abuse (HCC) ??? Hyperglycemia ??? Hepatic steatosis Zachary Capps is a . 41 y.o. male who presents with Chief Complaint Patient presents with ??? ED Follow-up ??? Vomiting blood ??? Rectal Bleeding ??? Abdominal Pain ??? Hx of ulcers . DIAGNOSIS, PLAN AND FOLLOW UP: Diagnoses and all orders for this visit: Hematemesis with nausea - HEPATIC FUNCTION PANEL; Future - HEPATITIS PANEL ACUTE (AHP); Future - BASIC METABOLIC PANEL W/ CALCIUM TOTAL; Future - COMPLETE BLOOD COUNT (CBC) WITH DIFF; Future - PROTIME (PT) (PROTHROMBIN TIME); Future - GASTRO PROCEDURE; Future Hepatic steatosis - HEPATIC FUNCTION PANEL; Future - HEPATITIS PANEL ACUTE (AHP); Future - BASIC METABOLIC PANEL W/ CALCIUM TOTAL; Future - COMPLETE BLOOD COUNT (CBC) WITH DIFF; Future - PROTIME (PT) (PROTHROMBIN TIME); Future Leukocytosis, unspecified type BRBPR (bright red blood per rectum) - GASTRO PROCEDURE; Future Other orders - VITAMIN D PO; Take by mouth. - APPLE CIDER VINEGAR PO; Take by mouth. - VITAMIN E PO; Take by mouth. - POTASSIUM CHLORIDE PO; Take by mouth. S: NPE. Referred by PCP for evaluation er follow up for BRBPR/ hematemesis. Stools occurred for a day or two after leaving ER. Denies any further hematemesis. Reports stomach had a lot of tightness. Currently feeling better- resumed Protonix. Does have a history of bleeding ulcers in the past. Reports chronic alcohol use 2-3 nightly for at least 12 years occasionally was up to a 6 pack. Just prior to ER visit had been celebrating his birthday and was drinking quite excessively. Does use marijuana on a regular basis. Currently reports normal appetite. Denies early satiety. Continues with some mild epigastric discomfort. Denies heartburn/ reflux/ nausea/ vomiting/other abdominal pain/ constipation/ diarrhea/ mucus or blood in stools/ toilet or on tissue. Denies black or tarry stools. Deniesweight loss/ malaise/ fatigue. Fm Hx father: esophageal cancer, tumor in his stomach,no other knowngi cancers. ALLERGIES: No Known Allergies MEDICATIONS: Current Outpatient Medications Medication Sig Dispense Refill ??? amoxicillin-clavulanate (Augmentin) 875-125 MG Tablet Take 1 Tablet by mouth 2 times daily for 10 days. 20 Tablet 0 ??? APPLE CIDER VINEGAR PO Take by mouth. ??? HYDROcodone-acetaminophen (NORCO) 5-325 MG Tablet Take [...] 0 ??? POTASSIUM CHLORIDE PO Take by mouth. ??? VITAMIN D PO Take by mouth. ??? VITAMIN E PO Take by mouth. No current facility-administered medications for this visit. PMS/H: Past Medical History Positives Diagnosis Date ??? Polyp of colon Past Surgical History: Procedure Laterality Date ??? COLONOSCOPY ??? CYST REMOVAL October 2010 pilonidal cyst ??? CYST REMOVAL ??? OTHER SURGICAL HISTORY excision for perianal hidradenitis SOCIAL: Social History Socioeconomic History ??? Marital status: Single Spouse name: Not on file ??? Number of children: Not on file ??? Years of education: Not on file ??? Highest education level: Not on file Occupational History ??? Not on file Tobacco Use ??? Smoking status: Former Smoker Quit date: 07/17/2016 Years since quittin.5 ??? Smokeless tobacco: Never Used Vaping Use ??? Vaping Use: Some days Substance and Sexual Activity ??? Alcohol use: Yes Comment: 2-3 beer daily ??? Drug use: Yes Types: Marijuana ??? Sexual activity: Yes Other Topics Concern ??? Not on file Social History Narrative ??? Not on file Social Determinants of Health Social determinant risk not applicable to this patient. FAMILY HX: Family History Problem Relation Age of Onset ??? Diabetes Mother ??? Hypertension Mother ??? Cancer Father VITAL SIGNS: Vitals: 01/25/21 1019 BP: 140/78 Pulse: 78 Resp: 20 SpO2: 93% Weight: 241 lb (109.3 kg) Height: 6' 1 (1.854 m) GENERAL EXAM: GENERAL: Well developed, well nourished, in no acute distress. AAO x3. Cooperative. HEENT: Normocephalic. PERRLA. Nonicteric. NECK: Supple/ non tender/ full ROM LYMPH NODES: No adenopathy. CARDIOVASCULAR: RRR/ S1S2/ No m/g/c/r. PULMONARY: Respirations easy and regular. Breath sounds clear bilaterally. No rhonchi/ rales/ wheezes. GI: Abdomen soft, nondistended. No tenderness, rebound, guarding or masses. No hepatosplenomegaly. Bowel sounds normoactive. MUSCULOSKELETAL: No CVA tenderness. Normal gait and movement of extremities. No tenderness/ swelling/ crepitus. SKIN: General-warm, pink and dry. No rashes/ lesions. PSYCHIATRIC: Euthymic. Affect congruent with mood. Normal thought process. Return in about 3 months (around 04/27/2021) for hepatic steatosis; gi bleed. Medication changes/ treatment plan reviewed. Risks and benefits discussed. Expressed understanding. Patient Instructions Await EGD and colonoscopy Return in about week for labs Continue current therapy Low-fat diet Weight loss- try eating several small meals a day consisting of lean protein and non- starchy vegetables (at least 3 x) and low sugar / high fiber fruits no more than twice Increase water to at least 64 ounces per day Exercise as tolerated Avoid alcohol Avoid frequent use of high-dose Tylenol/acetaminophen- do not exceed 3200 mg a day Dznz-qvl-yfylapx Vitamin-E 400 units daily Avoid eating 1-2 hours prior to bed May need to elevate head of bed approximately 45??. Avoid frequent/chronic use of NSAIDs such as ibuprofen/naproxen Avoid fried/ greasy/ spicy foods/ red sauces/ citrus especially in the evening Reduce caffeine/ carbonated beverages/alcohol/tobacco If you had lab work ordered at this visit, we will contact you regarding the results once all results have been received and reviewed. You may be able to see results in your my chart as they come in, please remember the computer is only given parameters for what is ???normal?? or ???abnormal?? .The significance of anything in the ???abnormal?? range is based on the remaining test results. Aga in we will contact you when we have received and reviewed all the results. Please arrive 15 minutes prior to all appointments Please schedule follow-up in near future to discuss any concerns that were not addressed fully at today's office visit. To continue to provide excellent patient care, you may receive a survey regarding your visit today.To help us serve you better, please complete and return. These surveys are completely anonymous. If you have any concerns/ questions regarding today's visit please call. Nonalcoholic Fatty Liver Disease (NAFLD) Nonalcoholic fatty liver disease (NAFLD) is a common disease of the liver. It occurs when you have too much fat in the liver. If NAFLD is severe, it can cause liver damage that seems like the damage caused by drinking too much alcohol. But NAFLD is not caused by drinking alcohol. This sheet tells you more about NAFLD and how it can be managed. How the liver works?? The liver is an organ??in the upper right side of the belly (abdomen). It has many important jobs. These include: ?? Breaking down (metabolizing) proteins, carbohydrates, and fats ?? Making a substance called bile that helps break down fats ?? Storing and releasing sugar (glucose) into the blood to give the body energy ?? Removing toxins from the blood ?? Helping with blood clotting Understanding NAFLD A healthy liver may contain some fat. But if too much fat builds up in the liver, this causes NAFLD. NAFLD can be mild, causing fatty liver. Or it can be more severe and have inflammation as well as excess fat. This can cause non- alcoholic steatohepatitis (LOREDO). ?? Fatty liver. With fatty liver, the liver simply has more fat than normal. This extra fat usuallydoes not harm the liver. ?? LOREDO. With LOREDO, the fatty liver becomes inflamed over time. LOREDO is serious because it can leadto scarring of the liver (fibrosis).??Over time, the scarring may lead to cirrhosis of the liver. This can eventually cause liver failure or liver cancer. Causes and risk factors of NAFLD Doctors don't know what causes NAFLD. But certain things??make the problem more likely to happen. These include: ?? Obesity ?? Prediabetes or diabetes ?? High levels of fat found in the blood (cholesterol and triglycerides) ?? Taking certain medicines? Having polycystic ovary syndrome (PCOS) Symptoms of NAFLD Most people with NAFLD have no symptoms. If symptoms do occur, they can include: ?? Tiredness ?? Weakness ?? Weight loss ?? Loss of appetite ?? Nausea and vomiting ?? Belly pain and cramping ?? Yellowing of the skin and eyes (jaundice) ?? Dark urine ?? Light-colored stools that look kaur ?? Swelling in the belly or legs Diagnosing NAFLD Your healthcare provider??may think you have NAFLD if routine blood tests show??high levels of liver enzymes. This may mean you have??a liver problem. You may need 1 or more imaging tests, such as anultrasound, CT, or MRI. You may need more??blood tests to look for other causes of liver disease.??You may also need a liver biopsy. During this test, a hollow needle is used to remove a tiny tissue sample from your liver. This tissue is then checked in a lab. This test can find signs of damage to liver tissue. It can also help figure out the cause of the damage and tell the difference between fatty liver and LOREDO. Treating NAFLD Treatment for NAFLD varies for each person. The best early treatment is to treat any conditions that are causing metabolic syndrome. This syndrome is a group of conditions that includes: ?? High blood pressure ?? High levels of cholesterol and triglycerides ?? Being overweight or obese ?? Diabetes Your healthcare provider will monitor your health and treat any symptoms or underlying health problems you have. Your provider will also work with you to control your risk factors. This will make liver??damage less likely. In fact, treating those underlying conditions can often improve liver disease.??You may need to take certain medicines, but no medicine will cure NAFLD. This is why treating the underlying conditions is most important. Your plan may include: ?? Losing excess weight ?? Getting regular exercise ?? Controlling diabetes ?? Controlling high cholesterol or triglyceride levels ?? Taking medicines and vitamins as prescribed by your provider ?? Not smoking ?? Not drinking alcohol ?? Eating a healthy diet Living with NAFLD If NAFLD is caught early, it can be managed with treatment. Your healthcare provider will discuss further treatment choices with you as needed. Be sure to ask your provider about recommended vaccines. These include vaccines for viruses that can cause liver disease. [email or web address] last reviewed this educational content on 08/01/2019 ?? [id number] The [employer]. All rights reserved. This information is not [...] ?? Bleeding along with feeling lightheaded or dizzkyra Sarah last reviewed this educational content on 11/29/2018 ?? [id number] [employer]. All rights reserved. This information is not intended as a substitute for professional medical care. Always follow your healthcare professional's instructions. documented in this encounter Plan of Treatment Upcoming Encounters Date Type Department Care Team (Late st Contact Info) Description 11/26/2024 1:45 PM CDT Office Visit [facility] - Family Medicine [facility] [address] [place] [address] Bj Tatum MD [address] [address] Scheduled Orders Name Type Priority Associated Diagnoses Orde r Schedule HEPATITIS PANEL ACUTE (AHP) Lab Routine Hepatic steatosis Hematemesis with nausea Expected: 01/25/2021, Expires: 02/25/2021 BASIC METABOLIC PANEL W/ CALCIUM TOTAL Lab Today Hepatic steatosis Hematemesis with nausea Expected: 01/25/2021, Expires: 02/25/2021 GASTRO PROCEDURE Procedures Routine Hematemesis with nausea Expected: 07/31/2021 (Approximate), Expires: 07/28/2022 GASTRO PROCEDURE Procedures Routine BRBPR (bright red blood per rectum) Expected: 07/31/2021 (Approximate), Expires: 07/28/2022 documented as of this encounter Results * PROTIME (PT) (PROTHROMBIN TIME) (02/28/2021 12:50 PM CDT) PROTIME-PATIENT 12.2 11.6 - 14.8 sec 02/28/2021 1:16 PM CDT [facility] INR 0.9 0.9 - 1.2 02/28/2021 1:16 PM CDT [facility] Comment: Therapeutic Ranges INR = 2.0-3.0: Venous thromb, atrial fib, pul embolism, tissue heart valve, ami. INR = 2.5-3.5: Mechanical heart valve Critical value for INR is >/= 4.5 Blood Venipuncture / Unknown 02/28/2021 12:50 PM CDT 02/28/2021 12:53 PM CDT [facility] HEMATOLOGY ORDERABLES Fin al Result Performing Organization Address City/[facility]/ZIP Co de Phone Number [facility] [address] [place] [address] * (ABNORMAL) HEPATIC FUNCTION PANEL (02/28/2021 12:50 PM CDT) T BILI 0.4 <=1.2 mg/dL 02/28/2021 2:08 PM CDT [facility] BILIRUBIN,DIRECT <0.3 <=0.3 mg/dL 02/28/2021 2:08 PM CDT [facility] ALKALINE PHOSPHATASE 103 40 - 130 U/L 02/28/2021 2:08 PM CDT [facility] SGOT (AST) 47(H) <=40 U/L 02/28/2021 2:08 PM CDT [facility] SGPT (ALT) 76(H) <=41 U/L 02/28/2021 2:08 PM CDT [facility] TOTAL PROTEIN 8.0 6.0 - 8.3 g/dL 02/28/2021 2:08 PM CDT [facility] ALBUMIN 4.6 3.5 - 5.2 g/dL 02/28/2021 2:08 PM CDT [facility] Comment: The colormetric methods used for the determination of Albumin may lead to falsely elevated test results in patients suffering from renal failure or insufficiency due to interference with other proteins. Blood Venipuncture / Unknown 02/28/2021 12:50 PM CDT 02/28/2021 12:53 PM CDT [facility] CHEMISTRY ORDERABLES Kadi l Result [facility] [address] [facility] [place] [address] documented in this encounter Visit Diagnoses Diagnosis Hematemesis with nausea- Primary Hepatic steatosis Other chronic nonalcoholic liver disease Leukocytosis, unspecified type BRBPR (bright red blood per rectum) Hemorrhage of rectum and anus documented in this encounter Additional Health Concerns Assessment Noted Time PHQ-9 Depression Total Score: 0 05/05/20 19 3:00 PM [employer] 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
--- OUTSIDE RECORDS SUMMARY | 2024-06-27 19:50 | XMS_ITS | Encounter Summary ---
Author Organization [facility] Address [address] [place] [address] Phone Care Team Providers Care Business Continuity Global Director Name Role Phone Bj Tatum MD Primary Care Provider [phone] Reason for Referral * Consult, Test & Initiate Treatment (Routine) - Closed Specialty Diagnoses / Procedures Referred By Ferny solis Referred To Contact Diagnoses Skin lesion Bk Mendoza APRN, AUBREY #2 [facility] [address] [place] [address] Phone: tel: fax: [facility] [address] [address] Phone: tel: fax: Referral ID Status Reason Start Date Expiration Date Visits Re quested Visits Authorized [id number] Closed 11/28/2023 1 1 Scheduling Instructions Zachary is being referred for recurrently infected skin lesion, gluteal cleft, desires removal. Please contact patient for scheduling questions or concerns. Reason for Visit * Reason Comments Preventive Care Encounter Details Date Type Department Care Team (Latest Contact Info) Description 11/28/2023 1:45 PM CDT Office Visit [facility] [address] [place] [address] Bk Mendoza, FLAKING ROLL OPERATOR, MANAGER TRUST [address] [facility] [address] [place] [address] Pure hypercholesterolemia (Primary Dx); Hyperglycemia; Hepatic steatosis; Skin lesion Discharge Disposition: Discharged to home or Selfcare Social History Tobacco Use Types Packs/Day Years Used Date Smoking Tobacco: Former Cigarettes 1 21 0 07/17/1995 - 07/17/2016 Smokeless Tobacco: Never Tobacco Cessation:Counseling Given: No Alcohol Use Standard Drinks/Week Comments Not Currently [...] Sign Reading Time Taken Comments Blood Pressure 130/72 11/28/2023 1:44 PM CDT Pulse 73 11/28/2023 1:44 PM CDT Temperature 36.4 ??C (97.6 ??F) 11/28/2023 1:44 PM CD T Respiratory Rate 16 11/28/2023 1:44 PM CDT Oxygen Saturation 99% 11/28/2023 1:44 PM CDT Inhaled Oxygen Concentration - - Weight 105.8 kg (233 lb 3.2 oz) 11/28/2023 1:44 PM CDT Height 185.4 cm (6' 1 ) 11/28/2023 1:44 PM CDT Body Mass Index 30.77 11/28/2023 1:44 PM CDT documented in this encounter Functional Status * Question Answer Date of Assessment Author Little interest or pleasure in doing things Not at all 11/28/2023 1:42 PM CDT Breana Vanessa CMA Feeling down, depressed, or hopeless Not at all 11/28/2023 1:42 PM CDT Breana Vanessa CMA * Over the past 2 weeks, how often have you been bothered by any of the following problems? Question Answer Date of Assessment Author Patient Health Questionnaire -2 Score 0 11/28/2023 1:42 PM CDT Breana Vanessa CMA documented as of this encounter Progress Notes * Breana Vanessa CMA - 11/28/2023 1:45 PM CDT Zachary Capps, 43 y.o., male is here for Preventive Care Medication Refills: Patient reports/denies need for medication refills. Orders Pended: no Requested Prescriptions No prescriptions requested or ordered in this encounter Home Medications Medication Sig Start Date End Date Taking? Authorizing Provider APPLE CIDER VINEGAR PO Take by mouth daily. ProviderBriseyda MD VITAMIN D PO Take by mouth daily. ProviderBriseyda MD VITAMIN E PO Take by mouth daily. ProviderBriseyda MD There are no discontinued medications. I have reviewed the home medication list with the patient and have reconciled discrepancies. The list is accurate to the best of my knowledge. Smoking Status: Social History Tobacco Use Smoking status: Former Packs/day: 1.00 Years: 21.00 Additional pack years: 0.00 Total pack years: 21.00 Types: Cigarettes Quit date: 07/17/2016 Years since quittin.3 Smokeless tobacco: Never Vaping Use Vaping Use: Former Substance Use Topics Alcohol use: Not Currently Comment: 2-3 beer daily Drug use: Yes Types: Marijuana Comment: Daily Smoking Cessation Counseling Given: no Health Care Maintenance: Health Maintenance Due Topic Date Due TdaP Immunization Never done Hepatitis B Immunization (1 of 3 - 19+ 3-dose series) Never done SARS-COV-2 Immunization (2022- season) 2023 Orders Pended: no The following BPA's have been addressed with the patient today: Depression, Nutrition, and Advanced Care Planning ABUSE, FUNCTIONAL, and VAT * Bk Mendoza APRN, AUBREY - 11/28/2023 1:45 PM CDT Subjective: Subjective CC: F/U skin lesion and HLD Zachary Capps is a 43-year-old male who presents the office today follow-up forskin lesion hyperlipidemia. He has a recurrently infected skin lesion to the gluteal cleft area. States there is always lesion there. Then it will become increasingly painful open and drain foul-smelling material then closed backup. He has been dealing this for many years. Would like a surgical consult to see about definitive removal. Due for labs. He is drinking some alcohol, but reports he is cut back significantly from previous fatty liver changes. He has no other acute concerns. The history is provided by the patient and medical records. No hourly sign language interpreter was used. Preventive Care Pertinent negatives include no abdominal pain, arthralgias, chest pain, chills, congestion, coughing, fatigue, fever, headaches, myalgias, nausea, numbness, rash, sore throat, vomiting or weakness. Review of Systems Constitutional: Negative for activity change, chills, fatigue and fever. HENT: Negative for congestion, ear discharge, ear pain, nosebleeds, postnasal drip, sinus pressure,sinus pain, sore throat and trouble swallowing. Eyes: Negative for photophobia, pain and discharge. Respiratory: Negative for cough, chest tightness, shortness of breath and wheezing. Cardiovascular: Negative for chest pain and palpitations. Gastrointestinal: Negative for abdominal pain, constipation, diarrhea, nausea and vomiting. Genitourinary: Negative for dysuria, flank pain, frequency, hematuria, penile discharge, testicularpain and urgency. Musculoskeletal: Negative for arthralgias, back pain and myalgias. Skin: Positive for wound. Negative for rash. Neurological: Negative for dizziness, seizures, syncope, weakness, numbness and headaches. Psychiatric/Behavioral: Negative for suicidal ideas. Allergies No Known Allergies Medications Current Outpatient Medications: MAGNESIUM LACTATE PO, Take by mouth., Disp: , Rfl: POTASSIUM CHLORIDE PO, Take by mouth., Disp: , Rfl: Turmeric (QC TUMERIC COMPLEX PO), Take 1,000 mg by mouth., Disp: , Rfl: VITAMIN D PO, Take by mouth daily., Disp: , Rfl: Past Medical History Past Medical History Positives Diagnosis Date Polyp of colon Past Surgical History Past Surgical History: Procedure Laterality Date COLONOSCOPY COLONOSCOPY N/A 03/03/2021 Procedure: COLONOSCOPY -TICS, SPASTIC COLON, HEMORRHOIDS; Surgeon: William Overton MD; Location:[facility]; Service: Gastroenterology CYST REMOVAL October 2010 pilonidal cyst CYST REMOVAL OTHER SURGICAL HISTORY excision for perianal hidradenitis UPPER GASTROINTESTINAL ENDOSCOPY N/A 03/03/2021 Procedure: EGD - SUPERFICIAL DUODENAL ULCER, ANTRAL BIOPSIES, HIATAL HERNIA; Surgeon: William Overton MD; Location: [facility]; Service: Gastroenterology Family History Family History Problem Relation Age of Onset Diabetes Mother Hypertension Mother Cancer Father Social History Social History Tobacco Use Smoking status: Former Packs/day: 1.00 Years: 21.00 Additional pack years: 0.00 Total pack years: 21.00 Types: Cigarettes Quit date: 07/17/2016 Years since quittin.3 Smokeless tobacco: Never Vaping Use Vaping Use: Former Substance Use Topics Alcohol use: Not Currently Comment: 2-3 beer daily Drug use: Yes Types: Marijuana Comment: Daily Objective: Objective Physical Exam Vitals and nursing note reviewed. Constitutional: General: He is not in acute distress. Appearance: He is well-developed. He is obese. He is not diaphoretic. HENT: Head: Normocephalic and atraumatic. Right Ear: External ear normal. Left Ear: External ear normal. Nose: Nose normal. Eyes: Conjunctiva/sclera: Conjunctivae normal. Pupils: Pupils are equal, [...] soft. Tenderness: There is no abdominal tenderness. Musculoskeletal: General: No deformity. Normal range of motion. Cervical back: Normal range of motion and neck supple. Lymphadenopathy: Cervical: No cervical adenopathy. Skin: General: Skin is warm and dry. Findings: Lesion present. No rash. Neurological: Mental Status: He is alert and oriented to person, place, and time. Psychiatric: Behavior: Behavior normal. Thought Content: Thought content normal. Judgment: Judgment normal. Vitals: 11/28/23 1344 BP: 130/72 Pulse: 73 Resp: 16 Temp: 97.6 ??F (36.4 ??C) TempSrc: Temporal SpO2: 99% Weight: 233 lb 3.2 oz (105.8 kg) Height: 6' 1 (1.854 m) Assessment and Plan Assessment & Plan See Diagnoses, Orders, Follow-up, and Instructions 1. Pure hypercholesterolemia - LIPID PANEL; Future - BASIC METABOLIC PANEL W/ CALCIUM TOTAL; Future 2. Hyperglycemia - HEMOGLOBIN A1C W/ ESTIMATED GLUCOSE; Future 3. Hepatic steatosis - COMPLETE BLOOD COUNT (CBC) WITH DIFF; Future - PROTIME (PT) (PROTHROMBIN TIME); Future - HEPATIC FUNCTION PANEL; Future - GAMMA GLUTAMYL TRANSFERASE (GGTP); Future 4. Skin lesion - GEN SURGICAL REFERRAL; Future Hyperlipidemia. Encouraged healthy diet, exercise, weight loss. Check labs. Hyperglycemia A1c. Hepatic steatosis. Check liver function testing and advised alcohol cessation. Skin lesion. Surgical consult. Follow-up yearly. I discussed all new medications and potential side effects or risks associated with them. Patient is to contact our office with any concerns. Patient instructions and educational materials were given to the patient. Patient (or patient ocean import representative) demonstrates verbal understanding of instructions given. Patient should follow up with their PCP for general health maintenance needs. Patient should contact our office if their problems persist or call 911/go the to ER if issues become more persistent. If any referrals have been made, patient should contact our office with in 3-5 days if they have not heard anything from our referral team or the referring physician. Documentation for this visit on 11/28/23 was completed using a template. I have seen and examined the patient. Everything documented was personally performed at this visit with the necessary additions, deletions and changes made as appropriate. Note: Portions of this chart may have been completed with voice recognition software and may contain slight errors unrecognizable by the users. This would in no way affect the patient's care and is meant to improve length and quality of medical decision making and history taking. documented in this encounter Plan of Treatment Upcoming Encounters Date Type Department Care Team (Late st Contact Info) Description 11/26/2024 1:45 PM CDT Office Visit [facility] #[address] [place] [address] Bj Tatum MD [address] [address] Scheduled Referrals Name Type Priority Associated Diagnoses Orde r Schedule GEN SURGICAL REFERRAL Outpatient Referral Routine Skin lesion Expected: 11/28/2023, Expires: 11/27/2024 documented as of this encounter Results * HEMOGLOBIN A1C W/ ESTIMATED GLUCOSE (11/28/2023 2:49 PM CDT) HGB-A1C 5.8 4.0 - 6.0 % 11/28/2023 3:58 PM CDT [facility] Est Average Glucose 119.8 mg/dL 11/28/2023 3:58 PM CDT [facility] Blood Venipuncture / Unknown 11/28/2023 2:49 PM CDT 11/28/2023 3:35 PM CDT Narrative [facility] - 11/28/2023 3:58 PM CDT HEMOGLOBIN A1C: DIABETIC PATIENTS: WELL-CONTROLLED: ?? 6.2 - 7.0 INTERMEDIATE WELL-CONTROLLED: ??7.0 - 9.0 POORLY-CONTROLLED: ??>9.0 Bk Mendoza APRN, MANAGER TRUST CHEMISTRY ORDERA BLES Final Result [facility] [address] [place] [address] * (ABNORMAL) GAMMA GLUTAMYL TRANSFERASE (GGTP) (11/28/2023 2:49 PM CDT) GAMMA GT 107(H) 12 - 64 U/L 11/29/2023 12:20 AM CDT [facility] Blood Venipuncture / Unknown 11/28/2023 2:49 PM CDT 11/28/2023 3:35 PM CDT Bk Mendoza APRN, MANAGER TRUST CHEMISTRY ORDERA BLES Final Result [facility] [address] [place] [address], [place] * (ABNORMAL) HEPATIC FUNCTION PANEL (11/28/2023 2:49 PM CDT) T BILI 0.3 0.2 - 1.2 mg/dL 11/28/2023 4:00 PM CDT [facility] BILIRUBIN,DIRECT 0.1 0.0 - 0.5 mg/dL 11/28/2023 4:00 PM CDT [facility] ALKALINE PHOSPHATASE 93 40 - 150 U/L 11/28/2023 4:00 PM CDT [facility] SGOT (AST) 35(H) 5 - 34 U/L 11/28/2023 4:00 PM CDT [facility] SGPT (ALT) 48 0 - 55 U/L 11/28/2023 4:00 PM CDT [facility] TOTAL PROTEIN 8.4(H) 6.3 - 8.2 g/dL 11/28/2023 4:00 PM CDT [facility] ALBUMIN 4.4 3.5 - 5.0 g/dL 11/28/2023 4:00 PM CDT [facility] Blood Venipuncture / Unknown 11/28/2023 2:49 PM CDT 11/28/2023 3:35 PM CDT us Bk Mendoza FLAKING ROLL OPERATOR, AUBREY CHEMISTRY ORDERA BLES Final Result [facility] #1 [place] [address] * (ABNORMAL) BASIC METABOLIC PANEL W/ CALCIUM TOTAL (11/28/2023 2:49 PM CDT) Pathologist [facility] SODIUM 140 136 - 145 mmol/L 11/28/2023 4:00 PM CDT [facility] POTASSIUM 3.9 3.5 - 5.1 mmol/L 11/28/2023 4:00 PM CDT [facility] CHLORIDE 104 98 - 107 mmol/L 11/28/2023 4:00 PM CDT [facility] CO2, VENOUS 26 22 - 30 mmol/L 11/28/2023 4:00 PM CDT [facility] ANION GAP 13.9 <18.0 mmol/L 11/28/2023 4:00 PM CDT [facility] GLUCOSE 89 70 - 99 mg/dL 11/28/2023 4:00 PM CDT [facility] BUN 11 9 - 21 mg/dL 11/28/2023 4:00 PM CDT [facility] CREATININE, BLOOD 1.12 0.70 - 1.30 mg/dL 11/28/2023 4:00 PM CDT [facility] BUN/CREATININE RATIO 10(L) 12 - 20 ratio 11/28/2023 4:00 PM T [facility] CALCIUM 9.5 8.7 - 10.5 mg/dL 11/28/2023 4:00 PM CDT [facility] IS THE PATIENT REQUIRED TO BE FASTING? No 11/28/2023 4:00 PM CDT [facility] GFR, ESTIMATED >60 >=60 11/28/2023 4:00 PM T [facility] Comment: Creatinine Clearance is the preferred criteria for selecting drug dose adjustments in renally impaired patients. ??The GFR is provided as additional pertinent clinical information. GFR is reported in mL/min/1.73 sq m. Calculation based on the Chronic Kidney Disease Epidemiology Collaboration (CKD- EPI) equation refit without adjustment for race. GFR, EST. >60 >=60 024 4:00 PM CDT [facility] GFR, EST. NONAFRICAN >60 >=60 11/28/2023 4:00 PM T [facility] Blood Venipuncture / Unknown 11/28/2023 2:49 PM CDT 11/28/2023 3:35 PM CDT us Bk Mendoza APRN, CNP CHEMISTRY ORDERA BLES Final Result [facility] #1 [place] [address] * PROTIME (PT) (PROTHROMBIN TIME) (11/28/2023 2:49 PM CDT) PROTIME-PATIENT 13.4 11.6 - 14.8 sec 11/28/2023 3:52 PM CDT [facility] INR 1.0 0.9 - 1.2 11/28/2023 3:52 PM CDT [facility] Comment: Therapeutic Ranges INR = 2.0-3.0: Venous thromb, atrial fib, pul embolism, tissue heart valve, ami. INR = 2.5-3.5: Mechanical heart valve Critical value for INR is >/= 4.5 Blood Venipuncture / Unknown 11/28/2023 2:49 PM CDT 11/28/2023 3:35 PM CDT Bk Mendoza APRN, CNP HEMATOLOGY ORDER JULIEN Final Result Performing Organization Address [facility] Co de Phone Number [facility] [address] [place] [address] * (ABNORMAL) LIPID PANEL (11/28/2023 2:49 PM CDT) CHOLESTEROL 183 <200 mg/dL 11/28/2023 4:00 PM CDT [facility] TRIGLYCERIDES 313(H) <150 mg/dL 11/28/2023 4:00 PM CDT [facility] HDL CHOLESTEROL 42 >40 mg/dL 4:00 PM CDT [facility] LDL 78 <130 mg/dL 11/28/2023 4:00 PM CDT [facility] VLDL 63(H) 10 - 50 mg/dL 11/28/2023 4:00 PM CDT [facility] CHOL/HDL RATIO 4.4 0.0 - 4.4 11/28/2023 4:00 PM CDT [facility] NON-HDL CHOLESTEROL 141(H) <130 mg/dL 11/28/2023 4:00 PM CDT [facility] IS THE PATIENT REQUIRED TO BE FASTING? No 11/28/2023 4:00 PM CDT [facility] Blood Venipuncture / Unknown 11/28/2023 2:49 PM CDT 11/28/2023 3:35 PM CDT us Bk Mendoza APRN, MANAGER TRUST CHEMISTRY ORDERA BLES Final Result [facility] [address] [place] [address] documented in this encounter Visit Diagnoses Diagnosis Pure hypercholesterolemia- Primary Hyperglycemia Other abnormal glucose Hepatic steatosis Other chronic nonalcoholic liver disease Skin lesion Unspecified disorder of skin and subcutaneous tissue documented in this encounter Additional Health Concerns Assessment Noted Time PHQ-9 Depression Total Score: 0 05/05/20 19 3:00 PM SOFTWARE VERIFICATION ENGINEER documented as of this encounter Care Teams Business Continuity Global Director Relationship Specialty Start Date End Date Bj Tatum MD [address] [address] PCP - General Family Medicine 05/31/15 documented as of this encounter
--- OUTSIDE RECORDS SUMMARY | 2024-06-27 19:50 | XMS_ITS | Encounter Summary ---
Author Organization [facility] Address [address] [place] [address] Phone Care Team Providers Care Cork Tile Floor Layer Name Role Phone Bj Tatum MD Primary Care Provider [phone] Encounter Details Date Type Department Care Team (Late st Contact Info) Description 07/28/2019 Telephone [facility] - Gastroenterology [facility] #2 [place] [address] Nacho London MD [address] [place] [address] Social History Tobacco Use Types Packs/Day Years [...] encounter Miscellaneous Notes * Telephone Encounter - Jessenia Taylor - 07/28/2019 9:19 AM CST Referral letter to patient ER ROOM HELPER documented in this encounter Plan of Treatment Upcoming Encounters Date Type Department Care Team (Late st Contact Info) Description 11/26/2024 1:45 PM CDT Office Visit [facility] - Family [facility] #2 [place] [address] Bj Tatum MD #[address] [address] documented as of this encounter Visit Diagnoses Not on filedocumented in this encounter Additional Health Concerns Assessment Noted Time PHQ-9 Depression Total Score: 0 05/05/20 19 3:00 PM BOILER ROOM HELPER documented as of this encounter Care Teams Cork Tile Floor Layer Relationship Specialty Start Date End Date Bj Tatum MD #[address] [address] PCP - General Family Medicine 05/31/15 documented as of this encounter
--- OUTSIDE RECORDS SUMMARY | 2024-06-27 19:50 | XMS_ITS | Encounter Summary ---
Author Organization [facility] Address [address] [place] [address] Phone Care Team Providers Care Public Health Sanitarian Name Role Phone Bj Tatum MD Primary Care Provider [phone] Encounter Details Date Type Department Care Team (Late st Contact Info) Description 07/10/2021 Telephone [facility] #2 [place] [address] Bj Tatum MD #[address] [address] Social History Tobacco Use Types Packs/Day Years [...] COVID-19? No / Unsure 07/10/2021 8:47 AM PROCTOLOGIST documented as of this encounter Miscellaneous Notes * Telephone Encounter - Ewelina Jones - 07/11/2021 6:48 PM CST Called patient and he didn't want to make a ER appointment. Patient made a 7 month f/u with Dr. Bj Tatum at 08/28/2021. TOLOGIST * Telephone Encounter - Bj Tatum MD - 07/10/2021 11:52 PM PROCTOLOGIST Schedule him to see me or Bk for ER follow-up. Thanks! TOLOGIST documented in this encounter Plan of Treatment Upcoming Encounters Date Type Department Care Team (Late st Contact Info) Description 11/26/2024 1:45 PM CDT Office Visit [facility] - Family Medicine [facility] #2 [place] [address] Bj Tatum MD #[address] [address] documented as of this encounter Visit Diagnoses Not on filedocumented in this encounter Additional Health Concerns Assessment Noted Time PHQ-9 Depression Total Score: 0 05/05/20 19 3:00 PM PROCTOLOGIST documented as of this encounter Care Teams Public Health Sanitarian Relationship Specialty Start Date End Date Bj Tatum MD #[address] [address] PCP - General Family Medicine 05/31/15 documented as of this encounter
--- OUTSIDE RECORDS SUMMARY | 2024-06-27 19:50 | XMS_ITS | Encounter Summary ---
Author Organization [facility] [employer] Care Team Providers Care Hop Farmer Name Role Phone Bj Tatum MD Primary Care Provider Encounter Details Date Type Department Care Team (Latest Contact Info) Description 07/13/2022 Travel Social History Tobacco Use Types Packs/Day [...] Coronavirus/COVID-19? No / Unsure 07/13/2022 12:46 PM SERVICE DIRECTOR documented as of this encounter Plan of Treatment Upcoming Encounters Date Type Department Care Team (Late st Contact Info) Description 11/26/2024 1:45 PM CDT Office Visit [facility] - Family [facility] #2 [place] [id number] Bj Tatum MD #[address] [address] documented as of this encounter Visit Diagnoses Not on filedocumented in this encounter Additional Health Concerns Assessment Noted Time PHQ-9 Depression Total Score: 0 05/05/20 19 3:00 PM SERVICE DIRECTOR documented as of this encounter Care Teams Hop Farmer Relationship Specialty Start Date End Date Bj Tatum MD #2 [facility] [address] [place] [address] PCP - General Family Medicine 05/31/15 documented as of this encounter
== END 2024-06-20 14:25 | disposition home or self-care (01) ==
PROVIDERS: Emergency Provider Registered Nurse; PCP Family Medicine
DX: L02.31 Cutaneous abscess of buttock (principal)
CPT/HCPCS: 87070; 87075; 87205; 99213; G0463